=== PATIENT | female | born 1945 | race Caucasian/White ===

== ENCOUNTER 2016-03-13 14:48 | Inpatient (IN) | payer MEDICARE, MEDICAID ==
[2016-03-13] VITALS (7 sets, daily range): BP systolic 154–190; BP diastolic 74–87; PULSE 77–103; RESP 16–40; O2SAT 92–100
[~2016-03-13] VITALS: Ht 152.4 cm; Wt 50.5 kg
[~2016-03-13 14:48] MED LIST: ALBU2.5V4 INH; ALPR0.254 PO; AMLO10TA3 PO; ANAS1TAB7 PO; APIX2.5T PO; ASPI-973 PO; CALC-51 PO; CHOL100043 PO; CYAN250L PO; FLUT12AE4 INH; FUR20 PO; IBUP-1827 PO; IPRA4AER IH; ISOS30TA4 PO; LEVE10006 PO; LOPE2CAP PO; LORA0.5T PO; NIC7 TOPICAL; NITR0.4T SL; OMEP20CA11 PO; PHEN100C11 PO; POTA10CA42 PO; PRE10 PO; ROSU40TA20 PO; SERT100T9 PO; [UNRECOGNIZED DRUG - CODE] MM
--- NOTE | 2016-03-13 15:38 | DRSVH ---
PROCEDURE: X-RAY CHEST ONE VIEW, PORTABLE ([id number]) INDICATIONS: shortness of breath TECHNIQUE: One view of the chest was acquired. COMPARISON: 03/01/2016 FINDINGS: Chest is rotated to the left. Surgical changes and devices: Right cervical surgical clips, possibly representing thyroidectomy and guillermo resection Lungs and pleura: Small left pleural effusion appears improved. Degree of pulmonary vascular congesti on is stable, small septal lines present at the right base. Left upper lung field is relatively radio lucent. Focal density at the left base medially is no longer present. Mediastinum: Mediastinal contours appear normal. Heart size is normal. Aortic calcifications. Bones and chest wall: No suspicious bony lesions. Overlying soft tissues appear unremarkable. IMPRESSION: 1. Appearance is most suggestive of asymmetrical pulmonary edema, improved from last exam. This could also represent resolving pneumonia. 2. Small left pleural effusion may be slightly smaller. Dictated by: Luis A Rivera M.D. on 03/13/2016 at 15:36 Approved by: Luis A Rivera M.D. on 03/13/2016 at 15:36
[2016-03-13 15:49] LABS: EOSINOPHILS % (AUTO) 0.4 % (0-5); Mean Corpuscular Hemoglobin 23.3 pg (27.0-35.0); NEUTROPHILS % (AUTO) 75.8 % (40-74)
[2016-03-13 16:03] LABS: BASOPHILS % (AUTO) 0.4 % (0-3); MONOCYTES % (AUTO) 9.3 % (4-12); Mean Corpuscular Volume 82.8 fL (81-100); Platelet Count 147 bil/L (150-400)
[2016-03-13 16:25] LABS: TROPONIN T 0.043 ug/L (0.0-0.011)
[2016-03-13] MEDS ORDERED: Ipratropium 0.02% 0.5 mg/2.5 mL Inhalation Solution NEB ONE (16:50)
[2016-03-13] MEDS ORDERED: Albuterol 2.5 mg/3 mL Inhalation Solution NEB ONE (16:50)
--- NOTE | 2016-03-13 17:11 | ABG ---
DateTimeAnalyzed 17:06:00 -_ pH ____7.372 - 7.350 7.450 pCO2 ___60.9__ -mmHg 35.0 45.0 pO2 ___82.5__ -mmHg 69.0 116 HCO3- ___34.6__ -mmol/L 22.0 26.0 ABE ____8.4__ -mmol/L -2.0 2.0 tHb ____8.8__ -g/dL O2Hb ___92.4__ -% COHb ____3.1__ -% MetHb ____0.8__ -% sO2 ___96.2__ -% FIO2 ___31.0__ -% Drawn By jj - Date/Time Notified____ 17:10:00 -_ Spontaneous_RR ___30.0__ -b/min Oxygen Device 1 __CANNULA - Notified By jj - Notified Whom dr hudson - B 763 -mmHg tO2 ___11.6__ -Vol% Lars test _Positive -
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
[2016-03-13] MEDS ORDERED: Alum-Mag Hydrox-Simeth 30 mL Suspension PO PRN (18:10)
--- NOTE | 2016-03-13 18:53 | PCM.HPMED ---
Subjective Date of Service Mar 13, 2016 Primary Provider: Admitting Physician: Nataly Hayes MD Primary Care Physician: Emeterio Cadena MD Attending Physician: Nataly Hayes MD Chief Complaint: brought in by family because of worsening shortness of breath HISTORY was OBTAINED FROM PATIENT grandson / [facility] NOTES History of present illness 70-year-old female with known CHF and COPD and dementia, DO NOT RESUSCITATE/prior palliative care plan but family unable to care for her at this point, worsening of shortness of breath. Per ER doc, bronchospastic in the ER, she had home meds this am. There is questionable compliance with HOME lasix, duo nebs, Trilogy. ongoing smoking. Oxygen dependent at home. On 03/01/2016 she was evaluated by ER, due to increasing fluid in legs and sob/desat at home 80%, s/p lasix 20 iv x 1, discharged home w / lasix 20 PO. however, since that time, Per grandson, swelling of legs worse. She has refused SNF in past, generally wants to be at home as long as possible w / known severe morbidity. She does not endorse pneumonia/bronchitis symptoms of phelgm.urinary freq w/ lasix. Prior admission 12/2015 was attributed to pneumonia/COPD exacerbation w/ probable CHF. Review of Systems - none of the following - sick contact / wt change/ BOYD / n/v/ diarrhea / bleeding/bruising// yeast infections / rash FAMILY HX parents SOCIAL HX smoker, social drinker MEDICATIONS Amlodipine (Amlodipine) 10 Mg Tablet 10 MG PO DAILY Anastrozole (Anastrozole) 1 Mg Tablet 1 MG PO DAILY Apixaban (Eliquis) 2.5 Mg Tablet 2.5 MG PO BID Aspirin (Aspirin) 81 Mg Tablet 81 MG PO DAILY Calcium Carbonate/Vitamin D3 (Calcium 500 + Vit D 400 Tablet) 1 Each Tablet 1 EACH PO BID Cholecalciferol (Vitamin D3) (Vitamin D) 1,000 Unit Tablet 1,000 UNIT PO DAILY Cyanocobalamin (Vitamin B-12) (Vitamin B-12) 250 Mcg Lozenge 250 MCG PO DAILY Fluticasone/Salmeterol (Advair Hfa 115-21 Mcg Inhaler) 12 Gm Hfa.aer.ad 2 PUFF INH BID Furosemide (Furosemide) 20 Mg Tab 20 MG PO DAILY Isosorbide MN ER (Isosorbide MN ER) 30 Mg Tab.er.24h 30 MG PO DAILY Levetiracetam (Levetiracetam) 1,000 Mg Tablet 1,000 MG PO BID Nicotine 7 mg/24 hr Patch (Nicotine 7 mg/24 hr Patch) 1 Each Patch.td24 1 PATCH TOPICAL DAILY Omeprazole (Omeprazole) 20 Mg Capsule.dr 20 MG PO DAILYWD Phenytoin Sodium Extended (Phenytoin Sodium Extended) 100 Mg Capsule 300 MG PO HS Potassium Chloride (Potassium Chloride) 10 Meq Capsule.er 10 MEQ PO DAILY TAKE WITH FOOD Prednisone (PredniSONE) 10 Mg Tablet 40 MG PO DAILY Rosuvastatin Calcium (Rosuvastatin Calcium) 40 Mg Tablet 40 MG PO HS Sertraline HCl (Sertraline) 100 Mg Tablet 100 MG PO DAILY Scheduled PRN Albuterol Neb Soln (Albuterol Neb Soln) 2.5 Mg/3 Ml Vial.neb 2.5 MG INH q2 hours PRN PRN For Shortness of Breath Albuterol/Ipratropium (Combivent Respimat Inhal [place]) 120 Spr/4 Gm Inhaler 1 PUFF IH QID PRN PRN For Shortness of Breath Alprazolam (Alprazolam) 0.25 Mg Tablet 0.25 MG PO HS PRN PRN For Anxiety Ibuprofen (Ibuprofen) 600 Mg Tablet 600 MG PO TID PRN PRN For Pain Loperamide (Loperamide) 2 Mg Capsule 2-4 MG PO Q4H PRN PRN For Diarrhea or Loose Stool Lorazepam (Lorazepam) 0.5 Mg Tablet 0.25-0.5 MG PO q12 hours PRN PRN For Anxiety Nitroglycerin SL (Nitrostat) 0.4 Mg Tab.subl 0.4 MG SL Q5MIN PRN PRN For Chest Pain Saliva Substitution Combo No.9 (Biotene) 1,000 Ml Mouthwash 1,000 ML MM DAILY PRN PRN dry mouth Past Medical History breast cancer: Followed by Dr. aVldez. On letrozole, conservative 01/16/2016 pneumonia/COPD admission, DM type II . Hypertension. . Dyslipidemia . Coronary artery disease with h/o inferior [place]; RCA stenting. Cardiac catheterization (April 17, 2003) showed normal left main; minimal plaque in the mid LAD and first diagonal branch; minimal plaque in the AV groove of the circumflex distribution; totally occluded proximal RCA. Two stents were placed in the RCA with 50% residual stenosis between the stents; after revascularization of the RCA, 40% mid PDA stenosis noted. . COPD with ongoing tobacco abuse and home O2 at night. . Seizure disorder. Started in 2007 status post CVA colon cancer. partial right hemicolectomy and sigmoid colectomy for synchronous adenocarcinomas. cholecystectomy. . Diastolic congestive heart failure . Depression and anxiety . PVD; s/p R carotid endarterectomy x 2 (most recent in 2007) . h/o CVA status post 2 right-sided carotid endarterectomies, most recently in 2007, with perioperative stroke resulting in left hemiplegia which resolved almost entirely. . Osteoporosis by DEXA scan in 2008. . Chronic diarrhea Pneumonia COPD (on 2L at home) Atrial fibrillation Allergies Coded Allergies: lactose (Verified Allergy, Intermediate, Diarrhea, 01/16/16) PMH Social History Hx Alcohol Use: No Hx Substance Use: No Hx Tobacco Use: Yes (0.5-1ppd) Smoking Status: Current Every Day Smoker Exam Vital Signs Vital Sign - Last Date Time Temp Pulse Resp B/P Pulse Ox O2 Delivery O2 Flow Rate FiO2 03/13/16 17:14 78 30 96 Nasal Cannula 3 03/13/16 17:11 169/74 03/13/16 14:55 37.3 Lab and Diagnostics Labs Exam on admission 3LNC NAD A and O x 3 mood affect WNL sitting forward on multiple pillows, unenthusiatic to be hospitalized NC/AT no icterus no injected eyes EOMI PERRL no oral lesions / hearing intact Supple neck crackle bilateral equal chest rise / no accessory muscle use / speaks in full sentences / no rrw RRR S1 S2 / no mrg / 2+ radial pulses Soft nt nd + BS no hepatosplenomegaly moderate sawyer edema no cyanosis no ecchymosis of lower extremities No rash / no jaundice CALDERA EKG Bigemminy PVC SR CXR bilateral pl effusion/infiltrates bilateeral lower lobes Ca/Mg WNL BNP 20,000, worse than usual Renal function studies Baseline Trop Baseline / elevated Result Diagram: 03/13/16 1535 03/13/16 1535 Assessment & Plan Active issues and reason for admission 70-year-old female with acute on chronic respiratory failure, worse hypoxia, due to sCHF exacerbation, less likely COPD exacerbation/pneumonia. -- Diuretics/Lasix - start in morning lasix 40 IV, allow some rest tonight. at home lasix 20 PO, monitor PVCs -- Duo nebs BiPAP oxygen dependent Chronic issues known prior to admission, present on admission, resume home medications, grandson to bring in eliquis and anastrarazole in the mronign Diabetes CKD CAD/PVD seizures mood HTN - hold amlodipine while diuresing, consider it as contributing to lower extremity edema Breast cancer Diet diabetic DVT prophylaxis eliquis Code DO NOT RESUSCITATE Disposition inpatient status , palliative care notes indicate goal for comfort at home as long as possible. grandson to bring in eliquis and anastrozol Assessment and plan were discussed with patient family. Nataly Hayes MD Mar 13, 2016 18:53 Nataly Hayes MD Mar 13, 2016 18:53 Nataly Hayes MD Mar 13, 2016 18:53
[2016-03-13] MEDS: Albuterol 2.5 mg/3 mL Inhalation Solution NEB SCH (20:12)
[2016-03-13] MEDS ORDERED: Furosemide 10 mg/mL 2 mL Inj IVPUSH SCH (20:30)
[2016-03-13] MEDS ORDERED: Phenytoin 100 mg ER Capsule PO SCH (21:00)
--- NOTE | 2016-03-13 21:18 | DRSVH ---
PROCEDURE: X-RAY CHEST ONE VIEW, PORTABLE ([id number]) INDICATIONS: dyspnea TECHNIQUE: One view of the chest was acquired. COMPARISON: None. FINDINGS: Surgical changes and devices: Fecal clips are projected over the right neck soft tissues. Lungs and pleura: Diffuse increased interstitial markings and airspace opacities are present bilatera lly, right greater than left. Dense opacity is seen in the retrocardiac region laterally. Mediastinum: Mediastinal contours appear unchanged. Heart size is unchanged. Bones and chest wall: No suspicious bony lesions. Overlying soft tissues appear unremarkable. IMPRESSION: Interval progression in bilateral, left greater than right, diffuse interstitial and airspace disease are differential considerations include pulmonary interstitial/alveolar edema secondary to CHF and/o r diffuse inflammatory process. Recommend followup chest x-ray to ascertain resolution. Dictated by: Francesca Davis M.D. on 03/13/2016 at 21:16 Approved by: Francesca Davis M.D. on 03/13/2016 at 21:16
[2016-03-13] MEDS ORDERED: levETIRAcetam 500 mg Tablet PO SCH (22:10)
[2016-03-14] VITALS (15 sets, daily range): BP systolic 113–188; BP diastolic 72–80; PULSE 51–95; RESP 18–24; O2SAT 89–98
[2016-03-14] MEDS: Phenytoin 100 mg ER Capsule PO SCH ×2 (00:06→21:30)
[2016-03-14] MEDS: levETIRAcetam 500 mg Tablet PO SCH ×3 (00:07→21:30)
[2016-03-14] MEDS ORDERED: Heparin 5,000 Unit/mL Inj SUBQ SCH (00:30)
[2016-03-14] MEDS: Albuterol 2.5 mg/3 mL Inhalation Solution NEB SCH ×7 (00:33→23:53)
--- NOTE | 2016-03-14 02:31 | NUR ---
Admit to [facility] [place] [facility] Patient alert and orientedx3 able to make needs known. denies pain. IV SL. RT in to give breathing treatment. vitals stable. patient oriented to bed and call light. bed alarm in place due to recent falls. patient states no medication list and she is unaware of the dosing of her medications. admission assessment completed.
--- NOTE | 2016-03-14 02:33 | NUR ---
Med rec not completed/BIPAP Patients grandson at bedside. Grandson refusing to bring in patients own home medication. he appeared frustrated that we could not use the list we have on record. he is unaware of the names and dosing. patient is unaware of names and dosing. Grandson requesting that patient get her night time Dilantin unaware of dosing. MD notified. MD added medication from previous record/admission. patient reports "yeah that is right". Patient states her pharmacy is mail order and [facility] in [place]. son frustrated that we can not provide patient with a Bipap unit here. RT explained that she does not have the patients correct setting and to use 02 and CPOX tonight until grandson can bring it in. Asked grandson to bring in BIPAP unit tomorrow for patient. will continue to monitor.
--- NOTE | 2016-03-14 02:38 | NUR ---
Grandson Visiting Received in report that patient was to have limited visitors per her request. at 2100 noticed that grandson was at bedside. patient is alert and oriented. able to make her own needs known. patient did not ask grandson to leave. I notified charge nurse who was unaware of the situation. When grandson left i spoke with the patient. She stated that she did not want me to restrict her visitors. her grandson is bringing in her purse and belongings tomorrow and she wants to have that discussion with him then. reinforced to patient that we can restrict her visitors and to communicate it with us and we will make it possible.
[2016-03-14] MEDS ORDERED: Furosemide 10 mg/mL 2 mL Inj IVPUSH SCH ×2 (07:30→14:30)
[2016-03-14] MEDS: Isosorbide Mononitrate 30 mg ER24 Tablet PO SCH (07:49)
[2016-03-14] MEDS: Pantoprazole 40 mg ER24 Tablet PO SCH (07:49)
[2016-03-14 08:34] LABS: APPEARANCE,URINE HAZY (CLEAR,HAZY); COLOR,URINE YELLOW (YELLOW); OCCULT BLOOD,URINE TRACE (NEGATIVE); PH,URINE 5.5 (5.0-8.0); UROBILINOGEN,URINE NORMAL (NORMAL)
[2016-03-14] MEDS ORDERED: Furosemide 10 mg/mL 4 mL Inj IVPUSH SCH (09:20)
[2016-03-14] MEDS ORDERED: 0.9% Sodium Chloride 50 ML ONE (10:32)
[2016-03-14] MEDS ORDERED: Furosemide 10 mg/mL 2 mL Inj IVPUSH ONE (11:15)
[2016-03-14 11:53] LABS: BASOPHILS % (AUTO) 0.4 % (0-3); EOSINOPHILS % (AUTO) 0.7 % (0-5); MONOCYTES % (AUTO) 8.4 % (4-12); Mean Corpuscular Hemoglobin 23.5 pg (27.0-35.0); Mean Corpuscular Volume 83.9 fL (81-100); NEUTROPHILS % (AUTO) 81.9 % (40-74); Platelet Count 149 bil/L (150-400)
[2016-03-14 12:37] LABS: TROPONIN T 0.042 ug/L (0.0-0.011)
[2016-03-14 12:48] LABS: Magnesium 1.7 mg/dL (1.6-2.6); Phosphorus 3.2 mg/dL (2.5-4.9)
--- NOTE | 2016-03-14 14:39 | PCM.PNMED ---
Subjective Date of Service Mar 14, 2016 Subjective Patient is laying in bed with labored breathing, O2 94% on 3L NC. She seems to be somewhat agitated. She denies any pain. Staff is awaiting her her grandson to bring home BiPAP and medication list. Exam Vital Signs Vital Sign - Last Date Time Temp Pulse Resp B/P Pulse Ox O2 Delivery O2 Flow Rate FiO2 03/14/16 12:26 81 20 91 Nasal Cannula 2.00 03/14/16 06:23 36.6 155/74 Intake and Output 03/13/16 03/13/16 03/14/16 Cumulative From/Thru 14:59 22:59 06:59 03/13/16 14:55 - 03/14/16 06:43 Intake Total 590 ml 590 ml Output Total 800 ml 800 ml Balance -210 ml -210 ml Intake Oral 580 ml 580 ml IV Total 10 ml 10 ml Output Urine Total 800 ml 800 ml Exam General: NAD, A&O x 3, agitated Head: NC/AT, no icterus, EOMI, PERRL Neck: Supple, no lymphadenopathy Resp: Crackle bilateral, wheezing anteriorly bilateral, R>L , O2 3L NC Heart: RRR, normal S1 S2, no mrg, 2+ radial pulses Abd: Soft, nontender, nondistended, + BS Extremities: +2 Pitting edema feet and sawyer edema, no cyanosis, no ecchymosis Skin: No rash / no jaundice IVs and Medications Medications Reviewed: Medications were reviewed in detail Lab and Diagnostics Result Diagram: 03/14/16 1141 03/14/16 1141 X-Rays, CTs and MRIs PROCEDURE: X-RAY CHEST ONE VIEW, PORTABLE ([id number]) IMPRESSION: 1. Appearance is most suggestive of asymmetrical pulmonary edema, improved from last exam. This could also represent resolving pneumonia. 2. Small left pleural effusion may be slightly smaller. Dictated by: Luis A Rivera M.D. on 03/13/2016 at 15:36 Approved by: Luis A Rivera M.D. on 03/13/2016 at 15:36 PROCEDURE: X-RAY CHEST ONE VIEW, PORTABLE ([id number]) IMPRESSION: Interval progression in bilateral, left greater than right, diffuse interstitial and airspace disease are differential considerations include pulmonary interstitial/alveolar edema secondary to CHF and/or diffuse inflammatory process. Recommend followup chest x-ray to ascertain resolution. Dictated by: Francesca Davis M.D. on 03/13/2016 at 21:16 Approved by: Francesca Davis M.D. on 03/13/2016 at 21:16 12-lead ECG ECG Interpretation: Normal sinus rhythm with ventricular bigeminy, probable anterior infarct old, aside from the bigeminy and the EKG appears unchanged compared to 03/01/2016, there is also LVH with repolarizaton Time: 15:25 Interpreted by: ED physician Additional Diagnostics Interpretation & Diagnostics pH 7.372 pCO2 61 pO2 82.5 cHCO3, - (P) 34.6 cBase (B) 8.4 Assessment & Plan This is a 70-year-old female with past medical history of COPD oxygen dependent at home, chronic tobacco dependency, hypertension, diabetes, coronary artery disease, and recent hospitalization for pulmonary embolism in the end of November. Patient presented to hospital ER via EMS following worsening shortness of breath and progressive weakness. 1. Acute on chronic systolic congestive heart failure, present on admission. -Echocardiogram (10/23/2015): The ejection fraction is estimated to be 35-40%, which is decreased from her prior echo in 03/2015 with estimated EF of 45% -Pro-BNP 04359 -Chest x-ray suggesting bilateral pulmonary edema -Lasix 20 mg IV q6h x 12 doses -Metolazone 5 mg PO qd x 3 days -Hold Amlodipine 2. Acute kidney injury, present on admission, active, probable chronic kidney disease at baseline stage III. -Cr 1.61. Her Cr has been slowly going up since 10/06 when it was 1.03. Her Cr has been consistently >1.5 since 01/06. Last recorded Cr on 03/01/16 was 1.32 -Etiology multifactorial - Lasix, CHF -Avoid nephrotoxic agents -Monitor with BMP 3. Possible acute exacerbation of COPD, present on admission, active -No changes to current approach, would continue bronchodilators. 4. Elevated troponin of unknown etiology, chronic, present on admission. -Troponin 0.043 on admission -Consistently elevated troponin -Pharm stress test 04/14/15 done showing evidence for a myocardial infarct affecting the inferior/inferoseptal wall without evidence for significant periinfarct ischemia -No further cardiac workup 5. Diabetes mellitus, non-insulin using, chronic, present on admission, presumed stable -HbA1c 6.2% (01/17/2016) -Constant carbohydrate diet -Bedside blood glucose checks 6. Depression and anxiety, present on admission, ongoing -Continue Sertraline 100 mg PO daily and Lorazepam PRN 7. CAD s/p RCA stent placement, chronic, present on admission, stable -Continue statin (Atorvastatin 40 mg) -Continue isosorbide mononitrate 8. Seizure disorder, chronic, present on admission, presumed stable -Phenytoin level pending -Keppra levels pending -Continue Keppra 1000mg BID and Phenytoin 300mg daily hs 9. Tobacco use disorder, chronic,present on admission - Nicotine patch 21mg daily Pain Evaluation: Adequate Pain Control GI Prophylaxis: Not indicated VTE Prophylaxis: Sub-Q Heparin (Unfractionated) Resuscitation Status: DNR/DNI:Do Not Resuscitate/Intubate Attending Statement The patient was seen and examined together with Dr. Gonzalez on 03/14/2016 and I agree with the history, exam and plan as outlined in the note above. RAFAEL GONZALEZ DO Mar 14, 2016 14:39 Quentin Dickerson MD Mar 15, 2016 09:18
--- NOTE | 2016-03-14 15:23 | NUR ---
SCD's Pt unable to wear SCD's at this time as she has bilateral pitting edema.
--- NOTE | 2016-03-14 15:57 | NUR ---
Social Work: Initial Assessment Data: Pt is a 70 y/o female admitted for COPD, CHF. Pt's PCP is Dr. Cadena, pt's insurance is [employer]. Pt's Readmit score is not listed. CLUSTER BORE OPERATOR met with pt at bedside, role explained. Pt states she lives in her own home where her grandson is her main caregiver. Pt reports that her daughter is a good support to contact if needed and that she is also her DPOA. CLUSTER BORE OPERATOR requested DPOA paperwork from pt. Pt states she has had [facility] in the past, no SNF stay, no LTC insurance, no VA benefits, and is not a caregiver for another. Pt does not drive. She states that she will likely get a ride home with her daughter that she lives next door to. CLUSTER BORE OPERATOR will continue to follow, possible HH need. Assessment: Pt with caregiving at baseline. Plan: Pt will likely d/c home via POV when medically stable, CLUSTER BORE OPERATOR to R/O possible home health need. CLUSTER BORE OPERATOR will continue to follow. MELVI Almonte Addendum: 03/14/16 at 1601 by JOSE ARMANDO TURNER Amended: Links added.
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
[2016-03-14] MEDS: LORazepam 0.5 mg Tablet PO PRN (19:51)
[2016-03-14] MEDS ORDERED: Furosemide 10 mg/mL 4 mL Inj IVPUSH ONE (21:50)
[2016-03-15] VITALS (15 sets, daily range): BP systolic 137–191; BP diastolic 57–97; PULSE 70–92; RESP 18–24; O2SAT 84–97
[2016-03-15] MEDS: Furosemide 10 mg/mL 2 mL Inj IVPUSH SCH ×4 (02:57→20:36)
[2016-03-15] MEDS: Albuterol 2.5 mg/3 mL Inhalation Solution NEB SCH ×6 (04:30→20:51)
[2016-03-15] MEDS ORDERED: Labetalol 5 mg/mL 4 mL Inj IVPUSH PRN (05:35)
[2016-03-15 06:16] LABS: BASOPHILS % (AUTO) 0.1 % (0-3); EOSINOPHILS % (AUTO) 0.6 % (0-5); MONOCYTES % (AUTO) 10.1 % (4-12); Mean Corpuscular Volume 82.2 fL (81-100); NEUTROPHILS % (AUTO) 77.9 % (40-74); Platelet Count 132 bil/L (150-400)
--- NOTE | 2016-03-15 07:28 | NUR ---
Blood pressure Patients blood pressure elevated, notified. new order for labetalol IV. patient sleeping. rechecked blood pressure and 160/87. patient appeared comfortable HR 80's. held IV labetalol for now. will continue to monitor.
[2016-03-15] MEDS: levETIRAcetam 500 mg Tablet PO SCH ×2 (10:15→20:31)
[2016-03-15] MEDS: Isosorbide Mononitrate 30 mg ER24 Tablet PO SCH (10:16)
[2016-03-15] MEDS: Pantoprazole 40 mg ER24 Tablet PO SCH (10:16)
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
--- NOTE | 2016-03-15 14:44 | NUR ---
gave verbal consent to [facility] at 143
--- NOTE | 2016-03-15 15:26 | PCM.PNMED ---
Subjective Date of Service Mar 15, 2016 Subjective Patient is at her baseline. This morning O2 94% 2L NC. Patient states she is very tired and sleepy. Denies any symptoms. Exam Vital Signs Vital Sign - Last Date Time Temp Pulse Resp B/P Pulse Ox O2 Delivery O2 Flow Rate FiO2 03/15/16 13:09 36.6 75 18 149/57 94 Nasal Cannula 2.50 Intake and Output 03/14/16 03/14/16 03/15/16 Cumulative From/Thru 15:00 23:00 07:00 03/13/16 14:55 - 03/15/16 06:13 Intake Total 947 ml 0 ml 1537 ml Output Total 500 ml 2500 ml 1850 ml 5650 ml Balance -500 ml -1553 ml -1850 ml -4113 ml Intake Oral 947 ml 0 ml 1527 ml IV Total 10 ml Output Urine Total 500 ml 2500 ml 1850 ml 5650 ml # Voids 3 3 # Bowel Movements 1 1 2 Exam General: sleepy, NAD, A&O x 3 Head: NC/AT, no icterus, EOMI, PERRL Neck: Supple, no lymphadenopathy Resp: Crackle bilateral improved, wheezing anteriorly bilateral, R>L Heart: RRR, normal S1 S2, no mrg, 2+ radial pulses Abd: Soft, nontender, nondistended, + BS Extremities: +2 Pitting edema feet and sawyer, improved, no cyanosis, no ecchymosis Skin: No rash / no jaundice Lab and Diagnostics Result Diagram: 03/15/16 0507 03/15/16 0507 X-Rays, CTs and MRIs PROCEDURE: X-RAY CHEST ONE VIEW, PORTABLE ([id number]) IMPRESSION: 1. Appearance is most suggestive of asymmetrical pulmonary edema, improved from last exam. This could also represent resolving pneumonia. 2. Small left pleural effusion may be slightly smaller. Dictated by: Luis A Rivera M.D. on 03/13/2016 at 15:36 Approved by: Luis A Rivera M.D. on 03/13/2016 at 15:36 PROCEDURE: X-RAY CHEST ONE VIEW, PORTABLE ([id number]) IMPRESSION: Interval progression in bilateral, left greater than right, diffuse interstitial and airspace disease are differential considerations include pulmonary interstitial/alveolar edema secondary to CHF and/or diffuse inflammatory process. Recommend followup chest x-ray to ascertain resolution. Dictated by: Francesca Davis M.D. on 03/13/2016 at 21:16 Approved by: Francesca Davis M.D. on 03/13/2016 at 21:16 12-lead ECG ECG Interpretation: Normal sinus rhythm with ventricular bigeminy, probable anterior infarct old, aside from the bigeminy and the EKG appears unchanged compared to 03/01/2016, there is also LVH with repolarizaton Time: 15:25 Interpreted by: ED physician Additional Diagnostics Interpretation & Diagnostics pH 7.372 pCO2 61 pO2 82.5 cHCO3, - (P) 34.6 cBase (B) 8.4 Assessment & Plan This is a 70-year-old female with past medical history of COPD oxygen dependent at home, chronic tobacco dependency, hypertension, diabetes, coronary artery disease, and recent hospitalization for pulmonary embolism in the end of November. Patient presented to hospital ER via EMS following worsening shortness of breath and progressive weakness. 1. Acute on chronic systolic congestive heart failure, present on admission. -Echocardiogram (10/23/2015): The ejection fraction is estimated to be 35-40%, which is decreased from her prior echo in 03/2015 with estimated EF of 45% -Pro-BNP 49769 -Chest x-ray suggesting bilateral pulmonary edema -Lasix 20 mg IV q6h x 12 doses -Metolazone 5 mg PO qd x 3 days -Hold Amlodipine -Start Coreg 3.124 bid for elevated blood pressure 2. Acute kidney injury, present on admission, active, probable chronic kidney disease at baseline stage III. -Cr 1.61. Her Cr has been slowly going up since 10/06 when it was 1.03. Her Cr has been consistently >1.5 since 01/06. Last recorded Cr on 03/01/16 was 1.32. Today Cr 1.44 -Etiology multifactorial - Lasix, CHF -Avoid nephrotoxic agents -Monitor with BMP 3. Possible acute exacerbation of COPD, present on admission, active -No changes to current approach, would continue bronchodilators. 4. Elevated troponin of unknown etiology, chronic, present on admission. -Troponin 0.043 on admission -Consistently elevated troponin -Pharm stress test 04/14/15 done showing evidence for a myocardial infarct affecting the inferior/inferoseptal wall without evidence for significant periinfarct ischemia -No further cardiac workup 5. Diabetes mellitus, non-insulin using, chronic, present on admission, presumed stable -HbA1c 6.2% (01/17/2016) -Constant carbohydrate diet -Bedside blood glucose checks 6. Depression and anxiety, present on admission, ongoing -Continue Sertraline 100 mg PO daily and Lorazepam PRN 7. CAD s/p RCA stent placement, chronic, present on admission, stable -Continue statin (Atorvastatin 40 mg) -Continue isosorbide mononitrate 8. Seizure disorder, chronic, present on admission, presumed stable -Phenytoin level 11.0 -Keppra levels pending -Continue Keppra 1000mg BID and Phenytoin 300mg daily hs 9. Tobacco use disorder, chronic,present on admission - Nicotine patch 21mg daily Pain Evaluation: Adequate Pain Control GI Prophylaxis: Proton Pump Inhibitor VTE Prophylaxis: Sub-Q Heparin (Unfractionated) Resuscitation Status: DNR/DNI:Do Not Resuscitate/Intubate copies to: Emeterio Cadena MD, OKSANA S DO Mar 15, 2016 15:26
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
[2016-03-15] MEDS: Phenytoin 100 mg ER Capsule PO SCH (20:31)
[2016-03-16] VITALS (12 sets, daily range): BP systolic 131–178; BP diastolic 74–87; PULSE 62–107; RESP 18–36; O2SAT 88–98
[2016-03-16] MEDS: LORazepam 0.5 mg Tablet PO PRN ×2 (00:21→04:29)
[2016-03-16] MEDS: Furosemide 10 mg/mL 2 mL Inj IVPUSH SCH ×2 (03:26→08:37)
[2016-03-16] MEDS: Albuterol 2.5 mg/3 mL Inhalation Solution NEB SCH ×5 (04:30→20:46)
[2016-03-16] MEDS: levETIRAcetam 500 mg Tablet PO SCH ×2 (08:36→20:59)
[2016-03-16] MEDS: Isosorbide Mononitrate 30 mg ER24 Tablet PO SCH (08:37)
[2016-03-16] MEDS: Pantoprazole 40 mg ER24 Tablet PO SCH (08:37)
--- NOTE | 2016-03-16 11:18 | NUR ---
Respiratory: Responding to oximeter alarm, entered patients room and O2 sats 77%. Patient home BiPap was on. Received in report from NOC RN that RT had concerns that home unit was not working appropriately. Patient placed on nasal cannula 4L oxygen. Patients O2 sats increased to low to mid 90s. Notified day RT to inspect home BiPap unit. Patient sleeping w/BiPap on, O2 sats remaining low to mid 90s obtained by RELIGION PROFESSOR.
[2016-03-16 12:05] LABS: BASOPHILS % (AUTO) 0.4 % (0-3); EOSINOPHILS % (AUTO) 0.6 % (0-5); MONOCYTES % (AUTO) 8.7 % (4-12); Mean Corpuscular Hemoglobin 23.3 pg (27.0-35.0); Mean Corpuscular Volume 81.7 fL (81-100); NEUTROPHILS % (AUTO) 78.3 % (40-74); Platelet Count 132 bil/L (150-400)
--- NOTE | 2016-03-16 12:18 | NUR ---
Evaluation completed. Please go to "Notes" then click on "Assessments and Notes" (bottom left corner of screen). Then select appropriate discipline tab on top of screen.
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
--- NOTE | 2016-03-16 15:10 | NUR ---
Social Work: Readiness for d/c Data: Pt is on day 3 of hospitalization. EMR reviewed, pt discussed in rounds. states pt likely to d/c tomorrow. PT is recommending SNF. LABORER POWERHOUSE spoke with pt, gave her SNF/HH choice list. Pt agreeable to referrals being sent to [facility] and [facility]. LABORER POWERHOUSE called both locations, access given. LABORER POWERHOUSE will continue to follow. Assessment: Pt who has caregiving at baseline. Plan: Pt will d/c to SNF, pending [facility] authorization, when medically stable, likely tomorrow. Referrals sent to [facility] and [facility]. LABORER POWERHOUSE will continue to follow. MELVI Almonte
[2016-03-16] MEDS ORDERED: Magnesium Sulf 2 Gm/50mL Water 2 GM in IV Premix 1 EACH IV ONE (15:30)
[2016-03-16] MEDS: Potassium Chloride 20 mEq SR Tablet PO SCH (17:41)
[2016-03-16] MEDS: Phenytoin 100 mg ER Capsule PO SCH (20:59)
--- NOTE | 2016-03-16 22:00 | NUR ---
HTN Elevated BP of 178/86 at 2047 by CERTIFIED PUBLIC ACCOUNTANT. Administered PRN dose IV Labetalol. BP reduced to 145/70. Continuing to monitor.
[2016-03-17] VITALS (14 sets, daily range): BP systolic 121–158; BP diastolic 57–84; PULSE 60–88; RESP 18–24; O2SAT 75–96
[2016-03-17] MEDS: Albuterol 2.5 mg/3 mL Inhalation Solution NEB SCH ×6 (03:47→20:10)
[2016-03-17] MEDS: Pantoprazole 40 mg ER24 Tablet PO SCH (08:34)
[2016-03-17] MEDS: levETIRAcetam 500 mg Tablet PO SCH ×2 (08:34→21:30)
[2016-03-17] MEDS: Isosorbide Mononitrate 30 mg ER24 Tablet PO SCH (08:34)
[2016-03-17] MEDS: Potassium Chloride 20 mEq SR Tablet PO SCH ×2 (08:35→17:04)
[2016-03-17] MEDS: LORazepam 0.5 mg Tablet PO PRN ×3 (08:35→23:12)
--- NOTE | 2016-03-17 08:35 | NUR ---
KEITH signed Verbal permission to sign by pt's daughter over phone. MELVI Almonte
--- NOTE | 2016-03-17 10:16 | NUR ---
Social Work: Readiness for d/c Data: Pt is on day 4 of hospitalization. EMR reviewed, pt discussed in rounds. MD states pt likely ready for d/c today. REGIONAL OPERATIONS DIRECTOR notified UR nurse to call [facility] for an authorization, [facility] is closed today. Pt cannot d/c to SNF today because of this. [facility] Owsleykaren Mann and Kareen Palacios continue to review pt. REGIONAL OPERATIONS DIRECTOR paged MD to notify of this change. REGIONAL OPERATIONS DIRECTOR will continue to follow. Assessment: Pt with caregiving at baseline. Plan: Pt will d/c likely to SNF pending [facility] authorization. [facility] [employer] and Kareen Palacios continue to review pt. REGIONAL OPERATIONS DIRECTOR will continue to follow. MELVI Almonte
--- NOTE | 2016-03-17 10:45 | PCM.PNMED ---
Subjective Date of Service Mar 17, 2016 Subjective Overnight: No acute events Today: Asleep, aroused to voice. Denied SOB, CP, pain. Sleepy. No acute distress Exam Vital Signs Vital Sign - Last Date Time Temp Pulse Resp B/P Pulse Ox O2 Delivery O2 Flow Rate FiO2 03/17/16 09:07 36.7 78 23 132/78 89 Nasal Cannula 3.00 Intake and Output 03/16/16 03/16/16 03/17/16 Cumulative From/Thru 15:00 23:00 07:00 03/13/16 14:55 - 03/17/16 06:20 Intake Total 1076 ml 0 ml 3707 ml Output Total 900 ml 630 ml 9130 ml Balance 176 ml -630 ml -5423 ml Intake Oral 1076 ml 0 ml 3697 ml IV Total 10 ml Output Urine Total 900 ml 630 ml 9130 ml # Voids 3 # Bowel Movements 3 0 6 Exam General: Sleepy, no acute distress HENT: Atraumatic; sclera anicteric; mucus membranes moist Neck: Soft, no JVD Cardiac: Regular rate and rhythm; no murmurs appreciated Respiratory: Decrease breath sounds all gilman; no crackles appreciated; mild bilateral upper wheeze Abdomen: Soft, nontender, nondistended Extremities: No edema upper extremities; trace bilateral lower extremity edema at ankles Psych: Some interaction; limited insight and judgment Skin: Warm and dry Lab and Diagnostics Result Diagram: 03/16/16 1135 03/17/16 0500 X-Rays, CTs and MRIs PROCEDURE: X-RAY CHEST ONE VIEW, PORTABLE ([id number]) IMPRESSION: 1. Appearance is most suggestive of asymmetrical pulmonary edema, improved from last exam. This could also represent resolving pneumonia. 2. Small left pleural effusion may be slightly smaller. Dictated by: Luis A Rivera M.D. on 03/13/2016 at 15:36 Approved by: Luis A Rivera M.D. on 03/13/2016 at 15:36 PROCEDURE: X-RAY CHEST ONE VIEW, PORTABLE ([id number]) IMPRESSION: Interval progression in bilateral, left greater than right, diffuse interstitial and airspace disease are differential considerations include pulmonary interstitial/alveolar edema secondary to CHF and/or diffuse inflammatory process. Recommend followup chest x-ray to ascertain resolution. Dictated by: Francesca Davis M.D. on 03/13/2016 at 21:16 Approved by: Francesca Davis M.D. on 03/13/2016 at 21:16 12-lead ECG ECG Interpretation: Normal sinus rhythm with ventricular bigeminy, probable anterior infarct old, aside from the bigeminy and the EKG appears unchanged compared to 03/01/2016, there is also LVH with repolarizaton Time: 15:25 Interpreted by: ED physician Additional Diagnostics Interpretation & Diagnostics pH 7.372 pCO2 61 pO2 82.5 cHCO3, - (P) 34.6 cBase (B) 8.4 Assessment & Plan This is a 70-year-old female with past medical history of COPD oxygen dependent at home, chronic tobacco dependency, hypertension, diabetes, coronary artery disease, and recent hospitalization for pulmonary embolism in the end of November. Patient presented to hospital ER via EMS following worsening shortness of breath and progressive weakness. 1. Acute on chronic systolic congestive heart failure, present on admission. -Echocardiogram (10/23/2015): The ejection fraction is estimated to be 35-40%, which is decreased from her prior echo in 03/2015 with estimated EF of 45% -Pro-BNP 00820 -Chest x-ray suggesting bilateral pulmonary edema -Stop Lasix 20 mg IV q6h x 12 doses -Restart home Lasix 20 mg PO daily -Metolazone 5mg x3d completed -Hold Amlodipine -Increase Coreg--> 6.25 bidwm 2. Acute kidney injury, present on admission, active, probable chronic kidney disease at baseline stage III. Ongoing - Possibly secondary to increased diuresis on admission -Cr has been slowly going up since 10/06 when it was 1.03. Her Cr has been consistently >1.5 since 01/06 -Cr 03/17: 1.97 -Etiology multifactorial - Lasix, CHF -Avoid nephrotoxic agents -Monitor with BMP 3. Possible acute exacerbation of COPD, present on admission, active -No changes to current approach, would continue bronchodilators. 4. Elevated troponin of unknown etiology, chronic, present on admission. -Troponin 0.043 on admission -Consistently elevated troponin -Pharm stress test 04/14/15 done showing evidence for a myocardial infarct affecting the inferior/inferoseptal wall without evidence for significant mika- infarct ischemia -No further cardiac workup 5. Diabetes mellitus, non-insulin using, chronic, present on admission, presumed stable -HbA1c 6.2% (01/17/2016) -Constant carbohydrate diet 6. Depression and anxiety, present on admission, ongoing -Continue Sertraline 100 mg PO daily and Lorazepam PRN 7. CAD s/p RCA stent placement, chronic, present on admission, stable -Continue statin (Atorvastatin 40 mg) -Continue isosorbide mononitrate 8. Seizure disorder, chronic, present on admission, presumed stable -Phenytoin level 11.0 -Keppra levels pending -Continue Keppra 1000mg BID and Phenytoin 300mg daily hs 9. Tobacco use disorder, chronic,present on admission - Nicotine patch 21mg daily Dispo: Will DC to SNF when approved. Awaiting placement. Pain Evaluation: Adequate Pain Control GI Prophylaxis: Proton Pump Inhibitor VTE Prophylaxis: Sub-Q Heparin (Unfractionated) Resuscitation Status: DNR/DNI:Do Not Resuscitate/Intubate Time spent 35 minutes Attending Statement I interviewed and examined the patient on rounds today. I agree with the assessment and plan as stated above. Patient seems to have worsening confusion in addition to her chronic COPD. These appear to be chronic issues and she may be discharged to appropriate care setting when available. Zayda Horner DO Mar 17, 2016 10:45 Vasyl Mesa MD Mar 17, 2016 16:35
[2016-03-17] MEDS ORDERED: Glucose 40% Oral Gel 15 Gm Tube PO PRN (13:05)
--- NOTE | 2016-03-17 14:01 | NUR ---
Social Work: Continued d/c planning Data: Pt is on day 4 of hospitalization. BUSINESS COMPUTERS TEACHER spoke with pt's daughter Jessie on the phone regarding d/c plan. She states that she is happy that SNF is an option and the current plan. She states that her mom has been a little confused lately and that she is too much work for pt's grandson. BUSINESS COMPUTERS TEACHER will continue to follow. MELVI Almonte
--- NOTE | 2016-03-17 14:03 | NUR ---
[facility] can accept pt. Yuridia Suarez, SONOSCOPE OPERATOR
[2016-03-17] MEDS: Insulin LISPRO 300 Unit/3 mL Inj SUBQ SCH ×2 (17:04→22:21)
[2016-03-17] MEDS: Phenytoin 100 mg ER Capsule PO SCH (21:30)
[2016-03-17] MEDS: Insulin GLARgine 100 Unit/mL Syringe SUBQ SCH (21:36)
[2016-03-18] VITALS (13 sets, daily range): BP systolic 148–164; BP diastolic 72–85; PULSE 59–99; RESP 16–44; O2SAT 89–99
[2016-03-18] MEDS: LORazepam 0.5 mg Tablet PO PRN (01:13)
[2016-03-18] MEDS: Albuterol 2.5 mg/3 mL Inhalation Solution NEB SCH ×6 (01:45→20:03)
--- NOTE | 2016-03-18 05:54 | NUR ---
O2 Sats/Behavior Pt on CPOX with SpO2 88-92% goal w/ 1-2L NC. Pt will change positions in bed, often with head down resulting in drop in saturation. Found pt once laying flat in bed, c/o difficulty breathing. Encouraged pt to lie in bed with HOB elevated. Trilogy setup not appearing to work as well as 2L on NC. When pt is in bed with HOB elevated and 2L NC, SpO2 is 95%.
[2016-03-18 06:19] LABS: BASOPHILS % (AUTO) 0.4 % (0-3); EOSINOPHILS % (AUTO) 0.5 % (0-5); MONOCYTES % (AUTO) 12.4 % (4-12); Mean Corpuscular Hemoglobin 22.6 pg (27.0-35.0); Mean Corpuscular Volume 83.2 fL (81-100); Platelet Count 127 bil/L (150-400)
[2016-03-18] MEDS: Insulin LISPRO 300 Unit/3 mL Inj SUBQ SCH ×4 (08:00→20:54)
[2016-03-18] MEDS: Pantoprazole 40 mg ER24 Tablet PO SCH (08:21)
[2016-03-18] MEDS: levETIRAcetam 500 mg Tablet PO SCH ×2 (08:25→23:47)
[2016-03-18] MEDS: Isosorbide Mononitrate 30 mg ER24 Tablet PO SCH (08:26)
[2016-03-18] MEDS: Potassium Chloride 20 mEq SR Tablet PO SCH ×2 (08:28→17:15)
--- NOTE | 2016-03-18 08:37 | NUR ---
Called and spoke with Roula Higginbotham CM at [facility] and asked her to review patient for transfer to halfway today. Patient is ready for discharge. Addendum: 03/18/16 at 0912 by UVALDO BANKS CM Roula has approved [facility]. SHOVEL ENGINEER note stated [facility] has accepted patient. Updated SHOVEL ENGINEER
--- NOTE | 2016-03-18 12:35 | DRSVH ---
PROCEDURE: X-RAY CHEST ONE VIEW, PORTABLE ([id number]) INDICATIONS: dyspnea TECHNIQUE: One view of the chest was acquired. COMPARISON: [facility], CR, XR CHEST 1VW (PORTABLE), 03/13/2016, 19:13. FINDINGS: Surgical changes and devices: Multiple right cervical surgical clips are noted. Lungs and pleura: There is improved aeration of the right lung when compared to study dated 03/13/16. As before, there is a [id number] left pleural effusion and consolidation at the left lung bas e. Mediastinum: Mediastinal contours appear normal. Heart size is normal. Bones and chest wall: No suspicious bony lesions. Overlying soft tissues appear unremarkable. IMPRESSION: 1. Improved aeration of the right lung. 2. Unchanged left basilar consolidation and pleural effusion. Dictated by: Danica John M.D. on 03/18/2016 at 12:33 Approved by: Danica John M.D. on 03/18/2016 at 12:33
--- NOTE | 2016-03-18 16:15 | PCM.PNMED ---
Subjective Date of Service Mar 18, 2016 Subjective No acute overnight events. Patient continues to have labored breathing with RR in the 30's. She is alternating between nasal cannula, oxy-mask and Trilogy. She denies pain. Exam Vital Signs Vital Sign - Last Date Time Temp Pulse Resp B/P Pulse Ox O2 Delivery O2 Flow Rate FiO2 03/18/16 11:20 73 20 93 OxyMask 3.00 03/18/16 10:11 36.8 151/76 Intake and Output 03/17/16 03/17/16 03/18/16 Cumulative From/Thru 15:00 23:00 07:00 03/13/16 14:55 - 03/18/16 06:51 Intake Total 856 ml 4563 ml Output Total 800 ml 9930 ml Balance 56 ml -5367 ml Intake Oral 856 ml 4553 ml IV Total 10 ml Output Urine Total 800 ml 9930 ml # Voids 3 # Bowel Movements 0 6 Exam General: Sleepy, mild distress from labored breathing HENT: Atraumatic; sclera anicteric; mucus membranes moist Neck: Soft, no JVD Cardiac: Regular rate and rhythm; no murmurs appreciated Respiratory: Decrease breath sounds all gilman; no crackles appreciated; mild bilateral upper wheeze Abdomen: Soft, nontender, nondistended Extremities: No edema upper extremities; trace bilateral lower extremity edema at ankles Psych: Some interaction; limited insight and judgment Skin: Warm and dry Lab and Diagnostics Result Diagram: 03/18/16 0535 03/18/16 0535 X-Rays, CTs and MRIs PROCEDURE: X-RAY CHEST ONE VIEW, PORTABLE ([id number]) IMPRESSION: 1. Appearance is most suggestive of asymmetrical pulmonary edema, improved from last exam. This could also represent resolving pneumonia. 2. Small left pleural effusion may be slightly smaller. Dictated by: Luis A Rivera M.D. on 03/13/2016 at 15:36 Approved by: Luis A Rivera M.D. on 03/13/2016 at 15:36 PROCEDURE: X-RAY CHEST ONE VIEW, PORTABLE ([id number]) IMPRESSION: Interval progression in bilateral, left greater than right, diffuse interstitial and airspace disease are differential considerations include pulmonary interstitial/alveolar edema secondary to CHF and/or diffuse inflammatory process. Recommend followup chest x-ray to ascertain resolution. Dictated by: Francesca Davis M.D. on 03/13/2016 at 21:16 Approved by: Francesca Davis M.D. on 03/13/2016 at 21:16 PROCEDURE: X-RAY CHEST ONE VIEW, PORTABLE ([id number]) INDICATIONS: dyspnea FINDINGS: Surgical changes and devices: Multiple right cervical surgical clips are noted. Lungs and pleura: There is improved aeration of the right lung when compared to study dated 03/13/16. As before, there is a [id number]-[id number] left pleural effusion and consolidation at the left lung base. Mediastinum: Mediastinal contours appear normal. Heart size is normal. Bones and chest wall: No suspicious bony lesions. Overlying soft tissues appear unremarkable. IMPRESSION: 1. Improved aeration of the right lung. 2. Unchanged left basilar consolidation and pleural effusion. Dictated by: Danica John M.D. on 03/18/2016 at 12:33 Approved by: Danica John M.D. on 03/18/2016 at 12:33 12-lead ECG ECG Interpretation: Normal sinus rhythm with ventricular bigeminy, probable anterior infarct old, aside from the bigeminy and the EKG appears unchanged compared to 03/01/2016, there is also LVH with repolarizaton Time: 15:25 Interpreted by: ED physician Additional Diagnostics Interpretation & Diagnostics pH 7.372 pCO2 61 pO2 82.5 cHCO3, - (P) 34.6 cBase (B) 8.4 Assessment & Plan This is a 70-year-old female with past medical history of COPD oxygen dependent at home, chronic tobacco dependency, hypertension, diabetes, coronary artery disease, and recent hospitalization for pulmonary embolism in the end of November. Patient presented to hospital ER via EMS following worsening shortness of breath and progressive weakness. 1. Acute on chronic systolic congestive heart failure, present on admission, resolved -Echocardiogram (10/23/2015): The ejection fraction is estimated to be 35-40%, which is decreased from her prior echo in 03/2015 with estimated EF of 45% -Pro-BNP 16467 -Chest x-ray suggesting bilateral pulmonary edema -Stop Lasix 20 mg IV q6h x 12 doses -Restart home Lasix 20 mg PO daily -Metolazone 5mg x3d completed -Hold Amlodipine -Increase Coreg--> 6.25 bidwm 2. Acute kidney injury, present on admission, active, probable chronic kidney disease at baseline stage III. Ongoing - Possibly secondary to increased diuresis on admission -Cr has been slowly going up since 10/06 when it was 1.03. Her Cr has been consistently >1.5 since 01/06 -Cr 03/18: 1.59 -Etiology multifactorial - Lasix, CHF -Avoid nephrotoxic agents -Monitor with BMP 3. Possible acute exacerbation of COPD, present on admission, active - Solu-Medrol 60 ml q6 h - Repeat chest x-ray: 1. Improved aeration of the right lung. 2. Unchanged left basilar consolidation and pleural effusion. - Respiratory therapy - Continue bronchodilators 4. Elevated troponin of unknown etiology, chronic, present on admission. -Troponin 0.043 on admission -Consistently elevated troponin -Pharm stress test 04/14/15 done showing evidence for a myocardial infarct affecting the inferior/inferoseptal wall without evidence for significant mika- infarct ischemia -No further cardiac workup 5. Diabetes mellitus, non-insulin using, chronic, present on admission, presumed stable -HbA1c 6.2% (01/17/2016) -Constant carbohydrate diet 6. Depression and anxiety, present on admission, ongoing -Continue Sertraline 100 mg PO daily and Lorazepam PRN 7. CAD s/p RCA stent placement, chronic, present on admission, stable -Continue statin (Atorvastatin 40 mg) -Continue isosorbide mononitrate 8. Seizure disorder, chronic, present on admission, presumed stable -Phenytoin level 11.0 -Keppra levels pending -Continue Keppra 1000mg BID and Phenytoin 300mg daily hs 9. Tobacco use disorder, chronic,present on admission - Nicotine patch 21mg daily Dispo: Will DC to [facility]. Palliative care notes indicate goal for comfort as long as possible. GRAPE CUTTER spoke with pt's daughter Jessie on the phone regarding d/c plan. She states that she is happy that SNF is an option and the current plan. She states that her mom has been a little confused lately and that she is too much work for pt's grandson. Jessie Mitchell (daughter) [phone], [phone].Rossy Daniel (daughter) [phone] Consider Palliative consult GI Prophylaxis: Proton Pump Inhibitor VTE Prophylaxis: Sub-Q Heparin (Unfractionated) VTE Mechanical Devices: Intermittant Pneumatic CD Resuscitation Status: DNR/DNI:Do Not Resuscitate/Intubate Time spent 35 minutes Attending Statement Patient seen and examined with resident. Agree with all attached documentation. RAFAEL GONZALEZ DO Mar 18, 2016 11:41 Lars Munoz MD Mar 19, 2016 12:29
[2016-03-18] MEDS: MethylprednisoLONE Sodium Succinate 40 mg/mL Inj IVPUSH SCH ×2 (16:26→21:03)
[2016-03-18] MEDS: Ondansetron 2 mg/mL 2 mL Inj IVPUSH PRN (16:31)
--- NOTE | 2016-03-18 18:14 | NUR ---
O2 sats Pt is on CPOX with goal of O2 88-92% 1-2L supplemental O2. Pt has been unable to maintain O2 sats in goal range through out the day due to frequent position changes and removal of supplemental O2 mask. Pt has been educated on pursed lip breathing, sitting upright for most beneficial breathing. Family and pt needs many reminders for proper technique.
--- NOTE | 2016-03-18 19:29 | NUR ---
resp: pt's oxymask off, sats down in the 60's, slowly came up to 80's. Pt. and family refused blood gases to be drawn, notified.
[2016-03-18] MEDS: Insulin GLARgine 100 Unit/mL Syringe SUBQ SCH (20:54)
[2016-03-19] VITALS (17 sets, daily range): BP systolic 145–166; BP diastolic 62–83; PULSE 60–91; RESP 18–30; O2SAT 70–98
[2016-03-19] MEDS: Phenytoin 100 mg ER Capsule PO SCH ×2 (00:02→21:00)
[2016-03-19] MEDS: Albuterol 2.5 mg/3 mL Inhalation Solution NEB SCH ×7 (00:18→23:49)
[2016-03-19] MEDS: MethylprednisoLONE Sodium Succinate 40 mg/mL Inj IVPUSH SCH ×4 (02:50→20:59)
[2016-03-19 06:04] LABS: BASOPHILS % (AUTO) 0.2 % (0-3); EOSINOPHILS % (AUTO) 0.2 % (0-5); MONOCYTES % (AUTO) 6.7 % (4-12); Mean Corpuscular Volume 82.5 fL (81-100); NEUTROPHILS % (AUTO) 84.5 % (40-74); Platelet Count 139 bil/L (150-400)
--- NOTE | 2016-03-19 07:38 | NUR ---
Fever/Respiration (Assumed care at 2245) Fever 38.1 at night, dyspnea,tachypnea RR30 (per VERIFICATION SPECIALIST doc). Desat to 60s when off O2 for drinking or eating, cyanotic. Tylenol given. Night resident Reilly made aware, no order given. Recheck in 1 hour fever resolved. Titrate O 2 to 4l from 6l, SPO2 88-93% on O2 4l with Trilogy. Moderately decreased lung sounds, crackles at right LL. Alert, orientedx2. Pt and daughter refuses ABG and MD aware per shift report.
[2016-03-19] MEDS: Potassium Chloride 20 mEq SR Tablet PO SCH ×2 (08:00→16:59)
[2016-03-19] MEDS: Pantoprazole 40 mg ER24 Tablet PO SCH (08:07)
[2016-03-19] MEDS: levETIRAcetam 500 mg Tablet PO SCH ×2 (08:08→21:00)
[2016-03-19] MEDS: Insulin LISPRO 300 Unit/3 mL Inj SUBQ SCH ×4 (08:09→22:32)
[2016-03-19] MEDS: Isosorbide Mononitrate 30 mg ER24 Tablet PO SCH (08:09)
--- NOTE | 2016-03-19 11:08 | NUR ---
Social Work Note-Readiness for Discharge D/A: Pt admitted with COPD, CHF on Day #6 of admission. Pt with [facility] MCR, auth received 03/18, however will need to be reviewed prior to d/c. Pt with fever overnight, per multidisciplinary rounds anticipate d/c tomorrow if she remains afebrile. Met with pts daughter [phone] (Rossy Edge) at bedside and answered questions. [facility], she would not want to go to [facility]. Questions answered regarding benefits should the patient in the future progress to hospice/comfort care post discharge. PLAN: Pt to transfer to [facility] when medically stable. Will need to request updated auth on day of d/c. Pt has a home trilogy machine at bedside. L/M for Peggy, to clarify she has a home trilogy. MARK Flores Addendum: 03/19/16 at 1257 by GABBIE WATTERS Pt rents the trilogy through [employer]. Informed [facility], no concerns and they are aware patient will be ready 03/20. Addendum: 03/19/16 at 1607 by GABBIE WATTERS Dtr. Blair requesting a referral to [facility] since she can visit more easily. Discussed with patient who is struggling to make decisions. Message left for Software Verification Engineer to fax clinicals. Pt expected to d/c tomorrow 03/20.
--- NOTE | 2016-03-19 11:19 | NUR ---
Social Work-[facility] Office D/A: Aundrea Ridley ([phone])from [facility] called to get an update regarding patients status. They do not currently have a in-home caregiver for her at this time. Informed Ms. Ridley that the patient continues to meet medical necessity for SNF, with anticipated d/c 03/20. PLAN: CLOTHING DESIGNER to update [facility] worker as listed above on day of discharge. ERIK FloresSW
--- NOTE | 2016-03-19 18:00 | NUR ---
Afebrile Pt reports is feeling much better today, has been afebrile throughout shift. O2 sats being are maintained within the 88-92 % range. Pt is hoping to be D/Cd soon. Family will be coming in soon to stay with family for the night, Call light within reach, will continue to monitor.
[2016-03-19] MEDS: Insulin GLARgine 100 Unit/mL Syringe SUBQ SCH (21:05)
[2016-03-20] VITALS (14 sets, daily range): BP systolic 150–188; BP diastolic 77–97; PULSE 84–105; RESP 18–26; O2SAT 88–98
[2016-03-20] MEDS: LORazepam 0.5 mg Tablet PO PRN ×4 (01:41→21:01)
--- NOTE | 2016-03-20 01:41 | NUR ---
Behavior Pt in a confused state, says "Take me to my room" continually, thinks she is in a hotel. Attempts at calming the pt verbally and reorienting does not work. Pt continues to shout and starts to pull off Cpox. Pt requests for CPAP to be put on. RT called to connect Trilogy, does not calm pt. Cpox replaced and pulled off by pt. PRN PO dose Ativan given. No noticeable affect after 30 min, pt becoming more intolerant of care and attempts at calming and reorienting. pagekaylyn, IV dose Ativan prescribed and given. No change in pt condition. Pt calling out for her daughter. Daughter contacted, spoke with pt in attempt to calm. Pt continues to shout and pull off Cpox, O2 NC, and tug at IV. Approx at 0330 pt starts to calm down, requests something to eat. Pt given toast with Peanut butter, and resumes appropriate behavior. NC in place with 2L O2. Pt in bed, awake.
[2016-03-20] MEDS: MethylprednisoLONE Sodium Succinate 40 mg/mL Inj IVPUSH SCH ×5 (02:45→21:01)
[2016-03-20] MEDS: Albuterol 2.5 mg/3 mL Inhalation Solution NEB SCH ×6 (04:29→23:23)
[2016-03-20] MEDS: Insulin LISPRO 300 Unit/3 mL Inj SUBQ SCH ×4 (07:52→22:00)
[2016-03-20] MEDS: Pantoprazole 40 mg ER24 Tablet PO SCH (07:53)
[2016-03-20] MEDS: levETIRAcetam 500 mg Tablet PO SCH ×2 (07:53→21:00)
[2016-03-20] MEDS: Isosorbide Mononitrate 30 mg ER24 Tablet PO SCH (07:53)
[2016-03-20] MEDS: Potassium Chloride 20 mEq SR Tablet PO SCH ×2 (07:57→17:30)
[2016-03-20 09:11] LABS: BASOPHILS % (AUTO) 0 % (0-3); EOSINOPHILS % (AUTO) 0 % (0-5); MONOCYTES % (AUTO) 6.8 % (4-12); NEUTROPHILS % (AUTO) 82.8 % (40-74); Platelet Count 146 bil/L (150-400)
--- NOTE | 2016-03-20 10:39 | NUR ---
Called and spoke with Bridget in admissions at [facility] and she has female beds open, faxed referral to [phone]. Patient needs updated PT notes to have [facility] review for authorization. Updated FUEL CELL REPAIRER
--- NOTE | 2016-03-20 13:37 | NUR ---
Social Work: Continued d/c planning Data: Pt is on day 7 of hospitalization. EMR reviewed, pt discussed in rounds. pt likely ready for d/c today. SYSTEM DISPATCHER notified UR specialist. An updated PT evaluation is required in order for [facility] to consider authorization for SNF stay. SYSTEM DISPATCHER requested PT see pt this morning, pt declined PT. Kimberlee Oliver from [facility] stopped by to meet with pt. Pt was given a medication this morning which is considered a chemical restraint and [facility] cannot accept pt until 24 hours have past since taking the medication. SYSTEM DISPATCHER updated MD of this. PT states they will attempt to meet with pt this afternoon if they are more agreeable. SYSTEM DISPATCHER will continue to follow. Assessment: Pt with caregiving at baseline. Plan: Pt will likely d/c to SNF when medically stable pending [facility] authorization and pt's agreeability to PT assessment. [facility] has accepted pt, [facility] is reviewing. SYSTEM DISPATCHER will continuw to follow. MELVI Almonte
[2016-03-20] MEDS: Ondansetron 2 mg/mL 2 mL Inj IVPUSH PRN (15:30)
--- NOTE | 2016-03-20 16:09 | PCM.PNMED ---
Subjective Date of Service Mar 20, 2016 Subjective Patient had an episode of confusion and aggressive behavior in the middle of the night Patient was saying "Take me to my room" continually, thinking she is in a hotel. She was shouting and trying to pull off Cpox. PRN PO dose Ativan was given w/o noticeable affect after 30 min, so IV dose Ativan was administered after which she calmed down and fell asleep. During rounds the patient remained asleep most of the time. When she was able to communicate she stated she is ok, and was back to her baseline. Exam Vital Signs Vital Sign - Last Date Time Temp Pulse Resp B/P Pulse Ox O2 Delivery O2 Flow Rate FiO2 03/20/16 13:55 36.4 84 18 164/77 94 Nasal Cannula 3.00 Intake and Output 03/19/16 03/19/16 03/20/16 Cumulative From/Thru 15:00 23:00 07:00 03/13/16 14:55 - 03/20/16 06:48 Intake Total 1076 ml 240 ml 6697 ml Output Total 500 ml 150 ml 42739 ml Balance 576 ml 90 ml -4158 ml Intake Oral 1076 ml 240 ml 6687 ml IV Total 10 ml Output Urine Total 500 ml 150 ml 87527 ml # Voids 3 9 # Bowel Movements 1 11 Exam General: Sleepy, labored breathing Neck: Soft, no JVD Cardiac: Regular rate and rhythm; no murmurs appreciated Respiratory: Decrease breath sounds all gilman; no crackles appreciated; mild bilateral upper wheeze Abdomen: Soft, nontender, nondistended Extremities: No edema upper extremities; trace bilateral lower extremity edema at ankles Psych: Some interaction; limited insight and judgment Skin: Warm and dry Lab and Diagnostics Result Diagram: 03/20/16 0858 03/20/16 0858 X-Rays, CTs and MRIs PROCEDURE: X-RAY CHEST ONE VIEW, PORTABLE ([id number]) IMPRESSION: 1. Appearance is most suggestive of asymmetrical pulmonary edema, improved from last exam. This could also represent resolving pneumonia. 2. Small left pleural effusion may be slightly smaller. Dictated by: Luis A Rivera M.D. on 03/13/2016 at 15:36 Approved by: Luis A Rivera M.D. on 03/13/2016 at 15:36 PROCEDURE: X-RAY CHEST ONE VIEW, PORTABLE ([id number]) IMPRESSION: Interval progression in bilateral, left greater than right, diffuse interstitial and airspace disease are differential considerations include pulmonary interstitial/alveolar edema secondary to CHF and/or diffuse inflammatory process. Recommend followup chest x-ray to ascertain resolution. Dictated by: Francesca Davis M.D. on 03/13/2016 at 21:16 Approved by: Francesca Davis M.D. on 03/13/2016 at 21:16 PROCEDURE: X-RAY CHEST ONE VIEW, PORTABLE ([id number]) INDICATIONS: dyspnea FINDINGS: Surgical changes and devices: Multiple right cervical surgical clips are noted. Lungs and pleura: There is improved aeration of the right lung when compared to study dated 03/13/16. As before, there is a [id number] left pleural effusion and consolidation at the left lung base. Mediastinum: Mediastinal contours appear normal. Heart size is normal. Bones and chest wall: No suspicious bony lesions. Overlying soft tissues appear unremarkable. IMPRESSION: 1. Improved aeration of the right lung. 2. Unchanged left basilar consolidation and pleural effusion. Dictated by: Danica John M.D. on 03/18/2016 at 12:33 Approved by: Danica John M.D. on 03/18/2016 at 12:33 12-lead ECG ECG Interpretation: Normal sinus rhythm with ventricular bigeminy, probable anterior infarct old, aside from the bigeminy and the EKG appears unchanged compared to 03/01/2016, there is also LVH with repolarizaton Time: 15:25 Interpreted by: ED physician Additional Diagnostics Interpretation & Diagnostics pH 7.372 pCO2 61 pO2 82.5 cHCO3, - (P) 34.6 cBase (B) 8.4 Assessment & Plan This is a 70-year-old female with past medical history of COPD oxygen dependent at home, chronic tobacco dependency, hypertension, diabetes, coronary artery disease, and recent hospitalization for pulmonary embolism in the end of November. Patient presented to hospital ER via EMS following worsening shortness of breath and progressive weakness. 1. Acute on chronic systolic congestive heart failure, present on admission, resolved -Echocardiogram (10/23/2015): The ejection fraction is estimated to be 35-40%, which is decreased from her prior echo in 03/2015 with estimated EF of 45% -Pro-BNP 68691 -Chest x-ray suggesting bilateral pulmonary edema -Stop Lasix 20 mg IV q6h x 12 doses -Restart home Lasix 20 mg PO daily -Metolazone 5mg x3d completed -Hold Amlodipine -Increase Coreg--> 6.25 bidwm 2. Acute kidney injury, present on admission, active, probable chronic kidney disease at baseline stage III. Ongoing - Possibly secondary to increased diuresis on admission -Cr has been slowly going up since 10/06 when it was 1.03. Her Cr has been consistently >1.5 since 01/06 -Cr 1.72 on 03/20/12; Cr 1.59 previously -Improved K of 4.4 -Etiology multifactorial - Lasix, CHF -Avoid nephrotoxic agents -Monitor with BMP 3. Possible acute exacerbation of COPD, present on admission, active - Solu-Medrol 60 ml q6 h - Repeat chest x-ray: 1. Improved aeration of the right lung. 2. Unchanged left basilar consolidation and pleural effusion. - Respiratory therapy - Continue bronchodilators 4. Elevated troponin of unknown etiology, chronic, present on admission. -Troponin 0.043 on admission -Consistently elevated troponin -Pharm stress test 04/14/15 done showing evidence for a myocardial infarct affecting the inferior/inferoseptal wall without evidence for significant mika- infarct ischemia -No further cardiac workup 5. Diabetes mellitus, non-insulin using, chronic, present on admission, presumed stable -HbA1c 6.2% (01/17/2016) -Constant carbohydrate diet 6. Depression and anxiety, present on admission, ongoing -Continue Sertraline 100 mg PO daily and Lorazepam PRN 7. CAD s/p RCA stent placement, chronic, present on admission, stable -Continue statin (Atorvastatin 40 mg) -Continue isosorbide mononitrate 8. Seizure disorder, chronic, present on admission, presumed stable -Phenytoin level 11.0 -Keppra levels pending -Continue Keppra 1000mg BID and Phenytoin 300mg daily hs 9. Tobacco use disorder, chronic,present on admission - Nicotine patch 21mg daily Dispo: Will DC to [facility]. Previous Palliative care notes indicate goal for comfort as long as possible. CELL PREPARER spoke with pt's daughter Jessie on the phone regarding d/c plan. She states that she is happy that SNF is an option and the current plan. She states that her mom has been a little confused lately and that she is too much work for pt's grandson. Jessie Mitchell (daughter) [phone], [phone].Rossy Daniel (daughter) [phone] GI Prophylaxis: Proton Pump Inhibitor VTE Prophylaxis: Sub-Q Heparin (Unfractionated) VTE Mechanical Devices: Intermittant Pneumatic CD Resuscitation Status: DNR/DNI:Do Not Resuscitate/Intubate Attending Statement I reviewed this patients chart, discussed the plan of care with the resident and examined the patient. I agree with the above physical exam and assessment and plan. RAFAEL GONZALEZ DO Mar 20, 2016 15:58 Yaw Bridges DO Mar 20, 2016 17:47
--- NOTE | 2016-03-20 16:09 | PCM.PNMED ---
Subjective Date of Service Mar 19, 2016 Subjective Patient with fever overnight, denies pain. Patient looks much better today, she is sitting in the bed enjoying her breakfast. Her breezing has improved, at least when she is upright. Her daughter is at bedside. Exam Vital Signs Vital Sign - Last Date Time Temp Pulse Resp B/P Pulse Ox O2 Delivery O2 Flow Rate FiO2 03/19/16 13:50 70 03/19/16 13:36 36.7 20 146/62 88 Nasal Cannula 3.00 Intake and Output 03/18/16 03/18/16 03/19/16 Cumulative From/Thru 15:00 23:00 07:00 03/13/16 14:55 - 03/19/16 06:48 Intake Total 0 ml 400 ml 418 ml 5381 ml Output Total 225 ml 50 ml 05194 ml Balance 0 ml 175 ml 368 ml -4824 ml Intake Oral 0 ml 400 ml 418 ml 5371 ml IV Total 10 ml Output Urine Total 225 ml 50 ml 44243 ml # Voids 1 2 6 # Bowel Movements 2 2 0 10 Lab and Diagnostics Result Diagram: 03/19/16 0515 03/19/16 0515 X-Rays, CTs and MRIs PROCEDURE: X-RAY CHEST ONE VIEW, PORTABLE ([id number]) IMPRESSION: 1. Appearance is most suggestive of asymmetrical pulmonary edema, improved from last exam. This could also represent resolving pneumonia. 2. Small left pleural effusion may be slightly smaller. Dictated by: Luis A Rivera M.D. on 03/13/2016 at 15:36 Approved by: Luis A Rivera M.D. on 03/13/2016 at 15:36 PROCEDURE: X-RAY CHEST ONE VIEW, PORTABLE ([id number]) IMPRESSION: Interval progression in bilateral, left greater than right, diffuse interstitial and airspace disease are differential considerations include pulmonary interstitial/alveolar edema secondary to CHF and/or diffuse inflammatory process. Recommend followup chest x-ray to ascertain resolution. Dictated by: Francesca Davis M.D. on 03/13/2016 at 21:16 Approved by: Francesca Davis M.D. on 03/13/2016 at 21:16 PROCEDURE: X-RAY CHEST ONE VIEW, PORTABLE ([id number]) INDICATIONS: dyspnea FINDINGS: Surgical changes and devices: Multiple right cervical surgical clips are noted. Lungs and pleura: There is improved aeration of the right lung when compared to study dated 03/13/16. As before, there is a [id number] left pleural effusion and consolidation at the left lung base. Mediastinum: Mediastinal contours appear normal. Heart size is normal. Bones and chest wall: No suspicious bony lesions. Overlying soft tissues appear unremarkable. IMPRESSION: 1. Improved aeration of the right lung. 2. Unchanged left basilar consolidation and pleural effusion. Dictated by: Danica John M.D. on 03/18/2016 at 12:33 Approved by: Danica John M.D. on 03/18/2016 at 12:33 12-lead ECG ECG Interpretation: Normal sinus rhythm with ventricular bigeminy, probable anterior infarct old, aside from the bigeminy and the EKG appears unchanged compared to 03/01/2016, there is also LVH with repolarizaton Time: 15:25 Interpreted by: ED physician Additional Diagnostics Interpretation & Diagnostics pH 7.372 pCO2 61 pO2 82.5 cHCO3, - (P) 34.6 cBase (B) 8.4 Assessment & Plan This is a 70-year-old female with past medical history of COPD oxygen dependent at home, chronic tobacco dependency, hypertension, diabetes, coronary artery disease, and recent hospitalization for pulmonary embolism in the end of November. Patient presented to hospital ER via EMS following worsening shortness of breath and progressive weakness. 1. Acute on chronic systolic congestive heart failure, present on admission, resolved -Echocardiogram (10/23/2015): The ejection fraction is estimated to be 35-40%, which is decreased from her prior echo in 03/2015 with estimated EF of 45% -Pro-BNP 04554 -Chest x-ray suggesting bilateral pulmonary edema -Stop Lasix 20 mg IV q6h x 12 doses -Restart home Lasix 20 mg PO daily -Metolazone 5mg x3d completed -Hold Amlodipine -Increase Coreg--> 6.25 bidwm 2. Acute kidney injury, present on admission, active, probable chronic kidney disease at baseline stage III. Ongoing - Possibly secondary to increased diuresis on admission -Cr has been slowly going up since 10/06 when it was 1.03. Her Cr has been consistently >1.5 since 01/06 -Cr 03/18: 1.59 -Etiology multifactorial - Lasix, CHF -Avoid nephrotoxic agents -Monitor with BMP 3. Possible acute exacerbation of COPD, present on admission, active - Solu-Medrol 60 ml q6 h - Repeat chest x-ray: 1. Improved aeration of the right lung. 2. Unchanged left basilar consolidation and pleural effusion. - Respiratory therapy - Continue bronchodilators 4. Elevated troponin of unknown etiology, chronic, present on admission. -Troponin 0.043 on admission -Consistently elevated troponin -Pharm stress test 04/14/15 done showing evidence for a myocardial infarct affecting the inferior/inferoseptal wall without evidence for significant mika- infarct ischemia -No further cardiac workup 5. Diabetes mellitus, non-insulin using, chronic, present on admission, presumed stable -HbA1c 6.2% (01/17/2016) -Constant carbohydrate diet 6. Depression and anxiety, present on admission, ongoing -Continue Sertraline 100 mg PO daily and Lorazepam PRN 7. CAD s/p RCA stent placement, chronic, present on admission, stable -Continue statin (Atorvastatin 40 mg) -Continue isosorbide mononitrate 8. Seizure disorder, chronic, present on admission, presumed stable -Phenytoin level 11.0 -Keppra levels pending -Continue Keppra 1000mg BID and Phenytoin 300mg daily hs 9. Tobacco use disorder, chronic,present on admission - Nicotine patch 21mg daily Dispo: Will DC to [facility]. Palliative care notes indicate goal for comfort as long as possible. HVAC R TECH spoke with pt's daughter Jessie on the phone regarding d/c plan. She states that she is happy that SNF is an option and the current plan. She states that her mom has been a little confused lately and that she is too much work for pt's grandson. Jessie Mitchell (daughter) [phone], [phone].Rossy Croftu (daughter) [phone] Consider Palliative consult GI Prophylaxis: Proton Pump Inhibitor VTE Prophylaxis: Sub-Q Heparin (Unfractionated) VTE Mechanical Devices: Intermittant Pneumatic CD Resuscitation Status: DNR/DNI:Do Not Resuscitate/Intubate RAFAEL GONZALEZ DO Mar 19, 2016 14:12 Yaw Bridges DO Mar 20, 2016 17:48 RAFAEL GONZALEZ DO Mar 19, 2016 14:12 Yaw Brigdes DO Mar 20, 2016 17:48
[2016-03-20] MEDS: Insulin GLARgine 100 Unit/mL Syringe SUBQ SCH (21:00)
[2016-03-20] MEDS: Phenytoin 100 mg ER Capsule PO SCH (21:00)
[2016-03-21] VITALS (11 sets, daily range): BP systolic 155–174; BP diastolic 61–82; PULSE 76–114; RESP 20–26; O2SAT 90–99
[2016-03-21] MEDS: MethylprednisoLONE Sodium Succinate 40 mg/mL Inj IVPUSH SCH ×4 (03:30→21:17)
[2016-03-21] MEDS: Albuterol 2.5 mg/3 mL Inhalation Solution NEB SCH ×6 (04:30→20:04)
--- NOTE | 2016-03-21 04:55 | NUR ---
Mentation Alert and confused all shift. Difficult to redirect and orient. Frequently removes oxymask resulting in hypoxia, restlessness and further confusion. Significant generalized weakness noted when transferring to and from [facility] with 2PA. Bedrest remainder of shift for patient safety. Rails up x3, skid proof socks on, call light in reach, pressure alarm on and frequent rounding to ensure patient safety.
[2016-03-21 06:01] LABS: BASOPHILS % (AUTO) 0.1 % (0-3); EOSINOPHILS % (AUTO) 0 % (0-5)
[2016-03-21 06:16] LABS: MONOCYTES % (AUTO) 9.7 % (4-12); Mean Corpuscular Hemoglobin 22.5 pg (27.0-35.0); Mean Corpuscular Volume 83.4 fL (81-100); NEUTROPHILS % (AUTO) 72.8 % (40-74); Platelet Count 158 bil/L (150-400)
[2016-03-21] MEDS: LORazepam 0.5 mg Tablet PO PRN ×3 (07:37→21:17)
[2016-03-21] MEDS: levETIRAcetam 500 mg Tablet PO SCH ×2 (07:37→21:17)
[2016-03-21] MEDS: Pantoprazole 40 mg ER24 Tablet PO SCH (07:38)
[2016-03-21] MEDS: Isosorbide Mononitrate 30 mg ER24 Tablet PO SCH (07:38)
[2016-03-21] MEDS: Insulin LISPRO 300 Unit/3 mL Inj SUBQ SCH ×4 (07:38→22:00)
[2016-03-21] MEDS: Potassium Chloride 20 mEq SR Tablet PO SCH ×2 (07:43→17:33)
--- NOTE | 2016-03-21 12:18 | NUR ---
Social Work: Continued d/c planning Data: Pt is on day 8 of hospitalization. EMR reviewed, pt discussed in rounds. MD states pt likely to d/c today. HOOP PUNCHER spoke with pt's daughter [place] on the phone and then in person in pt's room. Pt and daughter spoke with HOOP PUNCHER regarding SNF and PT evaluation today. PT will attempt to work with pt this afternoon. If pt continues to decline, HOOP PUNCHER requested that MD consider getting Palliative involved to discuss goals of care. HOOP PUNCHER will continue to follow. Assessment: Pt with caregiving at baseline. Plan: Pt will d/c likely to SNF pending participation in PT or to meet with Palliative to discuss goals of care. HOOP PUNCHER will continue to follow. MELVI Almonte
--- NOTE | 2016-03-21 13:59 | NUR ---
NUTRITION ASSESSMENT ASSESS: 70YO F admit with acute on chronic CHF with bilateral pulmonary edema. Acute kidney injury--noted pobably CKD stage III, poss exacerbation COPD. RN notes pt with confusion/weakness, trouble with diet texture. ST eval ordered/pending. PMHx: COPD on O2,HTN,DM,CAD,PE DIET: Diabetic/Heart Healthy. PO variable refusal-100% LABS: Reviewed. Glu 163, Alb 3.0, Cr 1.51, BUN 49, K+5.3 MEDICATIONS: Reviewed. GI symptoms / stool: last BM 03/21 Skin Integrity: No issues reported. ANTHROPOMETRICS: Current Wt: 50.5 kg BMI: 21.7 kg/m2, admit wt 53.18kg IBW: 45.5kg ESTIMATED NEEDS (COPD): Calories: 4746-6282 kcal (30 - 35 kcal / kg BW) Protein: 65 - 80 g protein (1.2 - 1.5 g / kg BW) Fluid: 2782-6806 ml (25-30 ml / kg BW) NUTRITION DIAGNOSIS: 1) Chew/swallowing difficulty related to confusion/weakness as evidenced by RN reports, ST eval ordered. INTERVENTION: 1) Monitor for ST eval. MONITOR/EVALUATE: Diet advance / texture tolerance, labs, . Follow up per moderate nutrition risk guidelines
--- NOTE | 2016-03-21 15:33 | PCM.PNMED ---
Subjective Date of Service Mar 21, 2016 Subjective Patient is at her baseline. She denies PT evaluation hence can not be transferred to SNF. Denies SNF, wishes to go home. Patient with decision making capacity. At this point we will go ahead and request Palliative Care consult. Exam Vital Signs Vital Sign - Last Date Time Temp Pulse Resp B/P Pulse Ox O2 Delivery O2 Flow Rate FiO2 03/21/16 13:18 36.4 89 24 165/77 96 Nasal Cannula 3.00 Intake and Output 03/20/16 03/20/16 03/21/16 Cumulative From/Thru 15:00 23:00 07:00 03/13/16 14:55 - 03/21/16 06:24 Intake Total 470 ml 200 ml 7367 ml Output Total 78541 ml Balance 470 ml 200 ml -3488 ml Intake Oral 470 ml 200 ml 7357 ml IV Total 0 ml 10 ml Output Urine Total 58269 ml # Voids 3 3 15 # Bowel Movements 3 1 15 Exam General: Sleepy, labored breathing Neck: Soft, no JVD Cardiac: Regular rate and rhythm; no murmurs appreciated Respiratory: Decrease breath sounds all gilman; no crackles appreciated; mild bilateral upper wheeze Abdomen: Soft, nontender, nondistended Extremities: No edema upper extremities; trace bilateral lower extremity edema at ankles Skin: Warm and dry Lab and Diagnostics Result Diagram: 03/21/16 0505 03/21/16 0505 X-Rays, CTs and MRIs PROCEDURE: X-RAY CHEST ONE VIEW, PORTABLE ([id number]) IMPRESSION: 1. Appearance is most suggestive of asymmetrical pulmonary edema, improved from last exam. This could also represent resolving pneumonia. 2. Small left pleural effusion may be slightly smaller. Dictated by: Luis A Rivera M.D. on 03/13/2016 at 15:36 Approved by: Luis A Rivera M.D. on 03/13/2016 at 15:36 PROCEDURE: X-RAY CHEST ONE VIEW, PORTABLE ([id number]) IMPRESSION: Interval progression in bilateral, left greater than right, diffuse interstitial and airspace disease are differential considerations include pulmonary interstitial/alveolar edema secondary to CHF and/or diffuse inflammatory process. Recommend followup chest x-ray to ascertain resolution. Dictated by: Francesca Davis M.D. on 03/13/2016 at 21:16 Approved by: Francesca Davis M.D. on 03/13/2016 at 21:16 PROCEDURE: X-RAY CHEST ONE VIEW, PORTABLE ([id number]) INDICATIONS: dyspnea FINDINGS: Surgical changes and devices: Multiple right cervical surgical clips are noted. Lungs and pleura: There is improved aeration of the right lung when compared to study dated 03/13/16. As before, there is a [id number] left pleural effusion and consolidation at the left lung base. Mediastinum: Mediastinal contours appear normal. Heart size is normal. Bones and chest wall: No suspicious bony lesions. Overlying soft tissues appear unremarkable. IMPRESSION: 1. Improved aeration of the right lung. 2. Unchanged left basilar consolidation and pleural effusion. Dictated by: Danica John M.D. on 03/18/2016 at 12:33 Approved by: Danica John M.D. on 03/18/2016 at 12:33 12-lead ECG ECG Interpretation: Normal sinus rhythm with ventricular bigeminy, probable anterior infarct old, aside from the bigeminy and the EKG appears unchanged compared to 03/01/2016, there is also LVH with repolarizaton Time: 15:25 Interpreted by: ED physician Additional Diagnostics Interpretation & Diagnostics pH 7.372 pCO2 61 pO2 82.5 cHCO3, - (P) 34.6 cBase (B) 8.4 Assessment & Plan This is a 70-year-old female with past medical history of COPD oxygen dependent at home, chronic tobacco dependency, hypertension, diabetes, coronary artery disease, and recent hospitalization for pulmonary embolism in the end of November. Patient presented to hospital ER via EMS following worsening shortness of breath and progressive weakness. 1. Acute on chronic systolic congestive heart failure, present on admission, resolved -Echocardiogram (10/23/2015): The ejection fraction is estimated to be 35-40%, which is decreased from her prior echo in 03/2015 with estimated EF of 45% -Pro-BNP 58058 -Chest x-ray suggesting bilateral pulmonary edema -Stop Lasix 20 mg IV q6h x 12 doses -Restart home Lasix 20 mg PO daily -Metolazone 5mg x3d completed -Hold Amlodipine -Increase Coreg--> 6.25 bidwm 2. Acute kidney injury, present on admission, active, probable chronic kidney disease at baseline stage III. Ongoing - Possibly secondary to increased diuresis on admission -Cr has been slowly going up since 10/06 when it was 1.03. Her Cr has been consistently >1.5 since 01/06 -Cr 03/21: 1.51 -Etiology multifactorial - Lasix, CHF -Avoid nephrotoxic agents -Monitor with BMP 3. Possible acute exacerbation of COPD, present on admission, active - Solu-Medrol 60 ml q6 h - Repeat chest x-ray: 1. Improved aeration of the right lung. 2. Unchanged left basilar consolidation and pleural effusion. - Respiratory therapy - Continue bronchodilators 4. Elevated troponin of unknown etiology, chronic, present on admission. -Troponin 0.043 on admission -Consistently elevated troponin -Pharm stress test 04/14/15 done showing evidence for a myocardial infarct affecting the inferior/inferoseptal wall without evidence for significant mika- infarct ischemia -No further cardiac workup 5. Diabetes mellitus, non-insulin using, chronic, present on admission, presumed stable -HbA1c 6.2% (01/17/2016) -Constant carbohydrate diet 6. Depression and anxiety, present on admission, ongoing -Continue Sertraline 100 mg PO daily and Lorazepam PRN 7. CAD s/p RCA stent placement, chronic, present on admission, stable -Continue statin (Atorvastatin 40 mg) -Continue isosorbide mononitrate 8. Seizure disorder, chronic, present on admission, presumed stable -Phenytoin level 11.0 -Keppra levels pending -Continue Keppra 1000mg BID and Phenytoin 300mg daily hs 9. Tobacco use disorder, chronic,present on admission - Nicotine patch 21mg daily Dispo: Will DC to [facility]. Palliative care notes indicate goal for comfort as long as possible. ANALYSIS ANALYST spoke with pt's daughter Jessie on the phone regarding d/c plan. She states that she is happy that SNF is an option and the current plan. She states that her mom has been a little confused lately and that she is too much work for pt's grandson. Jessie Mitchell (daughter) [phone], [phone].Rossy Daniel (daughter) [phone] Update: Patient denies PT evaluation and can not be transferred to SNF. Patient also denies SNF. We requested Palliative consult. GI Prophylaxis: Proton Pump Inhibitor VTE Prophylaxis: Sub-Q Heparin (Unfractionated) VTE Mechanical Devices: Intermittant Pneumatic CD Resuscitation Status: DNR/DNI:Do Not Resuscitate/Intubate Attending Statement I reviewed this patients chart, discussed the plan of care with the resident and examined the patient. I agree with the above physical exam and assessment and plan. RAFAEL GONZALEZ DO Mar 21, 2016 15:33 Yaw Bridges DO Mar 21, 2016 16:34
--- NOTE | 2016-03-21 18:34 | NUR ---
mentation patient slept most of shift. Less confusion, agitation and impulsiveness than on nightman. Pt tolerated PO medications, food and was cooperative with care. Pt was often rousable only to sternal rub but once awaken follow commands. Pt did not attempt to get oob during shift and was incontinent of urine. pt sated between 88-95% on 2L NC and would desat to 70-80s when noncompliant with NC
[2016-03-21] MEDS: Phenytoin 100 mg ER Capsule PO SCH (21:17)
[2016-03-21] MEDS: Insulin GLARgine 100 Unit/mL Syringe SUBQ SCH (23:12)
[2016-03-22] VITALS (12 sets, daily range): BP systolic 157–170; BP diastolic 74–85; PULSE 62–87; RESP 22–26; O2SAT 92–100
[2016-03-22] MEDS: LORazepam 0.5 mg Tablet PO PRN ×5 (00:03→21:53)
[2016-03-22] MEDS: Albuterol 2.5 mg/3 mL Inhalation Solution NEB SCH ×6 (00:30→21:24)
[2016-03-22] MEDS ORDERED: LORazepam 0.5 mg Tablet PO ONE (01:10)
[2016-03-22] MEDS: MethylprednisoLONE Sodium Succinate 40 mg/mL Inj IVPUSH SCH (02:30)
--- NOTE | 2016-03-22 07:31 | NUR ---
Mentation Continues to be confused and agitated throughout shift with no significant changes from previous day. Prn PO Ativan not effective despite contacting MD and giving extra dose.
[2016-03-22] MEDS: Insulin LISPRO 300 Unit/3 mL Inj SUBQ SCH ×4 (08:00→21:44)
--- NOTE | 2016-03-22 10:34 | NUR ---
Social Work: Continued d/c planning Data: Pt is on day 9 of hospitalization. WIRE HANGER called Aundrea Baker, , [facility] WIRE HANGER for pt. There was no answer, WIRE HANGER left a message requesting she call WIRE HANGER back with verification of pt's Medicaid status. WIRE HANGER will continue to follow. Assessment: Pt who has caregiving at baseline. Plan: Pt will meet with palliative today to discuss goals of care. WIRE HANGER will follow up after that. Possible plans would be home with hospice, or SNF possibly private pay if [facility] does not authorize. WIRE HANGER will await information for Medicaid status. WIRE HANGER will continue to follow. MELVI Almonte
[2016-03-22] MEDS: Potassium Chloride 20 mEq SR Tablet PO SCH ×2 (10:50→16:34)
[2016-03-22] MEDS: levETIRAcetam 500 mg Tablet PO SCH ×2 (10:50→21:47)
[2016-03-22] MEDS: Isosorbide Mononitrate 30 mg ER24 Tablet PO SCH (10:50)
[2016-03-22] MEDS: Pantoprazole 40 mg ER24 Tablet PO SCH (10:50)
--- NOTE | 2016-03-22 10:56 | NUR ---
Palliative Care Palliative Care received order from Dr John Mesa 03/21/16 (late in day) to assist with goals of care. Patient is a 70 year old female with history of COPD oxygen dependent at home, chronic tobacco dependency, hypertension, diabetes, coronary artery disease, and recent hospitalization for pulmonary embolism. She was admitted 03/13/16 due to worsening shortness of breath and progressive weakness. Palliative Care team saw patient multiple times during 11/2015 and 12/2015 admissions. Jessie Mitchell (daughter) [phone], Rossy Daniel (daughter) [phone] Palliative Care to follow. Ghada Meng
--- NOTE | 2016-03-22 11:08 | NUR ---
Evaluation completed. Rec: Tonsina/Pureed. Medication whole in pureed. 1:1 feed. NURSE RESEARCH to follow Please go to "Notes" then click on "Assessments and Notes" (bottom left corner of screen). Then select appropriate discipline tab on top of screen.
[2016-03-22] MEDS: predniSONE 20 mg Tablet PO SCH (11:10)
--- NOTE | 2016-03-22 14:47 | PCM.PNMED ---
Subjective Date of Service Mar 22, 2016 Subjective Patient was agitated and confused throughout shift. Prn PO Ativan not effective , patient received an extra dose. Patient was sleepy in the morning and difficult to arouse. Later palliative care visited and had a conversation regarding goals of care with the patient and her daughter. Exam Vital Signs Vital Sign - Last Date Time Temp Pulse Resp B/P Pulse Ox O2 Delivery O2 Flow Rate FiO2 03/22/16 13:28 36.9 71 26 159/82 95 Nasal Cannula 2.50 Intake and Output 03/21/16 03/21/16 03/22/16 Cumulative From/Thru 15:00 23:00 07:00 03/13/16 14:55 - 03/22/16 07:00 Intake Total 872 ml 200 ml 8439 ml Output Total 43389 ml Balance 872 ml 200 ml -2416 ml Intake Oral 872 ml 200 ml 8429 ml IV Total 10 ml Output Urine Total 75752 ml # Voids 3 2 20 # Bowel Movements 0 0 15 Exam General: Sleepy, labored breathing Cardiac: Regular rate and rhythm; no murmurs appreciated Respiratory: Decrease breath sounds all gilman; mild bilateral upper wheeze Abdomen: Soft, nontender, nondistended Extremities: No edema Skin: Warm and dry Lab and Diagnostics Result Diagram: 03/21/16 0505 03/22/16 0845 X-Rays, CTs and MRIs PROCEDURE: X-RAY CHEST ONE VIEW, PORTABLE ([id number]) IMPRESSION: 1. Appearance is most suggestive of asymmetrical pulmonary edema, improved from last exam. This could also represent resolving pneumonia. 2. Small left pleural effusion may be slightly smaller. Dictated by: Luis A Rivera M.D. on 03/13/2016 at 15:36 Approved by: Luis A Rivera M.D. on 03/13/2016 at 15:36 PROCEDURE: X-RAY CHEST ONE VIEW, PORTABLE ([id number]) IMPRESSION: Interval progression in bilateral, left greater than right, diffuse interstitial and airspace disease are differential considerations include pulmonary interstitial/alveolar edema secondary to CHF and/or diffuse inflammatory process. Recommend followup chest x-ray to ascertain resolution. Dictated by: Francesca Davis M.D. on 03/13/2016 at 21:16 Approved by: Francesca Davis M.D. on 03/13/2016 at 21:16 PROCEDURE: X-RAY CHEST ONE VIEW, PORTABLE ([id number]) INDICATIONS: dyspnea FINDINGS: Surgical changes and devices: Multiple right cervical surgical clips are noted. Lungs and pleura: There is improved aeration of the right lung when compared to study dated 03/13/16. As before, there is a [id number] left pleural effusion and consolidation at the left lung base. Mediastinum: Mediastinal contours appear normal. Heart size is normal. Bones and chest wall: No suspicious bony lesions. Overlying soft tissues appear unremarkable. IMPRESSION: 1. Improved aeration of the right lung. 2. Unchanged left basilar consolidation and pleural effusion. Dictated by: Danica John M.D. on 03/18/2016 at 12:33 Approved by: Danica John M.D. on 03/18/2016 at 12:33 12-lead ECG ECG Interpretation: Normal sinus rhythm with ventricular bigeminy, probable anterior infarct old, aside from the bigeminy and the EKG appears unchanged compared to 03/01/2016, there is also LVH with repolarizaton Time: 15:25 Interpreted by: ED physician Additional Diagnostics Interpretation & Diagnostics pH 7.372 pCO2 61 pO2 82.5 cHCO3, - (P) 34.6 cBase (B) 8.4 Assessment & Plan This is a 70-year-old female with past medical history of COPD oxygen dependent at home, chronic tobacco dependency, hypertension, diabetes, coronary artery disease, and recent hospitalization for pulmonary embolism in the end of November. Patient presented to hospital ER via EMS following worsening shortness of breath and progressive weakness. 1. Acute on chronic systolic congestive heart failure, present on admission, resolved -Echocardiogram (10/23/2015): The ejection fraction is estimated to be 35-40%, which is decreased from her prior echo in 03/2015 with estimated EF of 45% -Pro-BNP 44392 -Chest x-ray suggesting bilateral pulmonary edema -Stop Lasix 20 mg IV q6h x 12 doses -Restart home Lasix 20 mg PO daily -Metolazone 5mg x3d completed -Increase Coreg--> 6.25 bidwm -Restart Amlodipine 10 mg PO qd for better BP control 2. Acute kidney injury, present on admission, active, probable chronic kidney disease at baseline stage III. Ongoing - Possibly secondary to increased diuresis on admission -Cr has been slowly going up since 10/06 when it was 1.03. Her Cr has been consistently >1.5 since 01/06 -Cr 03/22: 1.87 -Etiology multifactorial - Lasix, CHF -Avoid nephrotoxic agents -Monitor with BMP 3. Possible acute exacerbation of COPD, present on admission, improving - Stop Solu-Medrol 60 ml q6 h, start Prednisone 40 PO x 3 days, then titrate - Repeat chest x-ray: 1. Improved aeration of the right lung. 2. Unchanged left basilar consolidation and pleural effusion. - Respiratory therapy - Continue bronchodilators 4. Elevated troponin of unknown etiology, chronic, present on admission. -Troponin 0.043 on admission -Consistently elevated troponin -Pharm stress test 04/14/15 done showing evidence for a myocardial infarct affecting the inferior/inferoseptal wall without evidence for significant mika- infarct ischemia -No further cardiac workup 5. Diabetes mellitus, non-insulin using, chronic, present on admission, presumed stable -HbA1c 6.2% (01/17/2016) -Constant carbohydrate diet 6. Depression and anxiety, present on admission, ongoing -Continue Sertraline 100 mg PO daily and Lorazepam PRN 7. CAD s/p RCA stent placement, chronic, present on admission, stable -Continue statin (Atorvastatin 40 mg) -Continue isosorbide mononitrate 8. Seizure disorder, chronic, present on admission, presumed stable -Phenytoin level 11.0 -Keppra levels pending -Continue Keppra 1000mg BID and Phenytoin 300mg daily hs 9. Tobacco use disorder, chronic,present on admission - Nicotine patch 21mg daily Dispo: Will DC to [facility]. Palliative care notes indicate goal for comfort as long as possible. CERTIFIED MEETING PROFESSIONAL spoke with pt's daughter Jessie on the phone regarding d/c plan. She states that she is happy that SNF is an option and the current plan. She states that her mom has been a little confused lately and that she is too much work for pt's grandson. Jessie Mitchell (daughter) [phone], [phone].Rossy Daniel (daughter) [phone] Update: Patient denies PT evaluation and can not be transferred to SNF. Patient also denies SNF. We requested Palliative consult. Palliative care following. GI Prophylaxis: Proton Pump Inhibitor VTE Prophylaxis: Sub-Q Heparin (Unfractionated) VTE Mechanical Devices: Intermittant Pneumatic CD Resuscitation Status: DNR/DNI:Do Not Resuscitate/Intubate Attending Statement I reviewed this patients chart, discussed the plan of care with the resident and examined the patient. I agree with the above physical exam and assessment and plan. RAFAEL GONZALEZ DO Mar 22, 2016 14:47 Yaw Bridges DO Mar 22, 2016 15:00
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
--- NOTE | 2016-03-22 18:37 | NUR ---
Activity/behavior Pt refused to work with PT today but did agree to amb around her bed and sit up in chair for dinner. Pt able to amb with FWW and 2 person assist and sat up for <10 minutes before insisting she had to lay down. Pt impulsive, bed alarm remains in place for safety. Pt alert to self and location, states she's in the hospital. Family in and out throughout this shift and enc pt to be compliant with care. Currently resting comfortably in bed, call light in reach and bed alarm on.
[2016-03-22] MEDS: Insulin GLARgine 100 Unit/mL Syringe SUBQ SCH (21:45)
[2016-03-22] MEDS: Phenytoin 100 mg ER Capsule PO SCH (21:47)
--- NOTE | 2016-03-22 22:00 | NUR ---
Restless Pt up OOB frequently. Toileted. Given PO ativan. WIll monitor for effectiveness
[2016-03-23] VITALS (9 sets, daily range): BP systolic 133–161; BP diastolic 65–75; PULSE 60–77; RESP 20–32; O2SAT 91–99
[2016-03-23] MEDS: Albuterol 2.5 mg/3 mL Inhalation Solution NEB SCH ×3 (00:45→08:58)
[2016-03-23] MEDS: LORazepam 0.5 mg Tablet PO PRN ×6 (01:06→23:29)
--- NOTE | 2016-03-23 01:21 | NUR ---
Restless Pt is restless. Attempting to get out of bed. "I want out of here right now." She was recently toileted. Given PO ativan and ibuprofen for generalized disomfort/restlessness. Will cont to monitor
--- NOTE | 2016-03-23 04:49 | NUR ---
Short of breath Pt stating again and again in a loud voice, "I can't breathe!" and "Water, water, water!" Oxygen sats are 92% on 2LNC Given sips of nectar thick water Given PO ativan recently Provided supportive care Will cont to monitor
[2016-03-23] MEDS: Insulin LISPRO 300 Unit/3 mL Inj SUBQ SCH ×4 (08:06→20:47)
[2016-03-23] MEDS: levETIRAcetam 500 mg Tablet PO SCH ×2 (08:08→20:22)
[2016-03-23] MEDS: Pantoprazole 40 mg ER24 Tablet PO SCH (08:08)
[2016-03-23] MEDS: Potassium Chloride 20 mEq SR Tablet PO SCH ×2 (08:08→16:43)
[2016-03-23] MEDS: Isosorbide Mononitrate 30 mg ER24 Tablet PO SCH (08:09)
[2016-03-23] MEDS: predniSONE 20 mg Tablet PO SCH (08:09)
[2016-03-23] MEDS ORDERED: Albuterol 2.5 mg/3 mL Inhalation Solution NEB PRN (09:10)
--- NOTE | 2016-03-23 17:07 | PCM.PNMED ---
Subjective Date of Service Mar 23, 2016 Subjective Overnight patient remained to be restless, attempting to get out the bed. Had difficulties breathing, was asking for water. Patient denies pain of any kind. She demands to let her go home. She repeats saying "I am not going to SNF. I am going home." Exam Vital Signs Vital Sign - Last Date Time Temp Pulse Resp B/P Pulse Ox O2 Delivery O2 Flow Rate FiO2 03/23/16 13:47 36.6 60 26 137/71 99 Nasal Cannula 2.50 Intake and Output 03/22/16 03/22/16 03/23/16 Cumulative From/Thru 15:00 23:00 07:00 03/13/16 14:55 - 03/23/16 04:58 Intake Total 250 ml 8689 ml Output Total 100 ml 99278 ml Balance 150 ml -2266 ml Intake Oral 250 ml 8679 ml IV Total 10 ml Output Urine Total 100 ml 13791 ml # Voids 3 23 # Bowel Movements 15 Exam General: Sleepy, labored breathing Cardiac: Regular rate and rhythm; no murmurs appreciated Respiratory: Decrease breath sounds all gilman; mild bilateral upper wheeze Abdomen: Soft, nontender, nondistended Extremities: No edema Skin: Warm and dry IVs and Medications Medications Reviewed: Medications were reviewed in detail Lab and Diagnostics Result Diagram: 03/21/16 0505 03/23/16 0510 X-Rays, CTs and MRIs PROCEDURE: X-RAY CHEST ONE VIEW, PORTABLE ([id number]) IMPRESSION: 1. Appearance is most suggestive of asymmetrical pulmonary edema, improved from last exam. This could also represent resolving pneumonia. 2. Small left pleural effusion may be slightly smaller. Dictated by: Luis A Rivera M.D. on 03/13/2016 at 15:36 Approved by: Luis A Rivera M.D. on 03/13/2016 at 15:36 PROCEDURE: X-RAY CHEST ONE VIEW, PORTABLE ([id number]) IMPRESSION: Interval progression in bilateral, left greater than right, diffuse interstitial and airspace disease are differential considerations include pulmonary interstitial/alveolar edema secondary to CHF and/or diffuse inflammatory process. Recommend followup chest x-ray to ascertain resolution. Dictated by: Francesca Davis M.D. on 03/13/2016 at 21:16 Approved by: Francesca Davis M.D. on 03/13/2016 at 21:16 PROCEDURE: X-RAY CHEST ONE VIEW, PORTABLE ([id number]) INDICATIONS: dyspnea FINDINGS: Surgical changes and devices: Multiple right cervical surgical clips are noted. Lungs and pleura: There is improved aeration of the right lung when compared to study dated 03/13/16. As before, there is a [id number] left pleural effusion and consolidation at the left lung base. Mediastinum: Mediastinal contours appear normal. Heart size is normal. Bones and chest wall: No suspicious bony lesions. Overlying soft tissues appear unremarkable. IMPRESSION: 1. Improved aeration of the right lung. 2. Unchanged left basilar consolidation and pleural effusion. Dictated by: Danica John M.D. on 03/18/2016 at 12:33 Approved by: Danica John M.D. on 03/18/2016 at 12:33 12-lead ECG ECG Interpretation: Normal sinus rhythm with ventricular bigeminy, probable anterior infarct old, aside from the bigeminy and the EKG appears unchanged compared to 03/01/2016, there is also LVH with repolarizaton Time: 15:25 Interpreted by: ED physician Additional Diagnostics Interpretation & Diagnostics pH 7.372 pCO2 61 pO2 82.5 cHCO3, - (P) 34.6 cBase (B) 8.4 Assessment & Plan This is a 70-year-old female with past medical history of COPD oxygen dependent at home, chronic tobacco dependency, hypertension, diabetes, coronary artery disease, and recent hospitalization for pulmonary embolism in the end of November. Patient presented to hospital ER via EMS following worsening shortness of breath and progressive weakness. 1. Acute on chronic systolic congestive heart failure, present on admission, resolved -Echocardiogram (10/23/2015): The ejection fraction is estimated to be 35-40%, which is decreased from her prior echo in 03/2015 with estimated EF of 45% -Pro-BNP 59727 -Chest x-ray suggesting bilateral pulmonary edema -Stop Lasix 20 mg IV q6h x 12 doses -Restart home Lasix 20 mg PO daily -Metolazone 5mg x3d completed -Increase Coreg--> 6.25 bidwm -Restart Amlodipine 10 mg PO qd for better BP control 2. Acute kidney injury, present on admission, active, probable chronic kidney disease at baseline stage III. Ongoing - Possibly secondary to increased diuresis on admission -Cr has been slowly going up since 10/06 when it was 1.03. Her Cr has been consistently >1.5 since 01/06 -Cr 03/23: 1.58 -Etiology multifactorial - Lasix, CHF -Avoid nephrotoxic agents -Monitor with BMP 3. Possible acute exacerbation of COPD, present on admission, improving - Stop Solu-Medrol 60 ml q6 h - Start Prednisone 40 PO x 3 days, day 1 today, then titrate - Repeat chest x-ray: 1. Improved aeration of the right lung. 2. Unchanged left basilar consolidation and pleural effusion. - Respiratory therapy - Continue bronchodilators 4. Elevated troponin of unknown etiology, chronic, present on admission. -Troponin 0.043 on admission -Consistently elevated troponin -Pharm stress test 04/14/15 done showing evidence for a myocardial infarct affecting the inferior/inferoseptal wall without evidence for significant mika- infarct ischemia -No further cardiac workup 5. Diabetes mellitus, non-insulin using, chronic, present on admission, presumed stable -HbA1c 6.2% (01/17/2016) -Constant carbohydrate diet 6. Depression and anxiety, present on admission, ongoing -Continue Sertraline 100 mg PO daily and Lorazepam PRN 7. CAD s/p RCA stent placement, chronic, present on admission, stable -Continue statin (Atorvastatin 40 mg) -Continue isosorbide mononitrate 8. Seizure disorder, chronic, present on admission, presumed stable -Phenytoin level 11.0 -Keppra levels pending -Continue Keppra 1000mg BID and Phenytoin 300mg daily hs 9. Tobacco use disorder, chronic,present on admission - Nicotine patch 21mg daily Dispo: Will DC to [facility]. Palliative care notes indicate goal for comfort as long as possible. [employer] spoke with pt's daughter Jessie on the phone regarding d/c plan. She states that she is happy that SNF is an option and the current plan. She states that her mom has been a little confused lately and that she is too much work for pt's grandson. Jessie Mitchell (daughter) [phone], [phone].Rossy Daniel (daughter) [phone] Update: Patient denies PT evaluation and can not be transferred to SNF. Patient also denies SNF. We requested Palliative consult. Palliative care following. GI Prophylaxis: Proton Pump Inhibitor VTE Prophylaxis: Sub-Q Heparin (Unfractionated) VTE Mechanical Devices: Intermittant Pneumatic CD Resuscitation Status: DNR/DNI:Do Not Resuscitate/Intubate Attending Statement I reviewed this patients chart, discussed the plan of care with the resident and examined the patient. I agree with the above physical exam and assessment and plan. RAFAEL GONZALEZ DO Mar 23, 2016 17:07 Yaw Bridges DO Mar 24, 2016 15:57
--- NOTE | 2016-03-23 17:32 | NUR ---
Behavior/resp Pt restless at beginning of shift then again towards dinnertime. Continually throwing legs off EOB and laying sideways in bed. Per grandson, this is her preferred position while sleeping. Bed alarm remains in place for safety. Pt continues to ind remove 02 and becomes SOB. Enc to keep in place, spot checks reveal 02 90-95% on 2L. Lungs remain coarse throughout. Pt did have two loose stools today. Bed in lowest, locked position and call light in reach.
[2016-03-23] MEDS: Phenytoin 100 mg ER Capsule PO SCH (20:21)
[2016-03-23] MEDS: Insulin GLARgine 100 Unit/mL Syringe SUBQ SCH (20:52)
[2016-03-24] VITALS (12 sets, daily range): BP systolic 120–181; BP diastolic 61–88; PULSE 40–95; RESP 20–32; O2SAT 83–99
--- NOTE | 2016-03-24 01:17 | NUR ---
Anxiety/Behavior Pt was calm and cooperative at beginning of shift but at about 2300 Pt became agitated and would not leave trilogy mask on. Pt desating as low as 79% without mask and Pt also removing CPOx. Pt also attempting to get out of bed and repetitively saying "I need to go down stairs. I cant breath!" (despite SpO2 94% with mask on)Pt given PO Ativan with little relief os symptoms. Sitter acquired and currently sitting at bed side keeping Pt in bed with mask on.
[2016-03-24] MEDS: LORazepam 0.5 mg Tablet PO PRN ×5 (03:43→22:58)
[2016-03-24] MEDS: Insulin LISPRO 300 Unit/3 mL Inj SUBQ SCH ×4 (08:00→21:06)
[2016-03-24] MEDS: Pantoprazole 40 mg ER24 Tablet PO SCH (09:20)
[2016-03-24] MEDS: levETIRAcetam 500 mg Tablet PO SCH ×2 (09:21→19:27)
[2016-03-24] MEDS: predniSONE 20 mg Tablet PO SCH (09:21)
[2016-03-24] MEDS: Isosorbide Mononitrate 30 mg ER24 Tablet PO SCH (09:22)
[2016-03-24] MEDS: Potassium Chloride 20 mEq SR Tablet PO SCH ×2 (09:23→18:12)
[2016-03-24] MEDS: Ondansetron 2 mg/mL 2 mL Inj IVPUSH PRN (12:31)
[2016-03-24] MEDS: Albuterol 2.5 mg/3 mL Inhalation Solution NEB PRN (12:36)
--- NOTE | 2016-03-24 14:20 | NUR ---
Nausea/confusion Patient reporting nausea and refusing lunch. Antiemetic given with good results. Patient asking for "nurse", and requesting nurse make "my appointment for me". Attempt to reorient to place, patient replied "OK" but continued to appear confused.
--- NOTE | 2016-03-24 14:27 | NUR ---
Social Work-continued d/c planning: data:EMR Reviewed. SW updated by Medical team that pt is likely comfort care. SW met with pt and daughter Rossy who states her mother is going to [facility] for rehab to get stronger. SW updated MD on the information and asked them to follow up with pt and family. SW to follow up with pt's general distillery worker Aundrea Sandy through the state tomorrow. If pt does go to SNF for rehab, GH authorization will need to be obtained. Paperwork in the chart. SW will continue to follow. Assessment:Pt who will likely discharge to SNF. Plan:[facility] has accepted pt. MD to further discuss goals of care with family. PT to continue to see pt, if rehab candidate GH authorization will need to be obtained. Paperwork in the chart. SW will continue to follow. MELVI Pace
--- NOTE | 2016-03-24 15:42 | PCM.PNMED ---
Subjective Date of Service Mar 24, 2016 Subjective Overnight: Periods of pleasantness and confusion with agitation. Today: Curled up in bed; no acute distress, depressed appearing. Denied any CP, SOB, abdominal pain. Would like to go home. Exam Vital Signs Vital Sign - Last Date Time Temp Pulse Resp B/P Pulse Ox O2 Delivery O2 Flow Rate FiO2 03/24/16 14:04 36.7 75 20 165/81 99 Nasal Cannula 2.00 Intake and Output 03/23/16 03/23/16 03/24/16 Cumulative From/Thru 15:00 23:00 07:00 03/13/16 14:55 - 03/24/16 06:41 Intake Total 350 ml 876 ml 120 ml 72799 ml Output Total 350 ml 18749 ml Balance 350 ml 526 ml 120 ml -1270 ml Intake Oral 350 ml 876 ml 120 ml 23286 ml IV Total 10 ml Output Urine Total 350 ml 94829 ml # Voids 3 2 3 31 # Bowel Movements 2 2 1 20 Exam General: Sleepy, no acute distress HENT: Atraumatic; sclera anicteric; mucus membranes moist Neck: Soft, no JVD Cardiac: Regular rate and rhythm; no murmurs appreciated Respiratory: Decrease breath sounds all gilman; bibasilar crackles appreciated; mild bilateral upper wheeze Abdomen: Soft, nontender, nondistended Extremities: No edema upper extremities; trace bilateral lower extremity edema at ankles Psych: Some interaction; limited insight and judgment Skin: Warm and dry IVs and Medications Medications Reviewed: Medications were reviewed in detail Lab and Diagnostics Result Diagram: 03/21/16 0505 03/23/16 0510 X-Rays, CTs and MRIs PROCEDURE: X-RAY CHEST ONE VIEW, PORTABLE ([id number]) IMPRESSION: 1. Appearance is most suggestive of asymmetrical pulmonary edema, improved from last exam. This could also represent resolving pneumonia. 2. Small left pleural effusion may be slightly smaller. Dictated by: Luis A Rivera M.D. on 03/13/2016 at 15:36 Approved by: Luis A Rivera M.D. on 03/13/2016 at 15:36 PROCEDURE: X-RAY CHEST ONE VIEW, PORTABLE ([id number]) IMPRESSION: Interval progression in bilateral, left greater than right, diffuse interstitial and airspace disease are differential considerations include pulmonary interstitial/alveolar edema secondary to CHF and/or diffuse inflammatory process. Recommend followup chest x-ray to ascertain resolution. Dictated by: Francesca Davis M.D. on 03/13/2016 at 21:16 Approved by: Francesca Davis M.D. on 03/13/2016 at 21:16 PROCEDURE: X-RAY CHEST ONE VIEW, PORTABLE ([id number]) INDICATIONS: dyspnea FINDINGS: Surgical changes and devices: Multiple right cervical surgical clips are noted. Lungs and pleura: There is improved aeration of the right lung when compared to study dated 03/13/16. As before, there is a [id number] left pleural effusion and consolidation at the left lung base. Mediastinum: Mediastinal contours appear normal. Heart size is normal. Bones and chest wall: No suspicious bony lesions. Overlying soft tissues appear unremarkable. IMPRESSION: 1. Improved aeration of the right lung. 2. Unchanged left basilar consolidation and pleural effusion. Dictated by: Danica John M.D. on 03/18/2016 at 12:33 Approved by: Danica John M.D. on 03/18/2016 at 12:33 12-lead ECG ECG Interpretation: Normal sinus rhythm with ventricular bigeminy, probable anterior infarct old, aside from the bigeminy and the EKG appears unchanged compared to 03/01/2016, there is also LVH with repolarizaton Time: 15:25 Interpreted by: ED physician Additional Diagnostics Interpretation & Diagnostics pH 7.372 pCO2 61 pO2 82.5 cHCO3, - (P) 34.6 cBase (B) 8.4 Assessment & Plan This is a 70-year-old female with past medical history of COPD oxygen dependent at home, chronic tobacco dependency, hypertension, diabetes, coronary artery disease, and recent hospitalization for pulmonary embolism in the end of November. Patient presented to hospital ER via EMS following worsening shortness of breath and progressive weakness. She was admitted for likely acute COPD exacerbation in addition to possible acute on chronic systolic CHF. 1. Acute on chronic systolic congestive heart failure, present on admission, resolved -Echocardiogram (10/23/2015): The ejection fraction is estimated to be 35-40%, which is decreased from her prior echo in 03/2015 with estimated EF of 45% -Pro-BNP 03/13: 23053 -Initial chest x-ray suggested bilateral pulmonary edema -Stop Lasix 20 mg IV q6h x 12 doses -Restart home Lasix 20 mg PO daily -Metolazone 5mg x3d completed -Increase Coreg--> 6.25 bidwm -Restart Amlodipine 10 mg PO qd for better BP control 2. Acute kidney injury, present on admission, active, probable chronic kidney disease at baseline stage III. Resolved - Possibly secondary to increased diuresis on admission, CHF exacerbation - Avoid nephrotoxic agents - Monitor with BMP 3. Possible acute exacerbation of COPD, present on admission, improving - Solu-Medrol 60 ml q6 h given initially, then converted to prednisone - Prednisone 40 PO stop date 03/25/16; consider additional dosing - Repeat chest x-ray 03/18: 1. Improved aeration of the right lung. 2. Unchanged left basilar consolidation and pleural effusion. - Respiratory therapy - Continue bronchodilators 4. Elevated troponin of unknown etiology, chronic, present on admission. -Troponin 0.043 on admission -Consistently elevated troponin -Pharm stress test 04/14/15 done showing evidence for a myocardial infarct affecting the inferior/inferoseptal wall without evidence for significant mika- infarct ischemia -No further cardiac workup 5. Diabetes mellitus, non-insulin using, chronic, present on admission, presumed stable -HbA1c 6.2% (01/17/2016) -Constant carbohydrate diet 6. Depression and anxiety, present on admission, ongoing -Continue Sertraline 100 mg PO daily and Lorazepam PRN 7. CAD s/p RCA stent placement, chronic, present on admission, stable -Continue statin (Atorvastatin 40 mg) -Continue isosorbide mononitrate 8. Seizure disorder, chronic, present on admission, presumed stable -Phenytoin level 11.0 -Keppra levels pending -Continue Keppra 1000mg BID and Phenytoin 300mg daily hs 9. Tobacco use disorder, chronic,present on admission - Nicotine patch 21mg daily Dispo: Will need to determine CLEAR goals of care from the family. According to EARLY CHILDHOOD EDUCATOR AIDE notes, [facility] has accepted. If family, and patient, wish to pursue C, [facility] is not open for the holiday, delay in DC. Will clarify. Palliative notes 03/22, state that comfort with Hospice as pt/family choice. Patient family info: Jessie Stephen (daughter) [phone], [phone].Rossy Croftu (daughter) [phone] Pain Evaluation: Adequate Pain Control GI Prophylaxis: Proton Pump Inhibitor VTE Prophylaxis: Sub-Q Heparin (Unfractionated) VTE Mechanical Devices: Intermittant Pneumatic CD Resuscitation Status: DNR/DNI:Do Not Resuscitate/Intubate Attending Statement I reviewed this patients chart, discussed the plan of care with the resident and examined the patient. I agree with the above physical exam and assessment and plan. Zayda Horner DO Mar 24, 2016 15:42 Yaw Bridges DO Mar 24, 2016 15:59
--- NOTE | 2016-03-24 18:28 | NUR ---
Patient refusing diner."I want to sleep". Persistence required to get patient to take meds.
[2016-03-24] MEDS: Phenytoin 100 mg ER Capsule PO SCH (19:28)
[2016-03-24] MEDS: Insulin GLARgine 100 Unit/mL Syringe SUBQ SCH (21:09)
[2016-03-25] VITALS (9 sets, daily range): BP systolic 121–169; BP diastolic 49–81; PULSE 59–102; RESP 18–32; O2SAT 83–98
[2016-03-25 06:16] LABS: BASOPHILS % (AUTO) 0.2 % (0-3)
[2016-03-25 06:25] LABS: EOSINOPHILS % (AUTO) 0.3 % (0-5); MONOCYTES % (AUTO) 10.6 % (4-12); Mean Corpuscular Hemoglobin 21.9 pg (27.0-35.0); Mean Corpuscular Volume 82.6 fL (81-100); NEUTROPHILS % (AUTO) 67.3 % (40-74); Platelet Count 158 bil/L (150-400)
[2016-03-25 06:28] LABS: Magnesium 1.9 mg/dL (1.6-2.6); Phosphorus 4.6 mg/dL (2.5-4.9)
--- NOTE | 2016-03-25 07:21 | NUR ---
Calm Behavior Pt given 2 doses of Ativan at beginning of shift and PT has been calm, complaint, and asleep most of shift. Pts SpO2 has been between 88% and 93% and at times was on RA.
[2016-03-25] MEDS: LORazepam 0.5 mg Tablet PO PRN (07:43)
--- NOTE | 2016-03-25 07:55 | NUR ---
Respiratory: Responded to patient calling "help". Patient stating "I can't breath". O2 Sats low 80s, o2 mask applied oxygen @ 4L, sats remaining in 88-92%, RT called for breathing treatment, Ativan 0.5mg administered. Will continue to follow. Addendum: 03/25/16 at 1204 by EMELYN BOYKIN RN Patient now resting calmly,O2 2L via oxy mask, O2 sats 90%.
[2016-03-25] MEDS: Insulin LISPRO 300 Unit/3 mL Inj SUBQ SCH ×4 (08:00→20:38)
[2016-03-25] MEDS: Albuterol 2.5 mg/3 mL Inhalation Solution NEB PRN ×2 (08:19→19:45)
[2016-03-25] MEDS: Potassium Chloride 20 mEq SR Tablet PO SCH (09:55)
[2016-03-25] MEDS: levETIRAcetam 500 mg Tablet PO SCH ×2 (09:56→20:27)
[2016-03-25] MEDS: Isosorbide Mononitrate 30 mg ER24 Tablet PO SCH (09:57)
[2016-03-25] MEDS: Pantoprazole 40 mg ER24 Tablet PO SCH (09:57)
[2016-03-25] MEDS: predniSONE 20 mg Tablet PO SCH (09:57)
--- NOTE | 2016-03-25 13:10 | NUR ---
Social Work-readiness for discharge: Data:EMR Reviewed. Pt is on day 12 of hospitalization for COPD per H&P. Pt is not medically stable for discharge at this time. VICKEY placed a call to admissions at [facility] to discuss pt. Adrienne states they still have pt on list and are able to accept when ready with Dr. Keating to follow. VICKEY explained at this point it is unclear if pt will be rehab or comfort care. VICKEY spoke with Admitting and obtained pt's [facility] # [phone]. VICKEY spoke with Adrienne At [facility] to determine if GH authorization did not get obtained if they would accept pt under Medicaid. Adrienne states that their technical account executive would have to look at this, but she will not be in until tomorrow. VICKEY spoke with who states they would like for palliative care to re-meet with pt and family tomorrow to further discuss goals of care. VICKEY followed up with daughter Rossy at bedside to further discuss. VICKEY explained that pt has been not participating in PT for the last several days. VICKEY explained that if pt does not participate, it is very unlikely pt's insurance will authorize SNF stay. VICKEY explained if pt is comfort care, insurance will not authorize this. VICKEY explained that pt maybe able to go to SNF under Medicaid, but facility would have to look at this, which they are. VICKEY explained that a family meeting would hopefully be happening tomorrow, daughter agreeable. Paperwork and PASRR in the chart. SW will continue to follow. Assessment:Pt who will likely need SNF. Plan:[facility] has accepted pt with Dr. Keating to follow. Family meeting to take place tomorrow to further discuss goals of care, comfort care vs rehab. Paperwork and PASRR in the chart. SW will continue to follow. MELVI Pace
--- NOTE | 2016-03-25 14:20 | PCM.PNMED ---
Subjective Date of Service Mar 25, 2016 Subjective Patient is at her baseline. Continues to struggle breathing. Denies SNF. Exam Vital Signs Vital Sign - Last Date Time Temp Pulse Resp B/P Pulse Ox O2 Delivery O2 Flow Rate FiO2 03/25/16 10:38 36.4 60 20 135/49 83 OxyMask 2.00 03/25/16 04:37 89 Intake and Output 03/24/16 03/24/16 03/25/16 Cumulative From/Thru 15:00 23:00 07:00 03/13/16 14:55 - 03/25/16 04:43 Intake Total 560 ml 22787 ml Output Total 38491 ml Balance 560 ml -710 ml Intake Oral 560 ml 35312 ml IV Total 10 ml Output Urine Total 62643 ml # Voids 4 3 38 # Bowel Movements 03 24 21 Exam General: Sleepy, no acute distress HENT: Atraumatic; sclera anicteric; mucus membranes moist Neck: Soft, no JVD Cardiac: Regular rate and rhythm; no murmurs appreciated Respiratory: Decrease breath sounds all gilman; bibasilar crackles appreciated; mild bilateral upper wheeze Abdomen: Soft, nontender, nondistended Extremities: No edema upper extremities; trace bilateral lower extremity edema at ankles Psych: Some interaction; limited insight and judgment Skin: Warm and dry Lab and Diagnostics Result Diagram: 03/25/16 0520 03/25/16 0520 X-Rays, CTs and MRIs PROCEDURE: X-RAY CHEST ONE VIEW, PORTABLE ([id number]) IMPRESSION: 1. Appearance is most suggestive of asymmetrical pulmonary edema, improved from last exam. This could also represent resolving pneumonia. 2. Small left pleural effusion may be slightly smaller. Dictated by: Luis A Rivera M.D. on 03/13/2016 at 15:36 Approved by: Luis A Rivera M.D. on 03/13/2016 at 15:36 PROCEDURE: X-RAY CHEST ONE VIEW, PORTABLE ([id number]) IMPRESSION: Interval progression in bilateral, left greater than right, diffuse interstitial and airspace disease are differential considerations include pulmonary interstitial/alveolar edema secondary to CHF and/or diffuse inflammatory process. Recommend followup chest x-ray to ascertain resolution. Dictated by: Francesca Davis M.D. on 03/13/2016 at 21:16 Approved by: Francesca Davis M.D. on 03/13/2016 at 21:16 PROCEDURE: X-RAY CHEST ONE VIEW, PORTABLE ([id number]) INDICATIONS: dyspnea FINDINGS: Surgical changes and devices: Multiple right cervical surgical clips are noted. Lungs and pleura: There is improved aeration of the right lung when compared to study dated 03/13/16. As before, there is a [id number] left pleural effusion and consolidation at the left lung base. Mediastinum: Mediastinal contours appear normal. Heart size is normal. Bones and chest wall: No suspicious bony lesions. Overlying soft tissues appear unremarkable. IMPRESSION: 1. Improved aeration of the right lung. 2. Unchanged left basilar consolidation and pleural effusion. Dictated by: Danica John M.D. on 03/18/2016 at 12:33 Approved by: Danica John M.D. on 03/18/2016 at 12:33 12-lead ECG ECG Interpretation: Normal sinus rhythm with ventricular bigeminy, probable anterior infarct old, aside from the bigeminy and the EKG appears unchanged compared to 03/01/2016, there is also LVH with repolarizaton Time: 15:25 Interpreted by: ED physician Additional Diagnostics Interpretation & Diagnostics pH 7.372 pCO2 61 pO2 82.5 cHCO3, - (P) 34.6 cBase (B) 8.4 Assessment & Plan This is a 70-year-old female with past medical history of COPD oxygen dependent at home, chronic tobacco dependency, hypertension, diabetes, coronary artery disease, and recent hospitalization for pulmonary embolism in the end of November. Patient presented to hospital ER via EMS following worsening shortness of breath and progressive weakness. She was admitted for likely acute COPD exacerbation in addition to possible acute on chronic systolic CHF. 1. Acute on chronic systolic congestive heart failure, present on admission, resolved -Echocardiogram (10/23/2015): The ejection fraction is estimated to be 35-40%, which is decreased from her prior echo in 03/2015 with estimated EF of 45% -Pro-BNP 03/13: 07053 -Initial chest x-ray suggested bilateral pulmonary edema -Stop Lasix 20 mg IV q6h x 12 doses -Restart home Lasix 20 mg PO daily -Metolazone 5mg x3d completed -Increase Coreg--> 6.25 bidwm -Restart Amlodipine 10 mg PO qd for better BP control 2. Acute kidney injury, present on admission, active, probable chronic kidney disease at baseline stage III. Resolved - Possibly secondary to increased diuresis on admission, CHF exacerbation - Avoid nephrotoxic agents - Monitor with BMP 3. Possible acute exacerbation of COPD, present on admission, improving - Solu-Medrol 60 ml q6 h given initially, then converted to prednisone - Prednisone 40 PO stop date 03/25/16; Prednisone 20 mg PO starting tomorrow - Repeat chest x-ray 03/18: 1. Improved aeration of the right lung. 2. Unchanged left basilar consolidation and pleural effusion. - Respiratory therapy - Continue bronchodilators 4. Elevated troponin of unknown etiology, chronic, present on admission. -Troponin 0.043 on admission -Consistently elevated troponin -Pharm stress test 04/14/15 done showing evidence for a myocardial infarct affecting the inferior/inferoseptal wall without evidence for significant mika- infarct ischemia -No further cardiac workup 5. Diabetes mellitus, non-insulin using, chronic, present on admission, presumed stable -HbA1c 6.2% (01/17/2016) -Constant carbohydrate diet 6. Depression and anxiety, present on admission, ongoing -Continue Sertraline 100 mg PO daily and Lorazepam PRN 7. CAD s/p RCA stent placement, chronic, present on admission, stable -Continue statin (Atorvastatin 40 mg) -Continue isosorbide mononitrate 8. Seizure disorder, chronic, present on admission, presumed stable -Phenytoin level 11.0 -Keppra levels pending -Continue Keppra 1000mg BID and Phenytoin 300mg daily hs 9. Tobacco use disorder, chronic,present on admission - Nicotine patch 21mg daily Dispo: Will need to determine CLEAR goals of care from the family. According to DIRECTOR OF MANAGED CARE notes, [facility] has accepted. If family, and patient, wish to pursue [facility], [facility] is not open for the holiday, delay in [place]. Will clarify. Palliative notes 03/22, state that comfort with Hospice as pt/family choice. Planning to discharge tomorrow, 03/26/16. Patient family info: Jessie Mitchell (daughter) [phone], [phone].Rossy Daniel (daughter) [phone] GI Prophylaxis: Proton Pump Inhibitor VTE Prophylaxis: Sub-Q Heparin (Unfractionated) VTE Mechanical Devices: Intermittant Pneumatic CD Resuscitation Status: DNR/DNI:Do Not Resuscitate/Intubate Attending Statement The patient was seen and examined together with Dr. Gonzalez on 03/25/2016 and I agree with the history, exam and plan as outlined in the note above. RAFAEL GONZALEZ DO Mar 25, 2016 14:20 Quentin Dickerson MD Mar 25, 2016 20:41
--- NOTE | 2016-03-25 14:55 | NUR ---
Temp not taken at 2pm vitals - PT sleeping and at bad angle for both auxiliary or oral. Nasal canula had fallen out and was not on mask- which is why Room Air noted for vitals as well. O2 level maintaining well at 95 so not woken up per RN
--- NOTE | 2016-03-25 15:29 | NUR ---
PT NOTE-- Patient has been unable to participate with PT for several days. Will discharge from PT caseload at this time. Please re-order if appropriate.
[2016-03-25] MEDS: LORazepam 0.5 mg Tablet PO SCH ×2 (17:48→23:17)
[2016-03-25] MEDS: Phenytoin 100 mg ER Capsule PO SCH (20:28)
[2016-03-25] MEDS: Insulin GLARgine 100 Unit/mL Syringe SUBQ SCH (20:41)
[2016-03-26] VITALS (11 sets, daily range): BP systolic 145–178; BP diastolic 63–88; PULSE 43–97; RESP 24–30; O2SAT 85–94
--- NOTE | 2016-03-26 04:32 | NUR ---
BIPAP/BEHAVIOR Patient refuses to wear bi-pap at night. states "its cutting my face off". Patient up and down most of the night restless. complaining she is cold. given 3 warm blankets, States "I don't know what I need, will you stay with me." hourly rounding, anticipating needs. Patient on 2L via NC with CPOX. 02 maintained in low 90% while sleeping. Jessica bed alarm in place. Will continue to monitor.
[2016-03-26] MEDS: LORazepam 0.5 mg Tablet PO SCH (06:30)
[2016-03-26] MEDS: Pantoprazole 40 mg ER24 Tablet PO SCH (07:30)
[2016-03-26] MEDS: Insulin LISPRO 300 Unit/3 mL Inj SUBQ SCH ×4 (08:00→21:31)
--- NOTE | 2016-03-26 08:15 | NUR ---
Refusing medication Pt is very drowsy, does rouse to voice touch. Refusing to take any oral medication at this time, sts "just leave me alone, I just want to sleep". This RN tried to educate the pt on the importance of consistent use of ordered medications, pt again refuses to take her oral medications.
[2016-03-26] MEDS: levETIRAcetam 500 mg Tablet PO SCH ×2 (08:30→21:18)
[2016-03-26] MEDS: predniSONE 20 mg Tablet PO SCH (08:30)
[2016-03-26] MEDS: Potassium Chloride 20 mEq SR Tablet PO SCH (08:30)
[2016-03-26] MEDS: Isosorbide Mononitrate 30 mg ER24 Tablet PO SCH (08:30)
--- NOTE | 2016-03-26 11:43 | NUR ---
Spoke with Tarun in admissions at [facility] and they are working on what patient would have for share of cost if she comes. Tarun has already called and left message with Salud Grey at [facility]. Family will meet with [facility] later today to iron out details for discharge. Updated DURABLE MEDICAL EQUIPMENT TECHNICIAN
--- NOTE | 2016-03-26 15:14 | NUR ---
NUTRITION FOLLOW-UP ASSESS: 70YO F admit with acute on chronic CHF with bilateral pulmonary edema. Acute kidney injury--noted probably CKD stage III, poss exacerbation COPD. Pt refusing BiPAP. Per MD note, pt is close to her baseline. ST recommending pureed diet w/ nectar thick liquids. Pt tolerating diet well. Palliative meeting scheduled for later today. PMHx: COPD on O2, HTN, DM, CAD, PE, Seizures DIET: Pureed. PO 25-100% (refused x1) LABS: Reviewed. Na 147, CI2 34, BUN 47, Cr 1.53, Ca 8.2, Albumin 2.8 MEDICATIONS: Reviewed. Prednisone, Potassium chloride, Insulin, Lasix, Dilantin GI symptoms / stool: BM x2 1/3 Skin Integrity: No issues noted; Willie Apple ANTHROPOMETRICS: Current Wt: 54.8 kg BMI: 23.6 kg/m2, Admit wt 53.18 kg IBW: 45.5 kg ESTIMATED NEEDS (COPD): Calories:9689-5085 kcal (30 - 35 kcal / kg BW) Protein: 65 - 80 g protein (1.2 - 1.5 g / kg BW) Fluid: 8552-3192 ml (25-30 ml / kg BW) NUTRITION DIAGNOSIS: 1) Chew/swallowing difficulty related to confusion/weakness as evidenced by RN reports, ST eval ordered.---PERSISTS 2) Increased nutrient need related to chronic respiratory disease as evidenced by COPD. INTERVENTION: 1) Continue diet per ST recommendation 2) Pt maintaining adequate PO intake, will continue to monitor and add supplements as needed. MONITOR/EVALUATE: PO intake, Wt, labs, POC. Follow up per moderate nutrition risk guidelines
--- NOTE | 2016-03-26 17:32 | PCM.PNMED ---
Subjective Date of Service Mar 26, 2016 Subjective Patient is at her baseline. She is either agitated or sleepy. Refuses her oral meds. Denies pain. Exam Vital Signs Vital Sign - Last Date Time Temp Pulse Resp B/P Pulse Ox O2 Delivery O2 Flow Rate FiO2 03/26/16 13:12 35.9 55 30 168/63 91 Nasal Cannula 1.50 03/25/16 04:37 89 Intake and Output 03/25/16 03/25/16 03/26/16 Cumulative From/Thru 15:00 23:00 07:00 03/13/16 14:55 - 03/26/16 06:13 Intake Total 640 ml 0 ml 45552 ml Output Total 200 ml 150 ml 56891 ml Balance 440 ml -150 ml -420 ml Intake Oral 640 ml 0 ml 24484 ml IV Total 10 ml Output Urine Total 200 ml 150 ml 54874 ml # Voids 3 2 43 # Bowel Movements 1 2 25 Exam General: Sleepy, no acute distress HENT: Atraumatic; sclera anicteric; mucus membranes moist Cardiac: Regular rate and rhythm; no murmurs appreciated Respiratory: Decrease breath sounds all gilman; bibasilar crackles appreciated; mild bilateral upper wheeze Abdomen: Soft, nontender, nondistended Extremities: No edema upper extremities; trace bilateral lower extremity edema at ankles Psych: Some interaction; limited insight and judgment Skin: Warm and dry Lab and Diagnostics Result Diagram: 03/25/16 0520 03/25/16 0520 X-Rays, CTs and MRIs PROCEDURE: X-RAY CHEST ONE VIEW, PORTABLE ([id number]) IMPRESSION: 1. Appearance is most suggestive of asymmetrical pulmonary edema, improved from last exam. This could also represent resolving pneumonia. 2. Small left pleural effusion may be slightly smaller. Dictated by: Luis A Rivera M.D. on 03/13/2016 at 15:36 Approved by: Luis A Rivera M.D. on 03/13/2016 at 15:36 PROCEDURE: X-RAY CHEST ONE VIEW, PORTABLE ([id number]) IMPRESSION: Interval progression in bilateral, left greater than right, diffuse interstitial and airspace disease are differential considerations include pulmonary interstitial/alveolar edema secondary to CHF and/or diffuse inflammatory process. Recommend followup chest x-ray to ascertain resolution. Dictated by: Francesca Davis M.D. on 03/13/2016 at 21:16 Approved by: Francesca Davis M.D. on 03/13/2016 at 21:16 PROCEDURE: X-RAY CHEST ONE VIEW, PORTABLE ([id number]) INDICATIONS: dyspnea FINDINGS: Surgical changes and devices: Multiple right cervical surgical clips are noted. Lungs and pleura: There is improved aeration of the right lung when compared to study dated 03/13/16. As before, there is a [id number] left pleural effusion and consolidation at the left lung base. Mediastinum: Mediastinal contours appear normal. Heart size is normal. Bones and chest wall: No suspicious bony lesions. Overlying soft tissues appear unremarkable. IMPRESSION: 1. Improved aeration of the right lung. 2. Unchanged left basilar consolidation and pleural effusion. Dictated by: Danica John M.D. on 03/18/2016 at 12:33 Approved by: Danica John M.D. on 03/18/2016 at 12:33 12-lead ECG ECG Interpretation: Normal sinus rhythm with ventricular bigeminy, probable anterior infarct old, aside from the bigeminy and the EKG appears unchanged compared to 03/01/2016, there is also LVH with repolarizaton Time: 15:25 Interpreted by: ED physician Additional Diagnostics Interpretation & Diagnostics pH 7.372 pCO2 61 pO2 82.5 cHCO3, - (P) 34.6 cBase (B) 8.4 Assessment & Plan This is a 70-year-old female with past medical history of COPD oxygen dependent at home, chronic tobacco dependency, hypertension, diabetes, coronary artery disease, and recent hospitalization for pulmonary embolism in the end of November. Patient presented to hospital ER via EMS following worsening shortness of breath and progressive weakness. She was admitted for likely acute COPD exacerbation in addition to possible acute on chronic systolic CHF. 1. Acute on chronic systolic congestive heart failure, present on admission, resolved -Echocardiogram (10/23/2015): The ejection fraction is estimated to be 35-40%, which is decreased from her prior echo in 03/2015 with estimated EF of 45% -Pro-BNP 03/13: 42279 -Initial chest x-ray suggested bilateral pulmonary edema -Stop Lasix 20 mg IV q6h x 12 doses -Restart home Lasix 20 mg PO daily -Metolazone 5mg x3d completed -Increase Coreg--> 6.25 bidwm -Restart Amlodipine 10 mg PO qd for better BP control 2. Acute kidney injury, present on admission, active, probable chronic kidney disease at baseline stage III. Resolved - Possibly secondary to increased diuresis on admission, CHF exacerbation - Avoid nephrotoxic agents - Monitor with BMP 3. Possible acute exacerbation of COPD, present on admission, improving - Solu-Medrol 60 ml q6 h given initially, then converted to prednisone - Prednisone 40 PO stop date 03/25/16; Prednisone 20 mg PO starting 03/26/16. - Repeat chest x-ray 03/18: 1. Improved aeration of the right lung. 2. Unchanged left basilar consolidation and pleural effusion. - Respiratory therapy - Continue bronchodilators 4. Elevated troponin of unknown etiology, chronic, present on admission. -Troponin 0.043 on admission -Consistently elevated troponin -Pharm stress test 04/14/15 done showing evidence for a myocardial infarct affecting the inferior/inferoseptal wall without evidence for significant mika- infarct ischemia -No further cardiac workup 5. Diabetes mellitus, non-insulin using, chronic, present on admission, presumed stable -HbA1c 6.2% (01/17/2016) -Constant carbohydrate diet 6. Depression and anxiety, present on admission, ongoing -Continue Sertraline 100 mg PO daily and Lorazepam PRN 7. CAD s/p RCA stent placement, chronic, present on admission, stable -Continue statin (Atorvastatin 40 mg) -Continue isosorbide mononitrate 8. Seizure disorder, chronic, present on admission, presumed stable -Phenytoin level 11.0 -Keppra levels pending -Continue Keppra 1000mg BID and Phenytoin 300mg daily hs 9. Tobacco use disorder, chronic,present on admission - Nicotine patch 21mg daily Dispo: Will need to determine CLEAR goals of care from the family. According to SENIOR NATIONAL ACCOUNT MANAGER notes, [facility] has accepted. If family, and patient, wish to pursue [facility], [facility] [employer] is not open for the holiday, delay in [place]. Will clarify. Palliative notes 03/22, state that comfort with Hospice as pt/family choice. Social cervices spoke with Tarun in admissions at [facility] and they are working on what patient would have for share of cost if she comes. Tarun has already called and left message with Salud Grey at [facility]. Family will meet with [facility] later today to iron out details for discharge. Planning to discharge tomorrow, 03/27/16. Patient family info: Jessie Mitchell (daughter) [phone], [phone].Rossy Daniel (daughter) [phone] GI Prophylaxis: Proton Pump Inhibitor VTE Prophylaxis: Sub-Q Heparin (Unfractionated) VTE Mechanical Devices: Intermittant Pneumatic CD Resuscitation Status: DNR/DNI:Do Not Resuscitate/Intubate Attending Statement The patient was seen and examined together with Dr. Gonzalez on 03/26/2016 and I agree with the history, exam and plan as outlined in the note above. RAFAEL GONZALEZ DO Mar 26, 2016 15:34 Quentin Dickerson MD Mar 27, 2016 09:46
--- NOTE | 2016-03-26 18:37 | PCM.PNPALL ---
Date of Service Mar 26, 2016 Date of Hospital Admission: Mar 13, 2016 at 18:35 Date of Palliative Consult: Mar 22, 2016 Palliative Care Recommendation This is a 70 yr old woman known previously to the palliative care team. She is readmitted with expected dyspnea in keeping with known heart disease and COPD. Records reviewed and discussion with medical team and CM/SS and with patient and daughter Rossy Summary of palliative recommendations: -Symptom management (Pain/other) Dyspnea-chronic I suspect getting close to baseline based on pt and daughter' s description Delirium-suspect some mild baseline dementia complicated by hospitalization, progressive weakness. She does not have capacity for complex decisions. she does state that she trusts Rossy and Jessie- daughters to be decision makers for her. Rossy would like ECF to be labeled as short term with a goal to improve and get back home to make this a palatable decision for her mother. She recognizes this most likely is a final move. ECF placement --depending on funding- would be easier on Rossy if in [facility]. -DPOA/Advanced Directives/POLST --prior POLST: DNR/DNI, limited. Reviewed today and goal is DNR/DNI and comfort pathway. Rossy is interested in hospice info visit. -Family/emotional support Rossy defines she has learned a lot over the last few months with her mothers decline. She will try and communicate this to her sister Jessie. Problems: End of Life Preferences pt prefers home; family not able to provide this. CM to assist. Disposition family still discussing options Resuscitation Status Resuscitation Status: DNR/DNI:Do Not Resuscitate/Intubate POLST Updates/Changes Previous POLST?: Yes Antibiotics: Determine Use or Limitations Artificially Admin Nutrition: No Artifical Nutrition by Tube POLST Discussed with: Patient, Spouse/Other (daughter Rossy) POLST Review Outcome: No Change . Advanced Care Planning Address: Comfort care Pain: None Symptom management: Nausea, Dyspnea, Delirium Palliative Subjective Brief History 70 YO WITH SEVERE COPD, smoker, his of margaux colon CA ROXANA and new breast CA but not playing role in present illness. Hx of CAD with hx NC and diastolic CHF, AFIB and hx of CVA, DM who was admitted with acute on chronic COPD exacerbation and CHF. She initially was agitated and impulsive and shows some signs of dementia/delirium-asking to go see her mother on the way home etc. She had been at home with her grandson as a caregiver but she is too high care need. Her daughter also describes agitation at home-asking for BIPAP/mask then removing it after 15 min and back and forth. Pt acknowledges ongoing weight loss and anorexia Patient/Family Concerns Inability to care for at home Subjective Chronic SOB Forgetful Generally uncomfortable Palliative Performance Scale PPS Patient Status: Current PPS Ambulation: Mainly Bed PPS Activity: Unable to do any activity PPS Self-Care: Considerable assistance required PPS Intake: Minimal to sips Performace Scale: 30% ADLs ADL Patient Status: Current ADL Ambulation: Mainly Bed ADL Dressing: Mainly assistance ADL Feeding: Mainly assistance ADL Hygene/bathing: Mainly assistance ADL Transfers: Mainly assistance Responsive Patient Symptoms Pain (current): Mild Pain (minimum): None Pain (maximium): Moderate Tiredness/Fatigue: Moderate Nausea: Mild Depression: Mild Anxiety: Moderate Drowsiness/Sleepiness: Moderate Anorexia: Moderate Shortness of Breath: Moderate Delirium see HPI Objective Findings Exam Vital Sign - Last Date Time Temp Pulse Resp B/P Pulse Ox O2 Delivery O2 Flow Rate FiO2 03/26/16 16:59 36.8 82 26 170/84 93 Nasal Cannula 1.50 03/25/16 04:37 89 Intake and Output 03/25/16 03/25/16 03/26/16 Cumulative From/Thru 15:00 23:00 07:00 03/13/16 14:55 - 03/26/16 06:13 Intake Total 640 ml 0 ml 71915 ml Output Total 200 ml 150 ml 52574 ml Balance 440 ml -150 ml -420 ml Intake Oral 640 ml 0 ml 56715 ml IV Total 10 ml Output Urine Total 200 ml 150 ml 56727 ml # Voids 3 2 43 # Bowel Movements 1 2 25 General: Alert, Oriented, Person, Mild distress, Agitated (mild) HEENT: Atraumatic, EOMI Heart: Exam Unremarkable, Dysrhythmia Present (usually in 70's-afib but can decrease to 40's with bigemeny) Lungs: Diminished (markedly so with poor very wet cough) Abdomen: Soft Neuro: Arousable (at times), Follows Commands Extremities: No Edema Lab/Diagnostics Lab and Imaging results reviewed in detail in EMR. CR 1.5 Patient/Family Conference Members Present Family Members Present Discussed with Rossy- oldest daughter Discussion/Goals of Care Discussion FAMILY UNDERSTANDING OF DISEASE: Patient does not recognize severity of disease and is not truly decisional. She is not able to appreciate consequences of her decisions and states she can take care of self with help of family but acknowledges all family works and she is made at the grandson for not having a job. She has not been able to work with PT-due to SOB and inertia Rossy states she understands the decline and that she can see the progression over the last few months and hospital stays. Reviewed concept of comfort with hospice support and she understands this-with goal to give patient quality time with adequate support. She understands progression of disease as well as cognitive dysfunction. Patient refusal to go to ECF past has been a burden for Rossy who wants to support her mother but she recognizes the need of 24/ support. DISEASE PROGRESSION/EVIDENCE OF DECLINE: SYMPTOM BURDEN: GOALS: comfort HOPES/WORRIES: FAMILY WISHES/VALUES: Time spent Total time [ 70] minutes; >50% face to face with patient and/or family, providing counselling regarding plans and recommendations, and in care coordination with his/her medical teams. WILL COMPLETE POLST TOMORROW IF DAUGHTER AVAILABLE I also spent an additional [ ] minutes counseling for advanced care planning with the patient/the patients family/the surrogate decision maker. copies to: Emeterio Cadena MD, Deborah A MD Mar 26, 2016 18:37
[2016-03-26] MEDS: Albuterol 2.5 mg/3 mL Inhalation Solution NEB PRN (19:29)
[2016-03-26] MEDS: Phenytoin 100 mg ER Capsule PO SCH (21:19)
[2016-03-26] MEDS: Insulin GLARgine 100 Unit/mL Syringe SUBQ SCH (21:30)
[2016-03-27] VITALS (11 sets, daily range): BP systolic 139–169; BP diastolic 54–92; PULSE 57–96; RESP 22–30; O2SAT 94–100
--- NOTE | 2016-03-27 01:01 | NUR ---
RESTLESSNESS/TRILOGY Pt has been generally restless, up frequently to BR or up at side of bed. Pt repeatedly takes off trilogy masked. Pt asked if she would like to use nasal cannula instead, pt on 2L via nasal cannula at this time. Night resident paged regarding ordering prn Ativan to alleviated restlessness. Ativan and such medications are currently on hold d/t pts plan of discharge to SNF. Pt rests for brief moments. Continue to monitor.
[2016-03-27] MEDS: Albuterol 2.5 mg/3 mL Inhalation Solution NEB PRN ×2 (01:20→20:39)
[2016-03-27] MEDS: Pantoprazole 40 mg ER24 Tablet PO SCH (07:54)
[2016-03-27] MEDS: levETIRAcetam 500 mg Tablet PO SCH ×2 (07:55→20:27)
[2016-03-27] MEDS: predniSONE 20 mg Tablet PO SCH (07:55)
[2016-03-27] MEDS: Isosorbide Mononitrate 30 mg ER24 Tablet PO SCH (07:55)
[2016-03-27] MEDS: Potassium Chloride 20 mEq SR Tablet PO SCH (07:56)
[2016-03-27] MEDS: Insulin LISPRO 300 Unit/3 mL Inj SUBQ SCH ×4 (08:05→20:27)
[2016-03-27] MEDS ORDERED: Morphine 20 mg/mL Oral Syringe SL/PO PRN (10:35)
--- NOTE | 2016-03-27 10:40 | NUR ---
PT NOTE-- Patient is on comfort care. D/C PT per [facility] rounds.
[2016-03-27] MEDS ORDERED: Morphine 2 mg/mL 5 mL Oral Solution SL PRN (11:05)
--- NOTE | 2016-03-27 11:06 | NUR ---
[facility] signed with daughter Rossy via phone MELVI Pace
--- NOTE | 2016-03-27 11:08 | NUR ---
[facility] can accept under her Medicaid. Pt's participation fee is $1,022 that family would have to pay prior to pt's admission. MELVI Pace
--- NOTE | 2016-03-27 12:25 | NUR ---
Mentation Pt alert and oriented, but not completely rational. Believes gaggerman BACTERIOLOGIST SOIL took her shoes home, wants day staff to "find them and tell them to get me back my shoes". Pt continues to believe this even after being shown belongings in closet. Agreed to take all meds this am. Frequently removing oxymask. Frequently ambulating around room.
--- NOTE | 2016-03-27 13:45 | NUR ---
Social Work-readiness for discharge: Data:EMR reviewed. Pt is on day 14 of hospitalization for COPD per H&P. SW placed a call to jennyfer Blair to [phone] to discuss. SW explained to jennyfer Blair that [facility] has accepted pt, but pt would have a participation fee of $1,022.72 that she would have to pay up front either tenorio or check. Jennyfer Blair states that jennyfer Roman manages all of pt's finances and she will have to call her and provide her with the information and then have jennyfer Roman call SW. Rossy is unsure at this time if they would like Hospice services. SW explained that pt could get to [facility] and then they could decide from there if Hospice was needed. Rossy feels like this would be a good plan. SW updated palliative care MANAGER PRICING who will updated Hospice. SW had not heard back from jennyfer Roman. SW placed a call again to jennyfer Blair. Rossy states she has spoken with Jessie, but Jessie will not be able to get back to SW until she gets off of work. Paperwork in the chart. SW will continue to follow. Assessment:Pt to benefit from SNF. Plan: [facility] has accepted pt under her Medicaid. Pt will need to pay $1,022.72 participate fee upfront to facility. Family aware and SW awaiting a call back from jennyfer Roman. Paperwork in the chart. SW will continue to follow. MELVI Pace
--- NOTE | 2016-03-27 13:56 | NUR ---
Decreased LOC Pt found with blood on her hands and in her mouth, only answering questions with nods or head shakes. Tissue flap noted on roof of mouth, bleeding minimally. Resident in room to assess. Per resident, this is a chronic known condition due to poorly fitting dentures. Difficult to assess O2 status d/t thick/long fingernails. O2 sats bouncing around, 100% on RA at one point. Currently in mid on 3L oxymask. Will continue to watch LOC per hospitalist assessment. Pt alert enough to request BSC, able to transfer 1PA, otherwise resting in bed. Frequent O2 spot checks. Addendum: 03/27/16 at 1449 by MARINA CEDILLO RN Pt now back to baseline mentally. Alert and restless, occasionally yelling for things like water. Now requesting trilogy machine. RT aware. O2 sats stable mid .
--- NOTE | 2016-03-27 14:22 | NUR ---
Palliative care note D/A: Dr. Persaud discussed with pt dtkraig Blair last night in regards to possible Hospice while at SNF. Request was to set up Hospice info visit for today. Phone call to Cherie at [facility] who notes that they can see pt family today at 1300. Discuss with Jessie OGDEN dcp who notes that she is calling dtr Rossy today in relation to dc option of [facility] and financial out of pocket and will ask Rossy about Hospice and an info visit. Cherie to hold 1300 for pt while team awaits news from family regarding willingness to use Hospice. Cherie indicates that family was considering Hospice in fall of 2015 and declined, in favor of home health. Jessie later reports that family is not ready to hear in regards to Hospice at this time. Pt to go to SNF without Hospice, family voicing willingness to consider discussion with Hospice in about one week time. Have left message for Cherie to indicate cancellation of todays info visit for 1300 and to request that agency call family in about one weeks time to discuss potential use of Hospice. Work progressing on dc for today. P: Due to dc for today, palliative care may not see pt today. Francisca FLORES, CCM
--- NOTE | 2016-03-27 16:01 | NUR ---
Social Work-readiness for discharge: Data:EMR reviewed. VICKEY was able to get in touch with pt's daughter Jessie [phone] or [phone] to discuss finances. Jessie understands that pt's only option for discharge is to go to SNF. VICKEY explained that [facility] has denied pt and [facility] has accepted pt on Medicaid, but pt has to pay $1,022.72 a month for participation fee. Daughter Jessie states she need to speak with sister Rossy about this and would not be able to get to the bank in the next hour. VICKEY explained that pt is ready for discharge and that discharge will be happening tomorrow. Jessie states she will call VICKEY back with financial information. VICKEY updated Tarun at [facility].APS will need to be notified at discharge. Paperwork in the chart. VICKEY will continue to follow. Assessment:Pt who would benefit from SNF. Plan: Pt to discharge to [facility] with Dr. Keating to follow. Family to call VICKEY and pay $1,022.72 to [facility] tomorrow for Medicaid participation fee. APS will need to be notified at discharge. Paperwork in the chart. VICKEY will continue to follow. MELVI Pace
--- NOTE | 2016-03-27 16:42 | PCM.PNMED ---
Subjective Date of Service Mar 27, 2016 Subjective Patient is more alert and oriented today. Keeps asking what's going on and where are we taking her. Denies any pain. Exam Vital Signs Vital Sign - Last Date Time Temp Pulse Resp B/P Pulse Ox O2 Delivery O2 Flow Rate FiO2 03/27/16 15:52 80 03/27/16 13:28 36.4 24 154/92 97 OxyMask 6.00 03/25/16 04:37 89 Intake and Output 03/26/16 03/26/16 03/27/16 Cumulative From/Thru 15:00 23:00 07:00 03/13/16 14:55 - 03/27/16 05:09 Intake Total 400 ml 800 ml 98857 ml Output Total 375 ml 300 ml 85370 ml Balance 25 ml 500 ml 105 ml Intake Oral 400 ml 800 ml 13095 ml IV Total 10 ml Output Urine Total 375 ml 300 ml 77975 ml # Voids 2 1 46 # Bowel Movements 2 2 29 Exam General: Awake, no acute distress HENT: Atraumatic; sclera anicteric; mucus membranes moist Cardiac: Regular rate and rhythm; no murmurs appreciated Respiratory: Decrease breath sounds all gilman Abdomen: Soft, nontender, nondistended Extremities: No edema upper extremities; trace bilateral lower extremity edema at ankles Skin: Warm and dry IVs and Medications Medications Reviewed: Medications were reviewed in detail Lab and Diagnostics Result Diagram: 03/27/16 1338 03/25/16 0520 X-Rays, CTs and MRIs PROCEDURE: X-RAY CHEST ONE VIEW, PORTABLE ([id number]) IMPRESSION: 1. Appearance is most suggestive of asymmetrical pulmonary edema, improved from last exam. This could also represent resolving pneumonia. 2. Small left pleural effusion may be slightly smaller. Dictated by: Luis A Rivera M.D. on 03/13/2016 at 15:36 Approved by: Luis A Rivera M.D. on 03/13/2016 at 15:36 PROCEDURE: X-RAY CHEST ONE VIEW, PORTABLE ([id number]) IMPRESSION: Interval progression in bilateral, left greater than right, diffuse interstitial and airspace disease are differential considerations include pulmonary interstitial/alveolar edema secondary to CHF and/or diffuse inflammatory process. Recommend followup chest x-ray to ascertain resolution. Dictated by: Francesca Davis M.D. on 03/13/2016 at 21:16 Approved by: Francesca Davis M.D. on 03/13/2016 at 21:16 PROCEDURE: X-RAY CHEST ONE VIEW, PORTABLE ([id number]) INDICATIONS: dyspnea FINDINGS: Surgical changes and devices: Multiple right cervical surgical clips are noted. Lungs and pleura: There is improved aeration of the right lung when compared to study dated 03/13/16. As before, there is a sfgny-sa-xbatcsby left pleural effusion and consolidation at the left lung base. Mediastinum: Mediastinal contours appear normal. Heart size is normal. Bones and chest wall: No suspicious bony lesions. Overlying soft tissues appear unremarkable. IMPRESSION: 1. Improved aeration of the right lung. 2. Unchanged left basilar consolidation and pleural effusion. Dictated by: Danica John M.D. on 03/18/2016 at 12:33 Approved by: Danica John M.D. on 03/18/2016 at 12:33 12-lead ECG ECG Interpretation: Normal sinus rhythm with ventricular bigeminy, probable anterior infarct old, aside from the bigeminy and the EKG appears unchanged compared to 03/01/2016, there is also LVH with repolarizaton Time: 15:25 Interpreted by: ED physician Additional Diagnostics Interpretation & Diagnostics pH 7.372 pCO2 61 pO2 82.5 cHCO3, - (P) 34.6 cBase (B) 8.4 Assessment & Plan This is a 70-year-old female with past medical history of COPD oxygen dependent at home, chronic tobacco dependency, hypertension, diabetes, coronary artery disease, and recent hospitalization for pulmonary embolism in the end of November. Patient presented to hospital ER via EMS following worsening shortness of breath and progressive weakness. She was admitted for likely acute COPD exacerbation in addition to possible acute on chronic systolic CHF. 1. Acute on chronic systolic congestive heart failure, present on admission, resolved -Echocardiogram (10/23/2015): The ejection fraction is estimated to be 35-40%, which is decreased from her prior echo in 03/2015 with estimated EF of 45% -Pro-BNP 03/13: 15594 -Initial chest x-ray suggested bilateral pulmonary edema -Stop Lasix 20 mg IV q6h x 12 doses -Restart home Lasix 20 mg PO daily -Metolazone 5mg x3d completed -Increase Coreg--> 6.25 bidwm -Restart Amlodipine 10 mg PO qd for better BP control 2. Acute kidney injury, present on admission, active, probable chronic kidney disease at baseline stage III. Resolved - Possibly secondary to increased diuresis on admission, CHF exacerbation - Avoid nephrotoxic agents - Monitor with BMP 3. Possible acute exacerbation of COPD, present on admission, improving - Solu-Medrol 60 ml q6 h given initially, then converted to prednisone - Prednisone 40 PO stop date 03/25/16; Prednisone 20 mg PO starting 03/26/16. - Repeat chest x-ray 03/18: 1. Improved aeration of the right lung. 2. Unchanged left basilar consolidation and pleural effusion. - Respiratory therapy - Continue bronchodilators 4. Elevated troponin of unknown etiology, chronic, present on admission. -Troponin 0.043 on admission -Consistently elevated troponin -Pharm stress test 04/14/15 done showing evidence for a myocardial infarct affecting the inferior/inferoseptal wall without evidence for significant mika- infarct ischemia -No further cardiac workup 5. Diabetes mellitus, non-insulin using, chronic, present on admission, presumed stable -HbA1c 6.2% (01/17/2016) -Constant carbohydrate diet 6. Depression and anxiety, present on admission, ongoing -Continue Sertraline 100 mg PO daily and Lorazepam PRN 7. CAD s/p RCA stent placement, chronic, present on admission, stable -Continue statin (Atorvastatin 40 mg) -Continue isosorbide mononitrate 8. Seizure disorder, chronic, present on admission, presumed stable -Phenytoin level 11.0 -Keppra levels pending -Continue Keppra 1000mg BID and Phenytoin 300mg daily hs 9. Tobacco use disorder, chronic,present on admission - Nicotine patch 21mg daily Dispo: Planning to discharge tomorrow, 03/28/16 to [facility] with comfort. Patient family info: Jessie Mitchell (daughter) [phone], [phone].Rossy Daniel (daughter) [phone] GI Prophylaxis: Proton Pump Inhibitor VTE Prophylaxis: Sub-Q Heparin (Unfractionated) VTE Mechanical Devices: Intermittant Pneumatic CD Resuscitation Status: DNR/DNI:Do Not Resuscitate/Intubate Attending Statement The patient was seen and examined together with Dr. Gonzalez on 03/27/2015 and I agree with the history, exam and plan as outlined in the note above. RAFAEL GONZALEZ DO Mar 27, 2016 16:42 Quentin Dickerson MD Mar 28, 2016 10:09
--- NOTE | 2016-03-27 19:29 | PCM.PNPALL ---
Date of Service Mar 27, 2016 Date of Hospital Admission: Mar 13, 2016 at 18:35 Date of Palliative Consult: Mar 22, 2016 Palliative Care Recommendation This is a 70 yr old woman known previously to the palliative care team. She is readmitted with expected dyspnea in keeping with known heart disease and COPD. Records reviewed and discussion with medical team and CM/SS and with patient and daughter Rossy Summary of palliative recommendations: -Symptom management (Pain/other) Dyspnea-chronic I suspect getting close to baseline based on pt and daughter' s description We will try low-dose morphine to try and control anxiety and dyspnea Delirium-suspect some mild baseline dementia complicated by hospitalization, progressive weakness. She does not have capacity for complex decisions. she does state that she trusts Rossy and Jessie- daughters to be decision makers for her. Mentation and reasoning significantly improved today. Insight is still marginal Rossy would like ECF to be labeled as short term with a goal to improve and get back home to make this a palatable decision for her mother. She recognizes this most likely is a final move. ECF placement --depending on funding- would be easier on Rossy if in [facility]. -DPOA/Advanced Directives/POLST --prior POLST: DNR/DNI, limited. Reviewed today and goal is DNR/DNI and comfort pathway. Rossy is interested in hospice info visit. -Family/emotional support Rossy defines she has learned a lot over the last few months with her mothers decline. She will try and communicate this to her sister Jessie. Problems: End of Life Preferences pt prefers home; family not able to provide this. CM to assist. I believe patient is only partially decisional due to her inability to grasp severity of her disease and her care needs DNR/DNI and no feeding tube. Reviewed consideration for use of hospice for additional support particularly if she improves enough to be able to go home She is more accepting today than yesterday Goals of Care She would like to be more comfortable and is willing to try low dose MS. Disposition ECF Resuscitation Status Resuscitation Status: DNR/DNI:Do Not Resuscitate/Intubate POLST Updates/Changes Previous POLST?: Yes Antibiotics: Determine Use or Limitations Artificially Admin Nutrition: No Artifical Nutrition by Tube POLST Discussed with: Patient, Spouse/Other (daughter Rossy) POLST Review Outcome: No Change . Advanced Care Planning Address: Comfort care (comfort care but with a goal of continued strengthening but without acceleration of intensity of care and preferably without rehospitalization. Consider hospice involvement- info visit set up) Symptom management: Anxiety, Dyspnea Palliative Subjective Brief History 70 YO WITH SEVERE COPD, smoker, his of margaux colon CA ROXANA and new breast CA but not playing role in present illness. Hx of CAD with hx [place] and diastolic CHF, AFIB and hx of CVA, DM who was admitted with acute on chronic COPD exacerbation and CHF. She initially was agitated and impulsive and shows some signs of dementia/delirium-asking to go see her mother on the way home etc. She had been at home with her grandson as a caregiver but she is too high care need. Her daughter also describes agitation at home-asking for BIPAP/mask then removing it after 15 min and back and forth. Pt acknowledges ongoing weight loss and anorexia Patient/Family Concerns Inability to care for at home Subjective Patient angry at her daughter due to decision for ECF. She acknowledges need for 24/ 7 care. She acknowledges that her grandson would not be able to manage this but she continues to insist that she wants to go home. She also notes one reason is that she does not really want to stop smoking. She fears ECF would not allow her to smoke. She acknowledges ongoing severe shortness of breath. She also acknowledges feeling short of breath even when oximetry is in the mid 90s. She is interested in trial of medications to decrease her sense of dyspnea. She has chronic diarrhea ever since her colectomy for colon CA. She acknowledges weight loss and lack of appetite Palliative Performance Scale PPS Patient Status: Current PPS Ambulation: Mainly Sit/Lie PPS Activity: Unable to do most activity PPS Self-Care: Considerable assistance required PPS Intake: Normal or reduced, Minimal to sips PPS Conscious Level: Full or drowsey, +/- confusion Performace Scale: 50% ADLs ADL Patient Status: Current ADL Ambulation: Mainly Bed ADL Dressing: Mainly assistance ADL Feeding: Mainly assistance ADL Hygene/bathing: Mainly assistance ADL Transfers: Mainly assistance Responsive Patient Symptoms Pain (current): Mild Pain (minimum): None Pain (maximium): Moderate Tiredness/Fatigue: Moderate Nausea: Mild Depression: Mild Anxiety: Moderate Drowsiness/Sleepiness: Moderate Anorexia: Moderate Shortness of Breath: Moderate Objective Findings Exam Vital Sign - Last Date Time Temp Pulse Resp B/P Pulse Ox O2 Delivery O2 Flow Rate FiO2 03/27/16 16:51 37.0 80 22 146/75 95 OxyMask 4.00 03/25/16 04:37 89 Intake and Output 03/26/16 03/26/16 03/27/16 Cumulative From/Thru 15:00 23:00 07:00 03/13/16 14:55 - 03/27/16 05:09 Intake Total 400 ml 800 ml 92415 ml Output Total 375 ml 300 ml 30487 ml Balance 25 ml 500 ml 105 ml Intake Oral 400 ml 800 ml 44611 ml IV Total 10 ml Output Urine Total 375 ml 300 ml 41967 ml # Voids 2 1 46 # Bowel Movements 2 2 29 Objective Patient is up in her room walks with only a mild shuffling gait but significant flexion of lumbar spine between bed and couch. She is O2 mask on and does not appear any more dyspneic with walking then just sitting She is angry but able to reason- tends to take the conversation back to concerns for smoking General: Alert, Oriented, Person, Mild distress, Agitated (mild) HEENT: Atraumatic, EOMI Heart: Exam Unremarkable, Dysrhythmia Present (usually in 70's-afib but can decrease to 40's with bigemeny) Lungs: Diminished (markedly so with poor very wet cough) Abdomen: Soft Neuro: Follows Commands Extremities: No Edema Lab/Diagnostics Lab and Imaging results reviewed in detail in EMR. Patient/Family Conference Discussion/Goals of Care Discussion FAMILY UNDERSTANDING OF DISEASE: Patient has little insight into her requirements. Her main concern is her desire to continue smoking. She is willing to consider ECF in the short-term. In defining need to participate for restorative care-being her only option to improve strength. Reviewed benefit of not smoking. DISEASE PROGRESSION/EVIDENCE OF DECLINE: SYMPTOM BURDEN: GOALS: HOPES/WORRIES: She acknowledges that she does not want to but she also recognizes severity of her shortness of breath. FAMILY WISHES/VALUES: Do you want to be told truth about his illness, even if unpleasant? Does family want to know prognosis when it can be predicted, to better guide treatment decisions? What is quality of life for the patient: to be able to interact with their loved ones and friends, to travel, not to be bedbound, to be independent in taking care of themselves: Would patient choose quality of life over quantity of life? Would comfort care be more important than being awake and alert? If patient is no longer alert and aware because of their illness, would you choose comfort for them? Palliative Care counselled: Time spent Total time [45 ] minutes; >50% face to face with patient and/or family, providing counselling regarding plans and recommendations, and in care coordination with his/her medical teams. I also spent an additional [ ] minutes counseling for advanced care planning with the patient/the patients family/the surrogate decision maker. copies to: Emeterio Cadena MD, Deborah A MD Mar 27, 2016 19:28
[2016-03-27] MEDS: Insulin GLARgine 100 Unit/mL Syringe SUBQ SCH (20:26)
[2016-03-27] MEDS: Phenytoin 100 mg ER Capsule PO SCH (20:27)
[2016-03-28] VITALS (9 sets, daily range): BP systolic 114–168; BP diastolic 67–92; PULSE 41–65; RESP 20–24; O2SAT 90–98
--- NOTE | 2016-03-28 06:36 | NUR ---
Sinus Alberto,V-tach/Hypoglycemia Tele report: SB down to low 40s since 0200 while pt sound sleeping,with lots of PVCs per technical writer, night resident Reilly pagekaylyn and MD called back, no order given. 440Tele reports: 5 beats of v-tach, pt asymptomatic,sleeping. night resident Reilly paged and called back, no order given. 520 tele report: SB 30S sustain for 1-2 mins, junctional escape beats. Pt denies chest pain, SOB stable. Night resident Reilly notified, Mg, BMP ordered. Hypoglycemia 66 around 0340, 15gm glucose gel given, recheck BS 88, 113. Night resident Reilly notified, will notify day hospitalist per .
[2016-03-28] MEDS: Insulin LISPRO 300 Unit/3 mL Inj SUBQ SCH ×4 (08:00→21:37)
--- NOTE | 2016-03-28 08:50 | NUR ---
sleeping pt has been sleeping so far this shift trilogy refilled continuous pulse ox on- SAT 98%, HR 40-50's
[2016-03-28 10:26] LABS: Magnesium 1.8 mg/dL (1.6-2.6)
[2016-03-28] MEDS: levETIRAcetam 500 mg Tablet PO SCH ×2 (10:27→21:27)
[2016-03-28] MEDS: Isosorbide Mononitrate 30 mg ER24 Tablet PO SCH (10:28)
[2016-03-28] MEDS: predniSONE 20 mg Tablet PO SCH (10:28)
[2016-03-28] MEDS: Pantoprazole 40 mg ER24 Tablet PO SCH (10:29)
--- NOTE | 2016-03-28 10:52 | PCM.PALLBR ---
Palliative Care Recommendation This is a 70 yr old woman known previously to the palliative care team. She is readmitted with expected dyspnea in keeping with known heart disease and COPD. Summary of palliative recommendations: -Symptom management (Pain/other) Dyspnea-chronic: getting close to baseline based on pt and daughter's description. Used Trilogy overnight. Dr. Persaud ordered low-dose morphine (0.5-1mg po q 3 hours on 03/27/16) to try and control anxiety and dyspnea, however RNs did not use this prn overnight, but gave patient 975mg tylenol for 8/10 pain instead. Pt did seem to have some relief from this and was sleeping soundly on morning rounds. Delirium: Palliative care believes she likely has some mild baseline dementia complicated by hospitalization, progressive weakness. She does not have capacity for complex decisions. she does state that she trusts Rossy and Jessie- daughters to be decision makers for her. Baseline-line dementia: Mentation and reasoning significantly improved today. Insight is still marginal Palliative Care Discussion with patient: held 03/[address] Persaud. Patient is angry at her daughter due to decision for ECF. She acknowledges need for 24/ care. She acknowledges that her grandson would not be able to manage this but she continues to insist that she wants to go home. She also notes one reason is that she does not really want to stop smoking. She fears ECF would not allow her to smoke. She acknowledges ongoing severe shortness of breath. She also acknowledges feeling short of breath even when oximetry is in the mid 90s. She is interested in trial of medications to decrease her sense of dyspnea. She has chronic diarrhea ever since her colectomy for colon CA. She acknowledges weight loss and lack of appetite Disposition: Rossy would like ECF to be labeled as short term with a goal to improve and get back home to make this a palatable decision for her mother. She recognizes this most likely is a final move. ECF placement --depending on funding- would be easier on Rossy if in [facility]. Case Management is working on [facility] with Dr. Keating to follow. Please see their note for update. DPOA/Advanced Directives/POLST: 1. prior POLST: DNR/DNI, limited. Reviewed 03/27 and goal is DNR/DNI and comfort pathway. Rossy is interested in hospice info visit. 2. Patient has prior HCPOA paperwork in paper chart now: 1. Maru Mitchell (daughter) [phone], [phone]. 1st Alternate: Rossy Daniel ( daughter) [phone] Family/emotional support: Strong family support from two daughters Rossy and Radha. Rossy defines she has learned a lot over the last few months with her mothers decline. She will try and communicate this to her sister. Problems: End of Life Preferences pt prefers home; family not able to provide this. CM to assist. I believe patient is only partially decisional due to her inability to grasp severity of her disease and her care needs DNR/DNI and no feeding tube. Reviewed consideration for use of hospice for additional support particularly if she improves enough to be able to go home She is more accepting today than yesterday Goals of Care She would like to be more comfortable and is willing to try low dose MS. Disposition ECF Resuscitation Status Resuscitation Status: DNR/DNI:Do Not Resuscitate/Intubate POLST Updates/Changes Previous POLST?: Yes Antibiotics: Determine Use or Limitations Artificially Admin Nutrition: No Artifical Nutrition by Tube POLST Discussed with: Patient, Spouse/Other (daughter Rossy) POLST Review Outcome: No Change Total time 25 minutes; >50% face to face with patient and/or family, providing counselling regarding plans and recommendations, and in care coordination with his/her medical teams. copies to: Solomon Keating MD Palliative Brief Note Date of Service Mar 28, 2016 . Patient Identification: 70 yo lady with severe COPD oxygen and bipap dependent at home; active smoker, history of biliary colon CA and new breast CA but neither plays a role in this present illness. Hx of CAD with hx OH and chronic systolic CHF, AFIB and hx of CVA, DM type 2, depression, anxiety, seizure disorder, who was admitted with acute on chronic COPD exacerbation and CHF. Hospital Course: She initially was agitated and impulsive and shows some signs of dementia/delirium-asking to go see her mother on the way home etc. She had been at home with her grandson as a caregiver but she is too high care need for him now. Her daughter also describes agitation at home-asking for BIPAP/mask then removing it after 15 min and back and forth. She was given IV solu-medrol and then converted to oral prednisone. She has had gradually improvement in her breathing and ability to move in bed and around room. Today is Hospital Day 15. Adilene Lerma MD Mar 28, 2016 10:52
--- NOTE | 2016-03-28 11:31 | NUR ---
Social Work: Continued d/c planning Data: Pt is on day 15 of hospitalization. EMR reviewed. [employer] called pt's daughter Jessie at both phone numbers, and [phone]. Jessie did not answer, CITY [employer] has left two messages for her this morning. [employer] called pt's other daughter, Rossy at [phone] who states that Jessie is working this morning and will not be able to get in contact with this morning. She states that she spoke with Aniyah Olivia with [facility] [phone] and that she is working on calling other locations to see if there is a cheeper option. CITY MARSHAL tried to clarify what this meant and Rossy stated that Aniyah [place]. CITY MARSHAL stated that looking into other options is fine, but that pt needs to d/c today and that a check for $1,022.72 needs to be brought to [facility] [place]. Rossy states she does not have access to pt's finances. CITY MARSHAL asked if Rossy could contact her sister and obtain a check from her for this amount. Rossy states that she is at work until 3:00pm today. CITY MARSHAL told Rossy that she would call her at 3:00pm if Jessie has not yet gotten in contact with CITY MARSHAL. CITY MARSHAL called [facility] who states they have not heard from Jessie this morning either. CITY MARSHAL called Aniyah Yepezpablo with [facility] [phone], who states that she is not looking for other locations but that pt's daughter Rossy called her confused about why their is this participation fee is so high and that she was interested in a SNF located in [place] and Aniyah states she told pt's daughter she could call to see what their prices are like. CITY MARSHAL will continue to follow. Assessment: Pt requiring assistance at baseline. Plan: Pt will d/c to [facility] on her Medicaid with $1,022.72 participated fee. CITY MARSHAL will continue to attempt to call family members and request they bring the check to [facility] today, [place]. [employer] MARSHAL will continue to follow. MELVI Almonte
--- NOTE | 2016-03-28 16:17 | NUR ---
Social Work: Continued d/c planning Data: Pt is on day 15 of hospitalization. AXLE POLISHER called Aniyah Baker and left a message to inquire about the possibility of a housing credit for pt. AXLE POLISHER spoke with pt's daughter Rossy who is very upset about the situation stating that there must be a way to cover the costs. AXLE POLISHER assured her that this plan is covering the majority of the costs and that no other funding sources have been found. AXLE POLISHER spoke with Tarun at [facility] who states that Jessie has not called him but that Rossy did and she continued to be upset. Tarun states that Rossy was asking about financing options and he told her that is against their policy and that they require upfront payment. AXLE POLISHER left a message with Jessie requesting her to call AXLE POLISHER on 03/29/16 before 9:30am to let her know if payment on 03/29/16 is a possibility. AXLE POLISHER will continue to follow. Assessment: Pt on comfort care. Plan: Pt will likely d/c to [facility] on 03/30/15 pending payment by her daughter Jessie. AXLE POLISHER will continue to follow. MELVI Almonte
--- NOTE | 2016-03-28 17:28 | PCM.PNMED ---
Subjective Date of Service Mar 28, 2016 Subjective Patient is at her baseline. Alert and oriented today most of the day. Keeps asking what's going on and where are we taking her. Denies any pain. Exam Vital Signs Vital Sign - Last Date Time Temp Pulse Resp B/P Pulse Ox O2 Delivery O2 Flow Rate FiO2 03/28/16 16:50 Supplement Oxygen CPAP/BIPAP 03/28/16 16:17 36.9 61 22 114/73 97 4.00 03/25/16 04:37 89 Intake and Output 03/27/16 03/27/16 03/28/16 Cumulative From/Thru 15:00 23:00 07:00 03/13/16 14:55 - 03/28/16 06:50 Intake Total 318 ml 200 ml 55564 ml Output Total 610 ml 28141 ml Balance -292 ml 200 ml 13 ml Intake Oral 318 ml 200 ml 83282 ml IV Total 10 ml Output Urine Total 610 ml 26175 ml # Voids 5 1 52 # Bowel Movements 1 0 30 Exam General: Awake, no acute distress HENT: Atraumatic; sclera anicteric; mucus membranes moist Cardiac: Regular rate and rhythm; no murmurs appreciated Respiratory: Decrease breath sounds all gilman Abdomen: Soft, nontender, nondistended Extremities: No edema upper extremities; trace bilateral lower extremity edema at ankles Skin: Warm and dry Lab and Diagnostics Result Diagram: 03/27/16 1338 03/28/16 0955 X-Rays, CTs and MRIs PROCEDURE: X-RAY CHEST ONE VIEW, PORTABLE ([id number]) IMPRESSION: 1. Appearance is most suggestive of asymmetrical pulmonary edema, improved from last exam. This could also represent resolving pneumonia. 2. Small left pleural effusion may be slightly smaller. Dictated by: Luis A Rivera M.D. on 03/13/2016 at 15:36 Approved by: Luis A Rivrea M.D. on 03/13/2016 at 15:36 PROCEDURE: X-RAY CHEST ONE VIEW, PORTABLE ([id number]) IMPRESSION: Interval progression in bilateral, left greater than right, diffuse interstitial and airspace disease are differential considerations include pulmonary interstitial/alveolar edema secondary to CHF and/or diffuse inflammatory process. Recommend followup chest x-ray to ascertain resolution. Dictated by: Francesca Davis M.D. on 03/13/2016 at 21:16 Approved by: Francesca Davis M.D. on 03/13/2016 at 21:16 PROCEDURE: X-RAY CHEST ONE VIEW, PORTABLE ([id number]) INDICATIONS: dyspnea FINDINGS: Surgical changes and devices: Multiple right cervical surgical clips are noted. Lungs and pleura: There is improved aeration of the right lung when compared to study dated 03/13/16. As before, there is a [id number] left pleural effusion and consolidation at the left lung base. Mediastinum: Mediastinal contours appear normal. Heart size is normal. Bones and chest wall: No suspicious bony lesions. Overlying soft tissues appear unremarkable. IMPRESSION: 1. Improved aeration of the right lung. 2. Unchanged left basilar consolidation and pleural effusion. Dictated by: Danica John M.D. on 03/18/2016 at 12:33 Approved by: Danica John M.D. on 03/18/2016 at 12:33 12-lead ECG ECG Interpretation: Normal sinus rhythm with ventricular bigeminy, probable anterior infarct old, aside from the bigeminy and the EKG appears unchanged compared to 03/01/2016, there is also LVH with repolarizaton Time: 15:25 Interpreted by: ED physician Additional Diagnostics Interpretation & Diagnostics pH 7.372 pCO2 61 pO2 82.5 cHCO3, - (P) 34.6 cBase (B) 8.4 Assessment & Plan This is a 70-year-old female with past medical history of COPD oxygen dependent at home, chronic tobacco dependency, hypertension, diabetes, coronary artery disease, and recent hospitalization for pulmonary embolism in the end of November. Patient presented to hospital ER via EMS following worsening shortness of breath and progressive weakness. She was admitted for likely acute COPD exacerbation in addition to possible acute on chronic systolic CHF. 1. Acute on chronic systolic congestive heart failure, present on admission, resolved -Echocardiogram (10/23/2015): The ejection fraction is estimated to be 35-40%, which is decreased from her prior echo in 03/2015 with estimated EF of 45% -Pro-BNP 03/13: 86019 -Initial chest x-ray suggested bilateral pulmonary edema -Stop Lasix 20 mg IV q6h x 12 doses -Restart home Lasix 20 mg PO daily -Metolazone 5mg x3d completed -Increase Coreg--> 6.25 bidwm -Restart Amlodipine 10 mg PO qd for better BP control 2. Acute kidney injury, present on admission, active, probable chronic kidney disease at baseline stage III. Resolved - Possibly secondary to increased diuresis on admission, CHF exacerbation - Avoid nephrotoxic agents - Monitor with BMP 3. Possible acute exacerbation of COPD, present on admission, improving - Solu-Medrol 60 ml q6 h given initially, then converted to prednisone - Prednisone 40 PO stop date 03/25/16; Last day on Prednisone 20 mg PO. Start 10 mg tomorrow for 3 days - Repeat chest x-ray 03/18: 1. Improved aeration of the right lung. 2. Unchanged left basilar consolidation and pleural effusion. - Respiratory therapy - Continue bronchodilators 4. Elevated troponin of unknown etiology, chronic, present on admission. -Troponin 0.043 on admission -Consistently elevated troponin -Pharm stress test 04/14/15 done showing evidence for a myocardial infarct affecting the inferior/inferoseptal wall without evidence for significant mika- infarct ischemia -No further cardiac workup 5. Diabetes mellitus, non-insulin using, chronic, present on admission, presumed stable -HbA1c 6.2% (01/17/2016) -Constant carbohydrate diet 6. Depression and anxiety, present on admission, ongoing -Continue Sertraline 100 mg PO daily and Lorazepam PRN 7. CAD s/p RCA stent placement, chronic, present on admission, stable -Continue statin (Atorvastatin 40 mg) -Continue isosorbide mononitrate 8. Seizure disorder, chronic, present on admission, presumed stable -Phenytoin level 11.0 -Keppra levels pending -Continue Keppra 1000mg BID and Phenytoin 300mg daily hs 9. Tobacco use disorder, chronic,present on admission - Nicotine patch 21mg daily Dispo: Pending on family's ability to provide payment for C w/comfort. Patient family info: Jessie Mitchell (daughter) [phone], [phone].Rossy Daniel (daughter) [phone] GI Prophylaxis: Proton Pump Inhibitor VTE Prophylaxis: Sub-Q Heparin (Unfractionated) VTE Mechanical Devices: Venous Foot Pump Resuscitation Status: DNR/DNI:Do Not Resuscitate/Intubate Attending Statement The patient was seen and examined together with Dr. Gonzalez on 03/28/2016 and I agree with the history, exam and plan as outlined in the note above. RAFAEL GONZALEZ DO Mar 28, 2016 17:28 Quentin Dickerson MD Mar 29, 2016 10:02
[2016-03-28] MEDS: Potassium Chloride 20 mEq SR Tablet PO SCH (18:13)
[2016-03-28] MEDS: Phenytoin 100 mg ER Capsule PO SCH (21:28)
[2016-03-28] MEDS: Insulin GLARgine 100 Unit/mL Syringe SUBQ SCH (21:33)
[2016-03-29] VITALS (7 sets, daily range): BP systolic 138–153; BP diastolic 63–78; PULSE 63–74; RESP 21–24; O2SAT 93–96
[2016-03-29] MEDS: Pantoprazole 40 mg ER24 Tablet PO SCH (07:49)
[2016-03-29] MEDS: levETIRAcetam 500 mg Tablet PO SCH (07:50)
[2016-03-29] MEDS: Potassium Chloride 20 mEq SR Tablet PO SCH (07:52)
[2016-03-29] MEDS: Isosorbide Mononitrate 30 mg ER24 Tablet PO SCH (07:53)
[2016-03-29] MEDS: Insulin LISPRO 300 Unit/3 mL Inj SUBQ SCH ×2 (07:55→12:03)
[2016-03-29] MEDS ORDERED: predniSONE 10 mg Tablet PO SCH (08:00)
--- NOTE | 2016-03-29 11:04 | PCM.PALLBR ---
Palliative Care Recommendation This is a 70 yr old woman known previously to the palliative care team. She is readmitted with expected dyspnea in keeping with known heart disease and COPD. Summary of palliative recommendations: -Symptom management (Pain/other) Dyspnea-chronic: getting close to baseline. Dr. Persaud ordered low-dose morphine (0.5-1mg po q 3 hours on 03/27/16) to try and control anxiety and dyspnea, however RNs have not used this prn order at all in last 48 hours, so, Dr. Lerma will discontinue it today (03/29). Delirium: Palliative care believes she likely has some mild baseline dementia complicated by hospitalization, progressive weakness. She does not have capacity for complex decisions. she does state that she trusts Rossy and Jessie- daughters to be decision makers for her. Baseline-line dementia: Mentation and reasoning significantly improved today. Insight is still marginal Palliative Care Discussion with patient: held 03/[address] Persaud. Patient is angry at her daughter due to decision for ECF. She acknowledges need for care. She acknowledges that her grandson would not be able to manage this but she continues to insist that she wants to go home. She also notes one reason is that she does not really want to stop smoking. She fears ECF would not allow her to smoke. She acknowledges ongoing severe shortness of breath. She also acknowledges feeling short of breath even when oximetry is in the mid 90s. She is interested in trial of medications to decrease her sense of dyspnea. She has chronic diarrhea ever since her colectomy for colon CA. She acknowledges weight loss and lack of appetite Disposition: Rossy would like ECF to be labeled as short term with a goal to improve and get back home to make this a palatable decision for her mother. She recognizes this most likely is a final move. ECF placement --depending on funding- would be easier on Rossy if in [facility]. Case Management is working on [facility] with Dr. Keating to follow. Please see their note for update. DPOA/Advanced Directives/POLST: 1. prior POLST: DNR/DNI, limited. Reviewed 03/27 and goal is DNR/DNI and comfort pathway. Rossy is interested in hospice info visit. 2. Patient has prior HCPOA paperwork in paper chart now: 1. Maru Mitchell (daughter) [phone], [phone]. 1st Alternate: Rossy Daniel ( daughter) [phone] Family/emotional support: Strong family support from two daughters Rossy and Radha. The Palliative Care Team will sign off case today as goals are clear and no further symptom management needed from us. Thank you for the consult. Problems: End of Life Preferences pt prefers home; family not able to provide this. CM to assist. I believe patient is only partially decisional due to her inability to grasp severity of her disease and her care needs DNR/DNI and no feeding tube. Reviewed consideration for use of hospice for additional support particularly if she improves enough to be able to go home She is more accepting today than yesterday Goals of Care She would like to be more comfortable and is willing to try low dose MS. Disposition ECF Resuscitation Status Resuscitation Status: DNR/DNI:Do Not Resuscitate/Intubate POLST Updates/Changes Previous POLST?: Yes Antibiotics: Determine Use or Limitations Artificially Admin Nutrition: No Artifical Nutrition by Tube POLST Discussed with: Patient, Spouse/Other (daughter Rossy) POLST Review Outcome: No Change Total time 15 minutes; >50% face to face with patient and/or family, providing counselling regarding plans and recommendations, and in care coordination with his/her medical teams. Palliative Brief Note Date of Service Mar 29, 2016 . Patient Identification: 70 yo lady with severe COPD oxygen and bipap dependent at home; active smoker, history of biliary colon CA and new breast CA but neither plays a role in this present illness. Hx of CAD with hx CA and chronic systolic CHF, AFIB and hx of CVA, DM type 2, depression, anxiety, seizure disorder, who was admitted with acute on chronic COPD exacerbation and CHF. Hospital Course: She initially was agitated and impulsive and shows some signs of dementia/delirium-asking to go see her mother on the way home etc. She had been at home with her grandson as a caregiver but she is too high care need for him now. Her daughter also describes agitation at home-asking for BIPAP/mask then removing it after 15 min and back and forth. She was given IV solu-medrol and then converted to oral prednisone. She has had gradually improvement in her breathing and ability to move in bed and around room. Today is Hospital Day 16. Adilene Lerma MD Mar 29, 2016 11:04
--- NOTE | 2016-03-29 13:53 | NUR ---
Case Management: Call from Jaleesa CANO who asked that I call daughter, Jessie, as she requested a call back from . Spoke with Jessie who said they do not have money for SNF. She reports that she has been kept in the dark about plan of care. She says she feels 'like I have no choices.' Explained that the DC order has not been written yet but it discussion with the MD, the plan is to DC patient today. Explained that once DC order is written that the account would need to be switched to a private pay as [facility] has denied continued stay and she no longer meets medical necessity. Jessie then hung up on this senior copywriter. Will continue to work with MILLED LUMBER GRADER regarding family issues and dc planning. CPerryRNCCM>
--- NOTE | 2016-03-29 14:06 | NUR ---
KEITH signed MELVI Almonte
[2016-03-29] MEDS ORDERED: PRE10 PO (14:35)
--- NOTE | 2016-03-29 14:41 | PCM.DIMED ---
Zayda Horner DO 03/29/16 1431: Discharge Instructions Date of Service Mar 29, 2016 Dates of Hospitalization Mar 13, 2016 at 18:35 Discharge Diagnosis Discharge Diagnosis 1. Acute on chronic systolic congestive heart failure, present on admission, resolved 2. Acute kidney injury, present on admission, active, probable chronic kidney disease at baseline stage III. Resolved 3. Possible acute exacerbation of COPD, present on admission, improving 4. Elevated troponin of unknown etiology, chronic. Presumed stable 5. Diabetes mellitus, non-insulin using, chronic, present on admission, presumed stable 6. Depression and anxiety, present on admission, ongoing; presumed stable 7. CAD s/p RCA stent placement, chronic, present on admission, stable 8. Seizure disorder, chronic, present on admission, presumed stable 9. Tobacco use disorder, chronic,present on admission. Ongoing Medication Instructions All of your medications have been continued at this time. You are transitioning to comfort care, so many of your medications may change once you reach your living facility. Please discuss with your new provider each of your medications , as some may no longer be indicated. Diet No restrictions Activity No restrictions Call your provider Fever or Chills, Shortness of breath, Bleeding, Chest pain, Excessive diarrhea, Weakness (unilateral) Patient Instructions - Discuss and decide with your new provider your medication list - Discuss your symptoms and what would make you more comfortable - Continue to enjoy life, and let your new care team help you do that Follow-up plan - You are being transferred to a facility to initiate comfort care. This care plan will help you have the highest quality of life possible given your current health condition. - Please discuss with your new team and questions or concerns that you may have regarding your health care and comfort Follow-up Provider: [facility] Follow-up with PCP in: Other (Transfer; comfort care) Quentin Dickerson MD 03/30/16 0931: Zayda Horner DO Mar 29, 2016 14:31 Quentin Dickerson MD Mar 30, 2016 09:31
--- NOTE | 2016-03-29 15:36 | NUR ---
Social Work: Discharge Data: Pt is on day 16 of hospitalization. D/C orders are in. Pt's daughter, Jessie went to [facility] today and had questions answered, she then provided the check for $1,022.72. [facility] can take her today. Transportation has been set up fro 4:15pm. MD JEROME, ALVIN, and pt and family notified of this, all updated and agreeable to plan. No further SECURITY COORDINATOR needs at this time. Assessment: Pt who has caregiving at baseline. Plan: Pt will d/c to [facility] at 4:15pm today. MD JEROME, ALVIN, and pt and family notified of this, all updated and agreeable to plan. No further SECURITY COORDINATOR needs at this time. MELVI Almonte
--- NOTE | 2016-03-29 16:50 | NUR ---
Discharge Pt d/c to [facility] at 1640 via [place] by transporter from . Pt denied having pain. VSS. IV d/c prior to leaving. All personal belonings left with pt and or grandson. Grandson transported the trilogy machine. Report called to nurse Vasques at .
--- NOTE | 2016-03-29 20:04 | PCM.DC.MED ---
Discharge Summary Date of Service Mar 29, 2016 Dates of Hospitalization Date of Hospital Admission Mar 13, 2016 at 18:35 Date of Discharge: Mar 29, 2016 Providers: Admitting Physician: Nataly Hayes MD Primary Care Physician: Emeterio Cadena MD Attending Physician: Nataly Hayes MD Diagnosis at Time of Discharge Diagnosis at Time of Discharge 1. Acute on chronic systolic congestive heart failure, present on admission, resolved 2. Acute kidney injury, present on admission, active, probable chronic kidney disease at baseline stage III. Resolved 3. Possible acute exacerbation of COPD, present on admission, improving 4. Elevated troponin of unknown etiology, chronic. Presumed stable 5. Diabetes mellitus, non-insulin using, chronic, present on admission, presumed stable 6. Depression and anxiety, present on admission, ongoing; presumed stable 7. CAD s/p RCA stent placement, chronic, present on admission, stable 8. Seizure disorder, chronic, present on admission, presumed stable 9. Tobacco use disorder, chronic,present on admission. Ongoing Procedures XRay, CTs & MRIs PROCEDURE: X-RAY CHEST ONE VIEW, PORTABLE ([id number]) IMPRESSION: 1. Appearance is most suggestive of asymmetrical pulmonary edema, improved from last exam. This could also represent resolving pneumonia. 2. Small left pleural effusion may be slightly smaller. Dictated by: Luis A Rivera M.D. on 03/13/2016 at 15:36 Approved by: Luis A Rivera M.D. on 03/13/2016 at 15:36 PROCEDURE: X-RAY CHEST ONE VIEW, PORTABLE ([id number]) IMPRESSION: Interval progression in bilateral, left greater than right, diffuse interstitial and airspace disease are differential considerations include pulmonary interstitial/alveolar edema secondary to CHF and/or diffuse inflammatory process. Recommend followup chest x-ray to ascertain resolution. Dictated by: Francesca Davis M.D. on 03/13/2016 at 21:16 Approved by: Francesca Davis M.D. on 03/13/2016 at 21:16 PROCEDURE: X-RAY CHEST ONE VIEW, PORTABLE ([id number]) INDICATIONS: dyspnea FINDINGS: Surgical changes and devices: Multiple right cervical surgical clips are noted. Lungs and pleura: There is improved aeration of the right lung when compared to study dated 03/13/16. As before, there is a gulwh-tk-wvsclptl left pleural effusion and consolidation at the left lung base. Mediastinum: Mediastinal contours appear normal. Heart size is normal. Bones and chest wall: No suspicious bony lesions. Overlying soft tissues appear unremarkable. IMPRESSION: 1. Improved aeration of the right lung. 2. Unchanged left basilar consolidation and pleural effusion. Dictated by: Danica John M.D. on 03/18/2016 at 12:33 Approved by: Danica John M.D. on 03/18/2016 at 12:33 ECG 12 Lead ECG Interpretation: Normal sinus rhythm with ventricular bigeminy, probable anterior infarct old, aside from the bigeminy and the EKG appears unchanged compared to 03/01/2016, there is also LVH with repolarizaton Time: 15:25 Interpreted by: ED physician Other Diagnostics Interpretation & Diagnostics pH 7.372 pCO2 61 pO2 82.5 cHCO3, - (P) 34.6 cBase (B) 8.4 Brief History Per Admitting Physician: Nataly Hayes MD This 70 yr old woman was seen by palliative care in December at which time she stated awareness of her terminal illness, with an expectation of 4-6 months to live. She was open to hospice but her family was not and so she went home with her grandson and a Trilogy machine. She now returns SOB. Palliative Care is asked to help this family plan for the patient's end of life transition. H&P per hospitalist on admit 03/14: 70-year-old female with known CHF and COPD and dementia, DO NOT RESUSCITATE/ prior palliative care plan but family unable to care for her at this point, worsening of shortness of breath. Per ER doc, bronchospastic in the ER, she had home meds this am. There is questionable compliance with HOME lasix, duo nebs, Trilogy. ongoing smoking. Oxygen dependent at home. On 03/01/2016 she was evaluated by ER, due to increasing fluid in legs and sob/desat at home 80%, s/p lasix 20 iv x 1, discharged home w/ lasix 20 PO. however, since that time, Per grandson, swelling of legs worse. She has refused SNF in past, generally wants to be at home as long as possible w/ known severe morbidity. She does not endorse pneumonia/bronchitis symptoms of phelgm.urinary freq w/ lasix. Prior admission 12/2015 was attributed to pneumonia/COPD exacerbation w/ probable CHF. Hospital Course This is a 70-year-old female with past medical history of COPD oxygen dependent at home, chronic tobacco dependency, hypertension, diabetes, coronary artery disease, and recent hospitalization for pulmonary embolism in the end of November. Patient presented to hospital ER via EMS following worsening shortness of breath and progressive weakness. She was admitted for acute COPD exacerbation in addition to possible acute on chronic systolic CHF. On the hospital day # 16 patient was discharged to [facility] with Dr. Keating to follow. 1. Acute on chronic systolic congestive heart failure, present on admission, resolved -Echocardiogram (10/23/2015): The ejection fraction is estimated to be 35-40%, which is decreased from her prior echo in 03/2015 with estimated EF of 45% -Pro-BNP 03/13: 15106 -Initial chest x-ray suggested bilateral pulmonary edema -Stop Lasix 20 mg IV q6h x 12 doses -Restart home Lasix 20 mg PO daily -Metolazone 5mg x3d completed -Increase Coreg--> 6.25 bidwm -Restart Amlodipine 10 mg PO qd for better BP control 2. Acute kidney injury, present on admission, active, probable chronic kidney disease at baseline stage III. Resolved - Possibly secondary to increased diuresis on admission, CHF exacerbation - Avoid nephrotoxic agents - Monitor with BMP 3. Possible acute exacerbation of COPD, present on admission, improving - Solu-Medrol 60 ml q6 h given initially, then converted to prednisone - Prednisone 40 PO stop date 03/25/16; Last day on Prednisone 20 mg PO. Start 10 mg tomorrow for 3 days - Repeat chest x-ray 03/18: 1. Improved aeration of the right lung. 2. Unchanged left basilar consolidation and pleural effusion. - Respiratory therapy - Continue bronchodilators 4. Elevated troponin of unknown etiology, chronic, present on admission. -Troponin 0.043 on admission -Consistently elevated troponin -Pharm stress test 04/14/15 done showing evidence for a myocardial infarct affecting the inferior/inferoseptal wall without evidence for significant mika- infarct ischemia -No further cardiac workup 5. Diabetes mellitus, non-insulin using, chronic, present on admission, presumed stable -HbA1c 6.2% (01/17/2016) -Constant carbohydrate diet 6. Depression and anxiety, present on admission, ongoing -Continue Sertraline 100 mg PO daily and Lorazepam PRN 7. CAD s/p RCA stent placement, chronic, present on admission, stable -Continue statin (Atorvastatin 40 mg) -Continue isosorbide mononitrate 8. Seizure disorder, chronic, present on admission, presumed stable -Phenytoin level 11.0 -Keppra levels pending -Continue Keppra 1000mg BID and Phenytoin 300mg daily hs 9. Tobacco use disorder, chronic,present on admission - Nicotine patch 21mg daily Dispo: C w/comfort. Patient family info: Jessie Mitchell (daughter) [phone], [phone].Rossy Daniel (daughter) [phone] Exam Vital Signs (Last) Date Time Temp Pulse Resp B/P Pulse Ox O2 Delivery O2 Flow Rate FiO2 03/29/16 13:27 36.4 74 22 143/63 93 Trilogy 4.00 03/25/16 04:37 89 Exam General: Sleepy, mild distress from labored breathing Cardiac: Regular rate and rhythm; no murmurs appreciated Respiratory: Decrease breath sounds all gilman; no crackles appreciated; mild bilateral upper wheeze Abdomen: Soft, nontender, nondistended Extremities: No edema upper extremities; trace bilateral lower extremity edema at ankles Psych: Some interaction; limited insight and judgment Test 03/13/16 15:35 03/14/16 07:46 03/14/16 11:41 03/14/16 14:45 Pro-B-Type Natriuretic Peptide 39582ny/mL (0-301) Procalcitonin 0.10ng/mL (See Comment) Hold [place] Top Tube Received (Received) Urine Color Yellow (YELLOW) Urine Appearance Hazy (CLEAR,HAZY) Urine pH 5.5 (5.0-8.0) Urine Specific [place] 1.030 (1.003-1.035) Urine Protein 100mg/dL (NEG,TRACE) Urine Glucose (UA) Negativemg/dL (NEGATIVE) Urine Ketones Negativemg/dL (NEGATIVE) Urine Occult Blood Trace (NEGATIVE) Urine Nitrite Negative (NEGATIVE) Urine Bilirubin Negative (NEGATIVE) Urine Urobilinogen Normalmg/dL (NORMAL) Urine Leukocyte Esterase Negative (NEGATIVE) Urine RBC 0-2/hpf (0-2) Urine WBC 0-5/hpf (0-5) Urine Epithelial Cells Occasional/hpf (NONE-MOD) Urine Crystals None seen (NONE SEEN) Urine Bacteria Moderate/hpf (NONE-FEW) Urine Hyaline Casts None/lpf (NONE) Urine Granular Casts None seen (NONE SEEN) Urine Waxy Casts None seen (NONE SEEN) Urine Red Blood Cell Casts None seen (NONE SEEN) Urine White Blood Cell Casts None seen (NONE SEEN) Urine Mucus None seen (None Seen) Urine Trichomonas None seen (NONE SEEN) Urine Yeast None (NONE SEEN) Urinalysis Comment None Urine Culture Reflexed Indicated Troponin T 0.042ug/L (0.0-0.011) Phenytoin (Dilantin) Level 11.0uG/mL (10.0-20.0) Test 03/15/16 05:07 03/20/16 08:58 03/23/16 05:10 03/25/16 05:20 Levetiracetam (Keppra) Level 63.0ug/mL (10.0-40.0) Lactic Acid Level 1.8mmol/L (0.4-2.0) Total Bilirubin 0.2mg/dL (0.0-1.2) Aspartate Amino Transf (AST/SGOT) 34U/L (0-50) Alanine Aminotransferase (ALT/SGPT) 27U/L (0-32) Alkaline Phosphatase 107U/L (25-165) Total Protein 5.1g/dL (6.4-8.4) Albumin 2.8g/dL (3.4-5.0) White Blood Count 6.0th/mm3 (3.8-10.1) Red Blood Count 3.74mil/mm3 (3.90-5.20) Mean Corpuscular Volume 82.6fL (81-100) Mean Corpuscular Hemoglobin 21.9pg (27.0-35.0) Mean Corpuscular Hemoglobin Concent 26.5% (32.0-37.0) Red Cell Distribution Width 17.0% (12.3-15.4) Platelet Count 158bil/L (150-400) Neutrophils (%) (Auto) 67.3% (40-74) Lymphocytes (%) (Auto) 21.3% (14-46) Monocytes (%) (Auto) 10.6% (4-12) Eosinophils (%) (Auto) 0.3% (0-5) Basophils (%) (Auto) 0.2% (0-3) Phosphorus Level 4.6mg/dL (2.5-4.9) Test 03/27/16 13:38 03/28/16 09:55 Hemoglobin 8.7g/dL (12.0-15.6) Hematocrit 32.2% (35.0-46.0) Sodium Level 143mEq/L (134-144) Potassium Level 4.5mEq/L (3.5-5.2) Chloride Level 103mEq/L (97-108) Carbon Dioxide Level 30mmol/L (18-29) Blood Urea Nitrogen 31mg/dL (8-27) Creatinine 1.13mg/dL (0.57-1.00) Estimat Glomerular Filtration Rate 68mL/min (>59) Glucose Level 63mg/dL (60-99) Calcium Level 7.8mg/dL (8.5-10.1) Magnesium Level 1.8mg/dL (1.6-2.6) Discharge Medications Discharge Medications Amlodipine (Amlodipine) 10 Mg Tablet 10 MG PO DAILY (Reported) Anastrozole (Anastrozole) 1 Mg Tablet 1 MG PO DAILY (Reported) Apixaban (Eliquis) 2.5 Mg Tablet 2.5 MG PO BID Prescribed by: RAISA MESA MD Aspirin (Aspirin) 81 Mg Tablet 81 MG PO DAILY (Reported) Calcium Carbonate/Vitamin D3 (Calcium 500 + Vit D 400 Tablet) 1 Each Tablet 1 EACH PO BID (Reported) Cholecalciferol (Vitamin D3) (Vitamin D) 1,000 Unit Tablet 1,000 UNIT PO DAILY ( Reported) Cyanocobalamin (Vitamin B-12) (Vitamin B-12) 250 Mcg Lozenge 250 MCG PO DAILY ( Reported) Fluticasone/Salmeterol (Advair Hfa 115-21 Mcg Inhaler) 12 Gm Hfa.aer.ad 2 PUFF INH BID (Reported) Furosemide (Furosemide) 20 Mg Tab 20 MG PO DAILY Prescribed by: RUDDY COVINGTON MD Isosorbide MN ER (Isosorbide MN ER) 30 Mg Tab.er.24h 30 MG PO DAILY (Reported) Levetiracetam (Levetiracetam) 1,000 Mg Tablet 1,000 MG PO BID (Reported) Nicotine 7 mg/24 hr Patch (Nicotine 7 mg/24 hr Patch) 1 Each Patch.td24 1 PATCH TOPICAL DAILY Prescribed by: ROBERTO RODRÍGUEZ MD Omeprazole (Omeprazole) 20 Mg Capsule.dr 20 MG PO DAILYWD Prescribed by: ROBERTO RODRÍGUEZ MD Phenytoin Sodium Extended (Phenytoin Sodium Extended) 100 Mg Capsule 300 MG PO HS (Reported) Potassium Chloride (Potassium Chloride) 10 Meq Capsule.er 10 MEQ PO DAILY TAKE WITH FOOD Prescribed by: RUDDY COVINGTON MD Prednisone (PredniSONE) 10 Mg Tablet 10 MG PO 08 Prescribed by: CRISTAL WEBB DO Rosuvastatin Calcium (Rosuvastatin Calcium) 40 Mg Tablet 40 MG PO HS (Reported) Sertraline HCl (Sertraline) 100 Mg Tablet 100 MG PO DAILY (Reported) As needed Albuterol Neb Soln (Albuterol Neb Soln) 2.5 Mg/3 Ml Vial.neb 2.5 MG INH q2 hours PRN PRN For Shortness of Breath (Reported) Albuterol/Ipratropium (Combivent Respimat Inhal [place]) 120 Spr/4 Gm Inhaler 1 PUFF IH QID PRN PRN For Shortness of Breath (Reported) Alprazolam (Alprazolam) 0.25 Mg Tablet 0.25 MG PO HS PRN PRN For Anxiety Prescribed by: RAISA MESA MD Ibuprofen (Ibuprofen) 600 Mg Tablet 600 MG PO TID PRN PRN For Pain (Reported) Loperamide (Loperamide) 2 Mg Capsule 2-4 MG PO Q4H PRN PRN For Diarrhea or Loose Stool (Reported) Lorazepam (Lorazepam) 0.5 Mg Tablet 0.25-0.5 MG PO q12 hours PRN PRN For Anxiety (Reported) Nitroglycerin SL (Nitrostat) 0.4 Mg Tab.subl 0.4 MG SL Q5MIN PRN PRN For Chest Pain (Reported) Saliva Substitution Combo No.9 (Biotene) 1,000 Ml Mouthwash 1,000 ML MM DAILY PRN PRN dry mouth (Reported) Additional med instructions All of your medications have been continued at this time. You are transitioning to comfort care, so many of your medications may change once you reach your living facility. Please discuss with your new provider each of your medications , as some may no longer be indicated. Followup Plan Follow-up plan - You are being transferred to a facility to initiate comfort care. This care plan will help you have the highest quality of life possible given your current health condition. - Please discuss with your new team and questions or concerns that you may have regarding your health care and comfort Discharge Diet: No restrictions Discharge Activity: No restrictions Patient Instructions - Discuss and decide with your new provider your medication list - Discuss your symptoms and what would make you more comfortable - Continue to enjoy life, and let your new care team help you do that Follow-up Provider: [facility] Follow-up with PCP in: Other (Transfer; comfort care) Time spent 45 minutes Attending Statement The patient was seen and examined together with Dr. Mesa on 03/29/2016 and I agree with the history, exam and plan as outlined in the note above. RAFAEL MESA DO Mar 29, 2016 20:04 Quentin Dickerson MD Mar 30, 2016 09:30
== END 2016-03-29 16:43 | DRG 291 ==
LOC: SED 14:48 → MPC 18:35
PROVIDERS: ADMIT Urology; ATTEND Urology
PROC: 4A033R1 Measurement of Arterial Saturation, Peripheral, Percutaneous Approach (ICD-10-PCS; principal; 2016-03-13)
DX: I50.23 Acute on chronic systolic (congestive) heart failure (principal); J96.21 Acute and chronic respiratory failure with hypoxia; G93.41 Metabolic encephalopathy; N17.9 Acute kidney failure, unspecified; J44.1 Chronic obstructive pulmonary disease with (acute) exacerbation; I13.0 Hypertensive heart and chronic kidney disease with heart failure and stage 1 through stage 4 chronic kidney disease, or unspecified chronic kidney disease; Z79.82 Long term (current) use of aspirin; E11.9 Type 2 diabetes mellitus without complications; Z95.5 Presence of coronary angioplasty implant and graft; E78.5 Hyperlipidemia, unspecified; F17.210 Nicotine dependence, cigarettes, uncomplicated; I25.2 Old myocardial infarction; G40.909 Epilepsy, unspecified, not intractable, without status epilepticus; R45.850 Homicidal ideations; F32.9 Major depressive disorder, single episode, unspecified; F41.9 Anxiety disorder, unspecified; N18.3 Chronic kidney disease, stage 3 (moderate)

== ENCOUNTER 2016-04-06 14:29 | Inpatient (IN) | payer MEDICARE, MEDICAID ==
[2016-04-06] VITALS (7 sets, daily range): BP systolic 155–178; BP diastolic 59–90; PULSE 60–84; RESP 20–30; O2SAT 94–97
[~2016-04-06] VITALS: Ht 152.4 cm; Wt 49.8 kg
[2016-04-06] MEDS ORDERED: Ondansetron 2 mg/mL 2 mL Inj IVPUSH PRN (15:35)
[2016-04-06] MEDS ORDERED: Albuterol-Ipratropium 3 mL Inhalation Solution NEB PRN (15:35)
[2016-04-06] MEDS ORDERED: MethylprednisoLONE Sodium Succinate 40 mg/mL Inj IVPUSH ONE (15:35)
[2016-04-06] MEDS ORDERED: Alum-Mag Hydrox-Simeth 30 mL Suspension PO PRN (15:35)
[2016-04-06] MEDS ORDERED: Polyethylene Glycol (PEG) 17 Gm Powder PO PRN (15:35)
[2016-04-06] MEDS ORDERED: Furosemide 10 mg/mL 4 mL Inj IVPUSH ONE (15:35)
[2016-04-06] MEDS: Pantoprazole 20 mg ER24 Tablet PO SCH (16:03)
[2016-04-06] MEDS ORDERED: SALIVA SUBSTITUTE MUC_MEMBRM PRN (16:05)
[2016-04-06] MEDS ORDERED: hydrALAZINE 20 mg/mL Inj IV PRN (16:15)
--- NOTE | 2016-04-06 16:15 | PCM.HPMED ---
Subjective Date of Service Apr 06, 2016 Primary Provider: Admitting Physician: Vasyl Mesa MD Primary Care Physician: Emeterio Cadena MD Attending Physician: Vasyl Mesa MD Admit Status: Direct Admit, Admit to Yellow Team Chief Complaint: 70-year-old woman with end-stage COPD presented to [facility], operated by [facility] emergency department on transfer from [facility] due to acute on chronic respiratory failure. History of Present Illness: The patient is currently obtunded and family are not present. History is obtained to chart records and conversation with emergency department M.D. She reportedly has experienced a decline in respiratory function over 1-2 days with reduced mental status. Recently been seen by the palliative care service at [facility] was recently discharged under "Comfort Care" care plan. Apparently her daughters, DPOA, expressed wish for full medical treatment without intubation or ACLS. Review of Systems: The patient is unable to perform ROS. Allergies Coded Allergies: lactose (Verified Allergy, Intermediate, Diarrhea, 01/16/16) Home Medications Albuterol nebulizer when necessary Combivent inhaler 4 times a day Alprazolam 0.25 mg daily at bedtime when necessary Amlodipine 10 mg daily Anastrozole 1 mg daily Apixiban and 2.5 mg twice a day Aspirin 81 mg daily Calcium carbonate and vitamin D 500/400 Cholecalciferol 1000 units Vitamin B12 2050 g Fluticasone/salmeterol 2 puffs twice a day Furosemide 20 mg daily Ibuprofen 600 mg 3 times a day when necessary Isosorbide mononitrate 30 mg daily TC Agudelo 1000 mg twice a day Loperamide 2 mg when necessary every 4 hours Lorazepam 0.5 mg every 12 hours when necessary Nicotine patch 7 mg/24 hours daily Omeprazole 20 mg daily Phenytoin 300 mg at bedtime Potassium chloride 10 mEq daily Prednisone 10 mEq daily Rosuvastatin 40 mg at bedtime Sertraline 100 mg daily PMH # COPD # Chronic diastolic CHF # Coronary artery disease # Diabetes mellitus # Hypertension # Pulmonary embolism # Seizure disorder #Strip CVA # Breast cancer Social History Hx Alcohol Use: No Hx Substance Use: No Hx Tobacco Use: Yes (0.5-1ppd) Smoking Status: Current Every Day Smoker Living Arrangement: Intermediate Facility Exam Vital Signs Vital Sign - Last Date Time Temp Pulse Resp B/P Pulse Ox O2 Delivery O2 Flow Rate FiO2 04/06/16 15:46 84 04/06/16 15:35 36.5 25 155/90 97 BiPAP 04/06/16 15:15 50 Exam General: Pale elderly woman with BiPAP mask somewhat somnolent HEENT: Pupils symmetric, sclerae anicteric, oral mucosa moist Neck: Supple Chest: Rhonchi from BiPAP, reduced breath sounds, prolonged expiration Cardiac: S1S2, no murmur Abdomen: BS normal, non-tender Extremities: No edema; stage I sacral erythema Neuro: Minimally responsive to verbal stim, cranial nerves appear symmetric, motor and sensory not testable Lab and Diagnostics Labs Labs from [facility]: Hgb 8.3 Serum creatinine 1.71, and 140, potassium 5.2, chloride 104, CO2 30, anion gap 6 , albumin 2.8, other hepatobiliary labs unremarkable ABG (:): 7.18/PCO2 84.5/PaO2 83 BNP 3390 (normal less than 100) X-Rays, CTs and MRIs Chest x-ray 04/06/16 at 11:09 Increased pleural effusions and minimal pulmonary edema with cardiomegaly compatible with congestive heart failure Assessment & Plan 70-year-old woman with end-stage COPD presents with acute on chronic respiratory failure with hypoxia and hypercarbia. Acute, active and or high-risk problems: # Acute on chronic respiratory failure with hypoxia and hypercarbia. Likely COPD exacerbation with acute diastolic congestive heart failure. - Oxygen support with BiPAP as needed # Acute on chronic COPD with exacerbation. - DuoNeb's and glucocorticoid pulse # Acute on chronic diastolic CHF. - Intravenous Lasix to achieve 2 L net negative fluid balance every 24 hours - Topical nitrates for blood pressure control and preload reduction - No beta blockers at present due to concern over COPD and bronchospasm - Morphine IV as needed for air hunger or other symptoms of distress # Acute kidney injury with CK D. Likely secondary to CHF. - Monitor daily BMP - Control potassium as needed with Kayexalate # Hypertension. Acutely uncontrolled at time of admission. Her pressure was 206/96 at [facility] emergency department. - Follow with current treatment of CHF - When necessary hydralazine as needed # History of pulmonary embolism on oral anticoagulant - Continue her rivaroxaban # Type 2 diabetes mellitus - Every 6 hours Regular Insulin correctional at present until patient is alert and taking a diet. # Goals of care. Patient is DO NOT RESUSCITATE/DO NOT INTUBATE per previous POLST. Family has indicated desire for full medical treatment of reversible conditions. Palliative care was engaged with patient during recent hospitalization at [facility] - Palliative care consult Chronic, stable, and/or resolved problems: - History of CVA, status post CEA - History of breast cancer on anastrozole - History of coronary artery disease. On aspirin, statin, when necessary nitroglycerin. - Depression on sertraline GI Prophylaxis: Not indicated VTE Prophylaxis: Other Resuscitation Status: DNR/DNI:Do Not Resuscitate/Intubate Time spent 55 minutes Vasyl Mesa MD Apr 06, 2016 16:15
[2016-04-06] MEDS: Sodium Chloride LOK Flush 10 mL Syringe IVFLUSH SCH (16:33)
--- NOTE | 2016-04-06 17:21 | ABG ---
DateTimeAnalyzed 17:14:00 -_ pH ____7.251 - pCO2 ___77.0__ -mmHg pO2 ___24.1__ -mmHg HCO3- ___32.6__ -mmol/L ABE ____4.9__ -mmol/L tHb ____7.9__ -g/dL O2Hb ___26.9__ -% COHb ____1.2__ -% MetHb ____1.0__ -% sO2 ___27.5__ -% FIO2 ___35.0__ -% Drawn By LAB - Date/Time Notified____ 17:21:00 -_ Spontaneous_RR ___29.0__ -b/min Oxygen Device 1 ____BIPAP - Notified By RC - Notified Whom ___MILLER - B 764 -mmHg tO2 ____3.0__ -Vol% Lars test N/A -
--- NOTE | 2016-04-06 18:44 | NUR ---
ADMIT TO [facility] Report received from JEROME Bryant in ED at [facility]. Patient arrived via EMS in stable condition, on BIPAP. Unresponsive upon arrival, require multiple sternal rubs to awaken. Initial BIPAP settings 35% FiO2 18/8, VBGs collected, improved values, so BIPAP settings changed to 28% FiO2, 16/8. Tele: SR in 70s w/ trigeminal PVCs, occasional bradycardia to 40s. BP WNL, she is afebrile. Mepilex applied to sacrum for redness w/ slight blanching to prevent pressure ulcer. Q2H turns implemented. Will continue to monitor respiratory status, telemetry and vitals.
[2016-04-06] MEDS: Insulin Human REGular 300 Unit/3 mL Inj SUBQ SCH (20:30)
[2016-04-06] MEDS: levETIRAcetam 500 mg Tablet PO SCH (20:30)
[2016-04-07] VITALS (13 sets, daily range): BP systolic 123–170; BP diastolic 58–83; PULSE 63–97; RESP 21–35; O2SAT 91–98
[2016-04-07] MEDS: Sodium Chloride LOK Flush 10 mL Syringe IVFLUSH SCH ×3 (00:52→15:25)
[2016-04-07] MEDS: LORazepam 0.5 mg Tablet PO PRN (01:47)
[2016-04-07] MEDS: Insulin Human REGular 300 Unit/3 mL Inj SUBQ SCH ×4 (02:30→17:51)
--- NOTE | 2016-04-07 04:37 | NUR ---
Mental Status/Tele/BiPAP Patient alert, restless, oriented to self and situation. Confused at times and forgetful. Frequent fidgeting with BiPAP mask. Maintaining SpO2 90-95%. Tele: sinus rhythm to sinus bradycardia with frequent PVCs.
[2016-04-07 06:00] LABS: Mean Corpuscular Hemoglobin 21.3 pg (27.0-35.0)
[2016-04-07 06:13] LABS: Magnesium 1.7 mg/dL (1.6-2.6)
[2016-04-07] MEDS ORDERED: Furosemide 10 mg/mL 4 mL Inj IVPUSH SCH (08:30)
[2016-04-07] MEDS: Isosorbide Mononitrate 30 mg ER24 Tablet PO SCH (10:25)
[2016-04-07] MEDS: predniSONE 20 mg Tablet PO SCH (10:25)
[2016-04-07] MEDS: levETIRAcetam 500 mg Tablet PO SCH ×2 (10:26→20:27)
--- NOTE | 2016-04-07 15:14 | PCM.PNMED ---
Subjective Date of Service Apr 07, 2016 Subjective 70-year-old woman with end-stage COPD presents with acute on chronic respiratory failure due to COPD and acute diastolic CHF. She is more alert today. Breathing is improved. Complaining about BiPAP mask not fitting. Experiencing intermittent leg cramps. Exam Vital Signs Vital Sign - Last Date Time Temp Pulse Resp B/P Pulse Ox O2 Delivery O2 Flow Rate FiO2 04/07/16 11:39 36.8 73 28 158/58 98 BiPAP 04/07/16 08:00 4.00 04/07/16 05:16 21 Intake and Output 04/06/16 04/06/16 04/07/16 Cumulative From/Thru 15:00 23:00 07:00 04/06/16 15:30 - 04/07/16 06:46 Intake Total 30 ml 30 ml Output Total 1200 ml 750 ml 1950 ml Balance -1200 ml -720 ml -1920 ml Intake Oral 0 ml 0 ml IV Total 30 ml 30 ml Output Urine Total 1200 ml 750 ml 1950 ml Exam General: Elderly woman in BiPAP mask mild respiratory distress HEENT: sclerae anicteric Neck: JVD is difficult to assess, neck is supple Chest: Good air movement, coarse inspiratory crackles bibasilar, only mild wheezing Cardiac: S1S2, no murmur audible over noise Abdomen: BS normal, non-tender Extremities: No edema; casts are symmetric, some palpable muscle spasm right calf Neuro: A&O, cranial nerves symmetric, motor strength 5/5 Lab and Diagnostics Result Diagram: 04/07/16 0450 04/07/16 0450 X-Rays, CTs and MRIs Chest x-ray 04/06/16 at 11:09 Increased pleural effusions and minimal pulmonary edema with cardiomegaly compatible with congestive heart failure Assessment & Plan 70-year-old woman with end-stage COPD presents with acute on chronic respiratory failure with hypoxia and hypercarbia. Acute, active and or high-risk problems: # Acute on chronic respiratory failure with hypoxia and hypercarbia. Likely COPD exacerbation with acute diastolic congestive heart failure. - Oxygen support with BiPAP as needed # Acute on chronic COPD with exacerbation. - DuoNeb's and glucocorticoid pulse # Acute on chronic diastolic CHF. ProBNP 18, 612. Fluid balance -1.9 L over first 24 hours. Urine output greater than 0.5 mL per KG per hour - Intravenous Lasix to achieve 2 L net negative fluid balance every 24 hours - Topical nitrates for blood pressure control and preload reduction if needed - No beta blockers at present due to concern over COPD and bronchospasm # Acute kidney injury with CK D. serum creatinine approximately 1.55 stapler first 24 hours. Likely secondary to CHF. - Monitor daily BMP - Control potassium as needed with Kayexalate # Muscle spasms and leg pain. No evidence of infection, clot or acute arthritis. - When necessary lorazepam and/or baclofen # Hypertension. Acutely uncontrolled at time of admission. Her pressure was 206/96 at [facility] emergency department. - Follow with current treatment of CHF - When necessary hydralazine as needed # History of pulmonary embolism on oral anticoagulant - Continue her rivaroxaban # Type 2 diabetes mellitus - Every 6 hours Regular Insulin correctional at present until patient is alert and taking a diet. # Goals of care. Patient is DO NOT RESUSCITATE/DO NOT INTUBATE per previous POLST. Family has indicated desire for full medical treatment of reversible conditions. Palliative care was engaged with patient during recent hospitalization at [facility] - Palliative care consult Chronic, stable, and/or resolved problems: - History of CVA, status post CEA - History of breast cancer on anastrozole - History of coronary artery disease. On aspirin, statin, when necessary nitroglycerin. - Depression on sertraline GI Prophylaxis: Not indicated VTE Prophylaxis: Other Resuscitation Status: DNR/DNI:Do Not Resuscitate/Intubate Time spent 35 minutes Vasyl Mesa MD Apr 07, 2016 15:14
[2016-04-07] MEDS: Pantoprazole 20 mg ER24 Tablet PO SCH (17:35)
[2016-04-07] MEDS ORDERED: Glucose 40% Oral Gel 15 Gm Tube PO PRN (18:05)
--- NOTE | 2016-04-07 18:19 | NUR ---
Oxygenation/Leg pain.. Pt transitioned early this am from bipap to use of trilogy which she used throughout the day alternating with nasal cannula for meals. Will desat to the 70's if off O2 for any length of time. This afternoon had acute onset of leg cramps mainly in the R leg. Pt became tachycardic, hypertensive and crying out in pain. Dr Mesa summoned to the bedside and pt was given Ativan .5 IV and baclofen and this has been effective in resolving pain. Daughter here and updated on status and plan of care.
[2016-04-07] MEDS: Phenytoin 100 mg ER Capsule PO SCH (20:27)
[2016-04-07] MEDS: Insulin LISPRO 300 Unit/3 mL Inj SUBQ SCH (20:30)
[2016-04-07] MEDS: Insulin GLARgine 100 Unit/mL Syringe SUBQ SCH (20:30)
[2016-04-08] VITALS (10 sets, daily range): BP systolic 116–177; BP diastolic 63–90; PULSE 70–86; RESP 21–30; O2SAT 93–99
[2016-04-08] MEDS: Sodium Chloride LOK Flush 10 mL Syringe IVFLUSH SCH ×3 (00:08→16:30)
[2016-04-08] MEDS: LORazepam 0.5 mg Tablet PO PRN (01:46)
--- NOTE | 2016-04-08 05:53 | NUR ---
Restless Pt restless in bed for majority of night, sleeping intermittently. Pt takes off trilogy mask intermittently as well. Ativan given for agitation. Pt became increasingly restless, swinging legs out of bed. Repositioned frequently. Trilogy taken off this am, as pt does not leave it on, placed on 3L NC with sats mid 90's. Pt requesting "2 cigarettes". RN denies and explains smoking policy and dangers of smoking while using oxygen. Pt discloses that she occasionally smokes while wearing oxygen at home. RN strongly advised against this. Pt states understanding. Pt still restless in bed and takes off NC occasionally, needing frequent rounding.
[2016-04-08] MEDS: Insulin LISPRO 300 Unit/3 mL Inj SUBQ SCH ×4 (08:00→22:00)
[2016-04-08] MEDS: Isosorbide Mononitrate 30 mg ER24 Tablet PO SCH ×2 (08:30→09:58)
[2016-04-08] MEDS: levETIRAcetam 500 mg Tablet PO SCH ×3 (08:30→20:52)
[2016-04-08] MEDS: predniSONE 20 mg Tablet PO SCH ×2 (08:30→09:59)
--- NOTE | 2016-04-08 08:42 | PCM.CONPAL ---
Date of Service Apr 08, 2016 Date of Hospital Admission: Apr 06, 2016 at 15:11 Date of Palliative Consult: Apr 08, 2016 Requesting Provider: Vasyl Mesa MD Reason Palliative Care Consult: Goals of Care Discussion Reason for Consultation Palliative Care received order from Dr Ivonne Mesa 04/06/16 to assist with goals of care. Patient is a 70 year old woman with end-stage COPD. She was readmitted 04/06/16 for care of acute on chronic respiratory failure with hypoxia and hypercarbia. Patient is well known to the Palliative Care team who saw her during most recent admission 03/13/16 - 03/29/16. Jessie Mitchell (daughter) [phone], Baljeet De Leon (friend) [phone] Hospital Unit @time of consult: Progressive Care (room 2020) Palliative Care Recommendation Summary of palliative recommendations: This is a 70 yr old woman known previously to the palliative care team. She is readmitted with expected dyspnea in keeping with known heart disease and COPD. Summary of palliative recommendations: -Symptom management (Pain/other) Dyspnea-chronic: 1. On 03/27/16 (prior admission)Dr. Persaud ordered low-dose morphine (0.5-1mg po q 3 hours) to try and control anxiety and dyspnea, however RNs did not use this prn order at all, so Dr. Lerma discontinued it on day of discharge, . Consider re-starting this scehduled for SOB, if plan evolves to comfort care again. Delirium: Palliative care believes she likely has some mild baseline dementia complicated by hospitalization, progressive weakness. She does not have capacity for complex decisions. she does state that she trusts Rossy and Jessie- daughters to be decision makers for her. Baseline-line dementia: Mentation and reasoning tends to improve as oxygenation improves. Insight is still marginal Per 03/27 Palliative Care Discussion with patient: held by Dr. Persaud when patient alert and talking. At that time, she was angry at her daughter due to decision for ECF. She acknowledges need for 24/ 7 care. She acknowledges that her grandson would not be able to manage this but she continues to insist that she wants to go home. She also notes one reason is that she does not really want to stop smoking. She fears ECF would not allow her to smoke. She acknowledges ongoing severe shortness of breath. She also acknowledges feeling short of breath even when oximetry is in the mid 90s. She is interested in trial of medications to decrease her sense of dyspnea. She has chronic diarrhea ever since her colectomy for colon CA. She acknowledges weight loss and lack of appetite Per 04/08 Discussion with Dtr Rossy and Dr. Lerma: Dr. Lerma counsels Rossy that although Courtney is improving with some support from hospital (steroids/ nebs/tweaking heart meds), Mrs. Almanzar still has end-stage heart and lung failure and ongoing decline is a reality. Dr. Lerma asks, do you really want your mother to keep coming back to the hospital repeatedly when hospice can help aggressively manage her symptoms in a facility? Daughters unable to meet [id number] today. Rossy says that she and Radha (dtrs) would like to have a Hospice information visit for their mother, and they would like to talk to CM re: prior facility Courtney was just placed in ([facility]). VICKEY Marinelli re: family request for hospice info visit. (Family have declined hospice info visit offered at previous admissions in late fall 2015 and in early Mar 2016.) Dr. Lerma gave Rossy the CM phone number re: placement issues. Dr. Lerma called CM to make them aware of family's request to speak with CM. Plan for 04/09: ongoing support from Palliative Care, see if daughters willing to meet in person to re-write POLST to their liking. With comfort care and hospice? or with limited interventions to include frequent return trips to hospital? Disposition: On Mrs Almanzar's 03/29/16 discharge, Case Management set up [facility] with Dr. Keating to follow. Rossy is now thinking about requesting an alternative SNF. DPOA/Advanced Directives/POLST: 1. prior POLST: DNR/DNI, limited. Reviewed 03/27 and goals were changed to DNR /DNI and comfort pathway. 2. On 04/06, Daughters Rossy (financial POA) and Radha (healthcare POA) told [facility] ED physician that the goal is DNR/DNI with return to hospital for reversible conditions (exacerbations of CHF/ COPD). 3. On 04/08, Rossy states she and her sister are interested in hospice info visit, and possibly trying to keep her mother in a facility, if they can keep her comfortable there when she becomes SOB. 4. Patient has prior HCPOA paperwork in paper chart now: 1. Maru Mitchell (daughter/healthcare POA) [phone], [phone]. 1st Alternate: Rossy Daniel (daughter- financial POA) [phone] Family/emotional support: Strong family support from two daughters Rossy and Radha. Additional Medical Diagnoses with primary management by Hospitalist team include : 1. Acute on chronic respiratory failure with hypoxia and hypercarbia. Likely COPD exacerbation with acute diastolic congestive heart failure. - Oxygen support with BiPAP as needed - DuoNeb's and glucocorticoid pulse 2. Acute on chronic diastolic CHF. ProBNP 18, 612. Fluid balance -1.9 L over first 24 hours. Urine output greater than 0.5 mL per KG per hour - Intravenous Lasix to achieve 2 L net negative fluid balance every 24 hours - Topical nitrates for blood pressure control and preload reduction if needed - No beta blockers at present due to concern over COPD and bronchospasm 3.Acute kidney injury with CK D. serum creatinine approximately 1.55 in first 24 hours. Likely secondary to CHF. 4. Muscle spasms and leg pain. No evidence of infection, clot or acute arthritis. Use when necessary lorazepam and or baclofen 5. Hypertension. Acutely uncontrolled at time of admission. Her pressure was 206/96 at [facility] emergency department. - Follow with current treatment of CHF - When necessary hydralazine as needed 6. History of pulmonary embolism on oral anticoagulant - Continue her rivaroxaban 7. Type 2 diabetes mellitus - Every 6 hours Regular Insulin correctional at present until patient is alert and taking a diet. Problems: End of Life Preferences pt prefers home; family not able to provide this. CM to assist. I believe patient is only partially decisional due to her inability to grasp severity of her disease and her care needs DNR/DNI and no feeding tube. Reviewed consideration for use of hospice for additional support particularly if she improves enough to be able to go home She is more accepting today than yesterday Resuscitation Status Resuscitation Status: DNR/DNI:Do Not Resuscitate/Intubate POLST Updates/Changes Previous POLST?: Yes POLST Last Review Date: Mar 27, 2016 Artificially Admin Nutrition: No Artifical Nutrition by Tube POLST Discussed with: Patient, Health Care Agent (DPOAHC) . Advanced Care Planning Address: POLST, Comfort care Pain: None Symptom management: Dyspnea Pt History History of Present Illness 70 yo lady with severe COPD oxygen and bipap dependent at baseline; active smoker, history of biliary colon CA and new breast CA but neither plays a role in this present illness. Hx of CAD with hx NV and chronic systolic CHF, AFIB and hx of CVA, DM type 2, depression, anxiety, seizure disorder, who was admitted 04/06 obtunded for acute on chronic respiratory failure due to COPD and acute diastolic CHF. No family present at time of admission. She reportedly has experienced a decline in respiratory function over 1-2 days with reduced mental status. Seen Mar 29 by the palliative care service at [facility] and discharged under comfort care to [facility] on March 29 plan after a 16 day admission for COPD exacerbation and CHF. Apparently her daughters, JIAN, via ED physician, expressed wish for full medical treatment without intubation or ACLS. Again, in speaking with Attending Dr. Mesa on 04/07, daughters express wish for full medical treatment of reversible conditions. POLST at Time of Admission Cardiopulmonary Resuscitation: DNR: Do Not Attempt Resuscitation Allergy Allergies Reviewed: Yes Medications Current Medications: Current Medications Sodium Chloride 10 ml Q8 IVFLUSH Last administered on 04/08/16 00:08; Admin Dose 10 ML; Start 04/06/16 at 16:30 Al Hydrox/Mg Hydrox/Simethicone 30 ml Q6H PRN PO; Start 04/06/16 at 15:35 Ondansetron HCl 4 to 8 mg Q4H PRN IVPUSH; Start 04/06/16 at 15:35 Senna 17.2 mg BID PRN PO; Start 04/06/16 at 15:35 Polyethylene Glycol 17 gm DAILY PRN PO; Start 04/06/16 at 15:35 Temazepam 15 mg HS PRN PO; Start 04/06/16 at 15:35 Nicotine 1 patch DAILY PRN TOPICAL; Start 04/06/16 at 15:35 Albuterol/ Ipratropium 3 ml Q4H PRN NEB Last administered on 04/07/16t 21:23; Admin Dose 3 ML; Start 04/06/16 at 15:35 Prednisone 40 mg DAILY PO Last administered on 04/07/16 10:25; Admin Dose 40 MG ; Start 04/07/16 at 08:30 Isosorbide Mononitrate 30 mg DAILY PO Last administered on 04/07/16 10:25; Admin Dose 30 MG; Start 04/07/16 at 08:30 Lorazepam 0.25-0.5 BID PRN PO Last administered on 04/08/16 01:46; Admin Dose 0.5 MG; Start 04/06/16 at 15:55 Apixaban 2.5 mg BID PO Last administered on 04/07/16 20:26; Admin Dose 2.5 MG; Start 04/06/16 at 20:30 Levetriacetam 1,000 mg BID PO Last administered on 04/07/16 20:27; Admin Dose 1 ,000 MG; Start 04/06/16 at 20:30 Pantoprazole 20 mg DAILYWD PO Last administered on 04/07/16 17:35; Admin Dose 20 MG; Start 04/06/16 at 17:30 Non-Formulary Medication 1,000 ml DAILY PRN MM; Start 04/06/16 at 15:55; Status UNV Sertraline HCl 100 mg DAILY PO Last administered on 04/07/16 10:27; Admin Dose 100 MG; Start 04/07/16 at 08:30 Hydralazine HCl 10 mg Q6H PRN IV; Start 04/06/16 at 16:15 Morphine Sulfate 2-4 mg Q2 PRN IVPUSH Last administered on 04/07/16 14:23; Admin Dose 2 MG; Start 04/06/16 at 16:15 Insulin Human Regular * Low Dose Insulin Algori... Q6 SUBQ Last administered on 04/07/16 17:51; Admin Dose 2 UNIT; Start 04/06/16 at 20:30; Stop 04/07/16 at 18 :07; Status DC Furosemide 40 mg BID IVPUSH Last administered on 04/07/16 10:23; Admin Dose 40 MG; Start 04/07/16 at 08:30; Stop 04/07/16 at 18:29; Status DC Aspirin 81 mg DAILY PO Last administered on 04/07/16 20:26; Admin Dose 81 MG; Start 04/07/16 at 18:42 Cholecalciferol 1,000 unit DAILY PO; Start 04/08/16 at 08:30 Phenytoin 300 mg HS PO Last administered on 04/07/16 20:27; Admin Dose 300 MG; Start 04/07/16 at 21:00 Anastrozole 1 mg DAILY PO Last administered on 04/07/16 20:26; Admin Dose 1 MG ; Start 04/07/16 at 18:30 Insulin Glargine 10 unit HS SUBQ Last administered on 04/07/16 20:30; Admin Dose 10 UNIT; Start 04/07/16 at 21:00 Insulin Human Lispro Nutritional Dose to be given pr... [facility] SUBQ Last administered on 04/07/16 20:30; Admin Dose 1 UNIT; Start 04/07/16 at 22:00 Furosemide 40 mg IVPUSH; Start 04/08/16 at 08:00 Scheduled Amlodipine (Amlodipine) 10 Mg Tablet 10 MG PO DAILY Anastrozole (Anastrozole) 1 Mg Tablet 1 MG PO DAILY Apixaban (Eliquis) 2.5 Mg Tablet 2.5 MG PO BID Aspirin (Aspirin) 81 Mg Tablet 81 MG PO DAILY Calcium Carbonate/Vitamin D3 (Calcium 500 + Vit D 400 Tablet) 1 Each Tablet 1 EACH PO BID Cholecalciferol (Vitamin D3) (Vitamin D) 1,000 Unit Tablet 1,000 UNIT PO DAILY Cyanocobalamin (Vitamin B-12) (Vitamin B-12) 250 Mcg Lozenge 250 MCG PO DAILY Fluticasone/Salmeterol (Advair Hfa 115-21 Mcg Inhaler) 12 Gm Hfa.aer.ad 2 PUFF INH BID Furosemide (Furosemide) 20 Mg Tab 20 MG PO DAILY Isosorbide MN ER (Isosorbide MN ER) 30 Mg Tab.er.24h 30 MG PO DAILY Levetiracetam (Levetiracetam) 1,000 Mg Tablet 1,000 MG PO BID Nicotine 7 mg/24 hr Patch (Nicotine 7 mg/24 hr Patch) 1 Each Patch.td24 1 PATCH TOPICAL DAILY Omeprazole (Omeprazole) 20 Mg Capsule.dr 20 MG PO DAILYWD Phenytoin Sodium Extended (Phenytoin Sodium Extended) 100 Mg Capsule 300 MG PO HS Potassium Chloride (Potassium Chloride) 10 Meq Capsule.er 10 MEQ PO DAILY TAKE WITH FOOD Rosuvastatin Calcium (Rosuvastatin Calcium) 40 Mg Tablet 40 MG PO HS Sertraline HCl (Sertraline) 100 Mg Tablet 100 MG PO DAILY Scheduled PRN Albuterol Neb Soln (Albuterol Neb Soln) 2.5 Mg/3 Ml Vial.neb 2.5 MG INH q2 hours PRN PRN For Shortness of Breath Albuterol/Ipratropium (Combivent Respimat Inhal [place]) 120 Spr/4 Gm Inhaler 1 PUFF IH QID PRN PRN For Shortness of Breath Ibuprofen (Ibuprofen) 600 Mg Tablet 600 MG PO TID PRN PRN For Pain Loperamide (Loperamide) 2 Mg Capsule 2-4 MG PO Q4H PRN PRN For Diarrhea or Loose Stool Lorazepam (Lorazepam) 0.5 Mg Tablet 0.25-0.5 MG PO q12 hours PRN PRN For Anxiety Nitroglycerin SL (Nitrostat) 0.4 Mg Tab.subl 0.4 MG SL Q5MIN PRN PRN For Chest Pain Saliva Substitution Combo No.9 (Biotene) 1,000 Ml Mouthwash 1,000 ML MM DAILY PRN PRN dry mouth Objective Findings Exam Vital Sign - Last Date Time Temp Pulse Resp B/P Pulse Ox O2 Delivery O2 Flow Rate FiO2 04/08/16 03:00 36.7 74 24 162/63 98 TRIOLOGY 4.00 04/07/16 08:00 28 Intake and Output 04/07/16 04/07/16 04/08/16 Cumulative From/Thru 15:00 23:00 07:00 04/06/16 15:30 - 04/08/16 06:03 Intake Total 1540 ml 400 ml 1970 ml Output Total 1250 ml 550 ml 3750 ml Balance 290 ml -150 ml -1780 ml Intake Oral 1540 ml 400 ml 1940 ml IV Total 30 ml Output Urine Total 1250 ml 550 ml 3750 ml # Bowel Movements 2 1 3 General: Alert/Oriented x3, Person, Place, Situation, Mild distress, Other ( sleeping deeply, not awakened with verbal or tactile stimuli. breathing room air , not on trilogy.) HEENT: Atraumatic, PERRLA, EOMI, Scleral Anicteric, Mucous Membranes Dry Heart: Normal S1, S2, No Murmurs/Rubs/Gallops, Dysrhythmia Present (irregularly , irregular) Lungs: Coarse, Crackles Abdomen: Benign, Bowel Tones x4, Soft, Non Tender Neuro: Other (right hemiparesis at baseline (prior CVA)) Extremities: Pulses Palpable x4, Warm, No Edema Skin: Other (hyperpigmented skin of hands lower arms, bilaterally,prominent small veins/capillaries of hands/wrist) Lab/Diagnostics Lab and Imaging results reviewed in detail in EMR. Time spent Total time 70 minutes; >50% face to face with patient and/or family, providing counselling regarding plans and recommendations, and in care coordination with his/her medical teams. I also spent an additional 35 minutes counseling for advanced care planning with the patient/the patients family/the surrogate decision maker. Adilene Lerma MD Apr 08, 2016 08:42
[2016-04-08] MEDS: Pantoprazole 20 mg ER24 Tablet PO SCH ×2 (09:58→17:55)
[2016-04-08] MEDS: Furosemide 10 mg/mL 4 mL Inj IVPUSH SCH ×2 (10:01→16:46)
--- NOTE | 2016-04-08 10:52 | NUR ---
Palliative Care Palliative Care received order from Dr Ivonne Mesa 04/06/16 to assist with goals of care. Patient is a 70 year old woman with end-stage COPD. She was readmitted 04/06/16 for care of acute on chronic respiratory failure with hypoxia and hypercarbia. Patient is well known to the Palliative Care team who saw her during most recent admission 03/13/16 - 03/29/16. Jessie Mitchell (daughter) [phone], Baljeet De Leon (friend) [phone] Palliative Care to follow. Ghada Meng
--- NOTE | 2016-04-08 11:33 | NUR ---
Palliative care note D/A: Palliative care referral received today from Dr. Mesa. Note that pt went to SNF on rehab last admit and is a transfer to [facility] from [facility]. PC had been involved in past admit in regards to possible hospice and info visit had been set up. Family had declined visit. Dr. Lerma has spoken to Rossy this am who expresses interest in [facility] info visit. Phone call to Adelaide at [facility] who is able to arrange for 2;30 visit. Phone call to Rossy (h [phone], c [phone] and w [phone]) via her cell. She indicates she is at work today until 1500 and can arrive to [facility] at 1530. She requests visit be rescheduled for 1530. This worker inquires as to if Jessie would be also able to attend visit today. Rossy agrees to call Jessie. Case discussed further with Adelaide from [facility] who kindly changes time to 1530. Rossy calls back to note she has left message for sister Jessie. This worker alerts roxann Cardoza as to [facility] info visit today at 1530. P: Palliative care to follow. Francisca FLORES, CCM
[2016-04-08 11:47] LABS: APPEARANCE,URINE HAZY (CLEAR,HAZY); COLOR,URINE YELLOW (YELLOW); OCCULT BLOOD,URINE TRACE (NEGATIVE); PH,URINE 6.5 (5.0-8.0); UROBILINOGEN,URINE NORMAL (NORMAL)
--- NOTE | 2016-04-08 14:42 | NUR ---
Wound care Pressure injury protocol received, pt seen at bedside. 70-year-old woman with end-stage COPD presents with acute on chronic respiratory failure due to COPD and acute diastolic CHF. Sleeping soundly in a CCU sport bed. No pressure related skin issues at this time.
--- NOTE | 2016-04-08 17:08 | NUR ---
BP Pt receiving lasix IV. BP 180/90. Pt unable to swallow pills r/t unable to stay awake to swallow safely. Notified , ok to hold meds until she wakes up more this afternoon. Gave morning PO meds at 1230. At 1700 VC=677/85. Notified , awaiting new orders. Pt asymptomatic.
--- NOTE | 2016-04-08 17:20 | NUR ---
Social Work Note: Initial Assessment Data& Assessment: EMR reviewed. Pt is a readmit. SW met with pt and pt daughter Rossy at bedside, to discuss discharge planning. SW phone number provided. Courtney Almanzar is a 70 year old female admitted on 04/06/2016 for respiratory distress. Pt has [employer] Medicare and DS supplement. Pt came from [facility]. Pt previously lived with her daughter in [place]. Pt has a HH hx with [facility]. Pt does not have LTC insurance or VA insurance. SW requested copy of DPOA paperwork. Pt daughters had hospice information visit today and plan to follow up with hospice SW and hospital SW regarding whether or not pt would like to open with their services. Per Hospice SW, there was confusion regarding pt Trilogy machine at [facility] and question on whether or not pt was receiving her Trilogy Machine treatments while at the facility. Per Hospice SW there is a care conference with pt family and [facility] tomorrow. When SW met with pt daughter regarding discharge planning, pt daughter explained she is in communication with [facility] and she is agreeable to pt returning to the facility. Pt and pt daughter deny any needs at this time. SW left voicemail with [facility] admissions regarding pt return. SW to await call back and continue to follow. Plan: Anticipated discharge back to [facility]. SW to follow up with pt and pt family regarding return and potential opening with hospice. Pt and pt daughter deny any other needs at this time. SW to continue to follow. MELVI Martini Addendum: 04/08/16 at 1728 by DANIELE WATTERS Amended: Links added.
--- NOTE | 2016-04-08 17:34 | PCM.PNMED ---
Subjective Date of Service Apr 08, 2016 Subjective 70-year-old woman with end-stage COPD presents with acute on chronic respiratory failure due to COPD and acute diastolic CHF. She is sleepy and not interested in conversation today.. Breathing is improved moderately. Leg cramps seem less prominent. No other complaints. Exam Vital Signs Vital Sign - Last Date Time Temp Pulse Resp B/P Pulse Ox O2 Delivery O2 Flow Rate FiO2 04/08/16 12:30 36.7 86 24 169/71 98 Nasal Cannula 2.00 04/07/16 08:00 28 Intake and Output 04/07/16 04/07/16 04/08/16 Cumulative From/Thru 15:00 23:00 07:00 04/06/16 15:30 - 04/08/16 06:03 Intake Total 1540 ml 400 ml 1970 ml Output Total 1250 ml 550 ml 3750 ml Balance 290 ml -150 ml -1780 ml Intake Oral 1540 ml 400 ml 1940 ml IV Total 30 ml Output Urine Total 1250 ml 550 ml 3750 ml # Bowel Movements 2 1 3 Exam General: Elderly woman in BiPAP mask, with unlabored breathing HEENT: sclerae anicteric Neck: JVD is difficult to assess, neck is supple Chest: Good air movement, coarse inspiratory crackles bibasilar, no wheeze Cardiac: S1S2, no murmur Abdomen: BS normal, non-tender Extremities: No edema; legs are symmetric, Neuro: A&O but minimal conversation, cranial nerves symmetric, moving all 4 extremities normally Lab and Diagnostics Result Diagram: 04/07/16 0450 04/08/16 0336 X-Rays, CTs and MRIs Chest x-ray 04/06/16 at 11:09 Increased pleural effusions and minimal pulmonary edema with cardiomegaly compatible with congestive heart failure Assessment & Plan 70-year-old woman with end-stage COPD presents with acute on chronic respiratory failure with hypoxia and hypercarbia. Acute, active and or high-risk problems: # Acute on chronic respiratory failure with hypoxia and hypercarbia. Likely COPD exacerbation with acute diastolic congestive heart failure. - Oxygen support with BiPAP as needed # Acute on chronic COPD with exacerbation. - DuoNeb's and glucocorticoid pulse # Acute on chronic diastolic CHF. ProBNP 18, 612. Fluid balance -2 L over first 48 hours. Urine output greater than 0.5 mL per KG per hour - Intravenous Lasix to achieve 2 L net negative fluid balance every 24 hours - Topical nitrates for blood pressure control and preload reduction if needed - No beta blockers at present due to concern over COPD and bronchospasm # Acute kidney injury with CK D. serum creatinine approximately 1.55 stapler first 24 hours. Likely secondary to CHF. - Monitor daily BMP - Control potassium as needed with Kayexalate # Muscle spasms and leg pain. No evidence of infection, clot or acute arthritis. - When necessary lorazepam and/or baclofen # Hypertension. Acutely uncontrolled at time of admission. Her pressure was 206/96 at [facility] emergency department. - Follow with current treatment of CHF and aggressive Lasix therapy - Resume home dose of amlodipine - When necessary hydralazine or enalaprilat as needed # History of pulmonary embolism on oral anticoagulant - Continue her rivaroxaban # Type 2 diabetes mellitus - Every 6 hours Regular Insulin correctional at present until patient is alert and taking a diet. # Goals of care. Patient is DO NOT RESUSCITATE/DO NOT INTUBATE per previous POLST. Family has indicated desire for full medical treatment of reversible conditions. Palliative care was engaged with patient during recent hospitalization at [facility] - Palliative care consult Chronic, stable, and/or resolved problems: - History of CVA, status post CEA - History of breast cancer on anastrozole - History of coronary artery disease. On aspirin, statin, when necessary nitroglycerin. - Depression on sertraline Pain Evaluation: Adequate Pain Control GI Prophylaxis: Not indicated VTE Prophylaxis: Other Resuscitation Status: DNR/DNI:Do Not Resuscitate/Intubate Time spent 35 minutes Vasyl Mesa MD Apr 08, 2016 17:34
[2016-04-08] MEDS: Phenytoin 100 mg ER Capsule PO SCH (20:52)
[2016-04-08] MEDS: Insulin GLARgine 100 Unit/mL Syringe SUBQ SCH ×2 (21:00→22:56)
[2016-04-09] VITALS (9 sets, daily range): BP systolic 116–163; BP diastolic 41–104; PULSE 61–95; RESP 28–38; O2SAT 91–100
[2016-04-09] MEDS: Sodium Chloride LOK Flush 10 mL Syringe IVFLUSH SCH ×4 (00:44→23:30)
--- NOTE | 2016-04-09 04:16 | NUR ---
Restless/Trilogy Pt has restless periods, throwing bedding off , complaining about trilogy mask being uncomfortable, the being content, no C/O DELMI gutierrez , Trilogy w 4 L O2 to sleep, 4 L NC while awake. Tele: 67. Addendum: 04/09/16 at 0507 by CARLA COLON RN Gave 10 Mg Hyrdalazine for Systolic BP over 160 x 1
[2016-04-09] MEDS: Furosemide 10 mg/mL 4 mL Inj IVPUSH SCH ×2 (08:59→17:16)
[2016-04-09] MEDS: predniSONE 20 mg Tablet PO SCH (09:00)
[2016-04-09] MEDS: levETIRAcetam 500 mg Tablet PO SCH ×2 (09:02→20:27)
[2016-04-09] MEDS: Isosorbide Mononitrate 30 mg ER24 Tablet PO SCH (09:02)
[2016-04-09] MEDS: Insulin LISPRO 300 Unit/3 mL Inj SUBQ SCH ×4 (09:05→21:18)
--- NOTE | 2016-04-09 12:47 | NUR ---
Palliative care note D/A: Phone call today from Jane at [facility]. She provided info visit to pt dtr's Jessie and Rossy on 04/08/16 at 3:30p. Additional family members were present. This was family's first hospice info visit. Other info visits had been set up since last fall but were not able to occur. Family with many questions and needing education on what it means to be on comfort care and making a decision to no longer call 911 and elect to not return to acute care but instead focus on alleviating symptoms and comfort. It is noted that pt has a Trilogy. Family indicated that they have a meeting today with [facility]. Jane has asked them to please call her at [facility] to discuss their decision regarding having Hospice open pt for care. Per CLERICAL INVESTIGATOR note on 04/08/16, family is open to pt returning to [facility]. Have left message for [facility] in relation to above. P: Palliative to continue to follow. Francisca FLORES CCM Addendum: 04/09/16 at 1558 by JESSIE MAZARIEGOS PC note amendment Phone call to Jane [facility] at about 3:30. She has not heard from family in regards to wish for [facility] services. Phone call to [facility] and have alerted her to above. Francisca FLORES [facility]
--- NOTE | 2016-04-09 13:51 | NUR ---
NUTRITION ASSESSMENT: ASSESS: Pt is a 70yo F admitted for respiratory distress. Pt has end-stage COPD. She is on and off bipap. Currently on diabetic diet with fair PO at 50%x2 meals. Palliative care is involve and family had a hospice info meeting on 04/08. Per chart review, wt has overall been stable. PMHX: COPD, CHF, CAD, T2DM, HTN, PE, CVA, Breast Ca LABS: Reviewed. CO2 34, Bun 38, Grab Hooker 1.1, Glu 160, Ca 7.5, Alb 3.0 MEDS: Reviewed. GI: BMx1 04/09 SKIN: Willie 20, no PU per WC CURRENT WTS: 49.8kg, BMI 21.4kg/m2 DIET: Diabetic, PO 50% EST. NEEDS: COPD Kcals: 1495-1745kcal/day (30-35kcal/kg) Pro: 60-75g/day (1.2-1.5g/kg) NUTRITION DIAGNOSIS: 1.) Increased nutrient needs related to increased demand for nutrients as evidence by pt with end-stage COPD NUTRITION INTERVENTION: 1.) Will add Glucerna on L tray MONITOR / EVAL: PO, wt, labs, GI, POC, nutrition status. Will continue to monitor per moderate nutrition risk guidelines
--- NOTE | 2016-04-09 16:32 | NUR ---
O2 needs I have been increasing and decreasing pt's O2 all day while the pt is resting in bed, started out NC 3.5L at 95%, sometimes she dropped to 86% and I would then turn her up to 5L NC, she would then come up to 99% and I would turn her back down to 3L and she would sat fine then we would do it all over again. However with activity on 5L SBA to the BSC the pt would drop to 73-75% and become SOB. aware and will continue to monitor.
[2016-04-09] MEDS: Pantoprazole 20 mg ER24 Tablet PO SCH (17:16)
--- NOTE | 2016-04-09 17:22 | NUR ---
Responsiveness Around 1700 the pt was being visited by her grandson. He was having a hard time waking her, I came in and tried and even did a sternal rub. PT not responding. O2 was 96 3L, charge nurse called and she came to evaluate her. BG was checked and 206, pt eventually woke. She mumbled things and about 10 minutes later was able to state where she was. End tidal CO2 was hooked up and resulting in 40-50's, O2 94% on NC1L. Will continue to monitor.
--- NOTE | 2016-04-09 18:10 | PCM.PNMED ---
Subjective Date of Service Apr 09, 2016 Subjective 70-year-old woman with end-stage COPD presents with acute on chronic respiratory failure due to COPD and acute diastolic CHF. She is sleepy and not interested in conversation today. Breathing seems improved but she remains tachypnea. No other complaints. Exam Vital Signs Vital Sign - Last Date Time Temp Pulse Resp B/P Pulse Ox O2 Delivery O2 Flow Rate FiO2 04/09/16 17:15 88 04/09/16 16:25 36.7 29 156/53 100 Nasal Cannula 3.50 04/07/16 08:00 28 Intake and Output 04/08/16 04/08/16 04/09/16 Cumulative From/Thru 15:00 23:00 07:00 04/06/16 15:30 - 04/09/16 06:04 Intake Total 1020 ml 200 ml 3190 ml Output Total 2100 ml 900 ml 6750 ml Balance -1080 ml -700 ml -3560 ml Intake Oral 1020 ml 200 ml 3160 ml IV Total 30 ml Output Urine Total 2100 ml 900 ml 6750 ml # Bowel Movements 2 1 6 Exam General: Elderly woman with nasal cannula sleeping upside down in bed HEENT: sclerae anicteric Neck: JVD is difficult to assess, neck is supple Chest: Reduced breath sounds, coarse inspiratory crackles bibasilar, no wheeze Cardiac: S1S2, no murmur Abdomen: BS normal, non-tender Extremities: No edema; legs are symmetric, Neuro: Minimal conversation, cranial nerves symmetric, moving all 4 extremities normally IVs and Medications Medications Reviewed: Medications were reviewed in detail Lab and Diagnostics Result Diagram: 04/07/16 0450 04/09/16 0358 X-Rays, CTs and MRIs Chest x-ray 04/06/16 at 11:09 Increased pleural effusions and minimal pulmonary edema with cardiomegaly compatible with congestive heart failure Assessment & Plan 70-year-old woman with end-stage COPD presents with acute on chronic respiratory failure with hypoxia and hypercarbia. Acute, active and or high-risk problems: # Acute on chronic respiratory failure with hypoxia and hypercarbia. Likely COPD exacerbation with acute diastolic congestive heart failure. - Oxygen support with BiPAP as needed # Acute on chronic COPD with exacerbation. - DuoNeb's and glucocorticoid pulse # Acute on chronic diastolic CHF. ProBNP 18, 612. Fluid balance -4 L over first 72 hours. Urine output greater than 0.5 mL per KG per hour - Intravenous Lasix to achieve 0.5-1 L net negative fluid balance every 24 hours - Topical nitrates for blood pressure control and preload reduction if needed - No beta blockers at present due to concern over COPD and bronchospasm # Acute kidney injury with CK D. serum creatinine 1.58 on admission. Likely secondary to CHF. Now improving with diuresis and oxygen therapy. - Monitor daily BMP # Muscle spasms and leg pain. No evidence of infection, clot or acute arthritis. - When necessary lorazepam and/or baclofen # Hypertension. Acutely uncontrolled at time of admission. Her pressure was 206/96 at [facility] emergency department. - Follow with current treatment of CHF and aggressive Lasix therapy - Resume home dose of amlodipine, increase as needed - When necessary hydralazine or enalaprilat as needed # History of pulmonary embolism on oral anticoagulant - Continue her rivaroxaban # Type 2 diabetes mellitus - Every 6 hours Regular Insulin correctional at present until patient is alert and taking a diet. # Goals of care. Patient is DO NOT RESUSCITATE/DO NOT INTUBATE per previous POLST. Family has indicated desire for full medical treatment of reversible conditions. Palliative care was engaged with patient during recent hospitalization at [facility] - Palliative care consult Chronic, stable, and/or resolved problems: - History of CVA, status post CEA - History of breast cancer on anastrozole - History of coronary artery disease. On aspirin, statin, when necessary nitroglycerin. - Depression on sertraline GI Prophylaxis: Not indicated VTE Prophylaxis: Other VTE Mechanical Devices: Intermittant Pneumatic CD Resuscitation Status: DNR/DNI:Do Not Resuscitate/Intubate Time spent 25 minutes Vasyl Mesa MD Apr 09, 2016 18:10
--- NOTE | 2016-04-09 18:15 | PCM.PNPALL ---
Date of Service Apr 09, 2016 Date of Hospital Admission: Apr 06, 2016 at 15:11 Date of Palliative Consult: Apr 08, 2016 Palliative Care Recommendation Summary of palliative recommendations: This is a 70 yr old woman known previously to the palliative care team. She is readmitted with expected dyspnea in keeping with known heart disease and COPD. Summary of palliative recommendations: 04/09/16-Patient is more alert and reasonable in discussion. She does want to go home but she understands why she might do better at a facility (at least for a while). She seems almost a bit resigned today but only if not given alternative. The patient does not want to be put on a ventilator. She does not think it bad if she "dies in her sleep" especially considering her belief that she will never be able to be at home. She does not consider ECF as quality of life. (she can still go back to her far of not being able to smoke but I don't think she has smoked since last hospitalization-I think this is evidence of her memory loss and not great ability to reason) She is not for hospice because she states her daughter is against it--we have reviewed this admission and last that Rossy was interested in an info visit from hospice and could see the potential benefit. Will try and get in touch with Rossy tomorrow re ECF and hospice option. -Symptom management (Pain/other) Dyspnea-chronic: 1. On 03/27/16 (prior admission)Dr. Persaud ordered low-dose morphine (0.5-1mg po q 3 hours) to try and control anxiety and dyspnea, however RNs did not use this prn order at all, so Dr. Lerma discontinued it on day of discharge, . Consider re-starting this scehduled for SOB, if plan evolves to comfort care again. Delirium: Palliative care believes she likely has some mild baseline dementia complicated by hospitalization, progressive weakness. She does not have capacity for complex decisions. she does state that she trusts Rossy and Jessie- daughters to be decision makers for her. Baseline-line dementia: Mentation and reasoning tends to improve as oxygenation improves. Insight is still marginal Per 03/27 Palliative Care Discussion with patient: held by Dr. Persaud when patient alert and talking. At that time, she was angry at her daughter due to decision for ECF. She acknowledges need for 24/ 7 care. She acknowledges that her grandson would not be able to manage this but she continues to insist that she wants to go home. She also notes one reason is that she does not really want to stop smoking. She fears F would not allow her to smoke. She acknowledges ongoing severe shortness of breath. She also acknowledges feeling short of breath even when oximetry is in the mid 90s. She is interested in trial of medications to decrease her sense of dyspnea. She has chronic diarrhea ever since her colectomy for colon CA. She acknowledges weight loss and lack of appetite Per 04/08 Discussion with Dtkraig Blair and Dr. Lerma: Dr. Lerma counsels Rossy that although Courtney is improving with some support from hospital (steroids/ nebs/tweaking heart meds), Mrs. Almanzar still has end-stage heart and lung failure and ongoing decline is a reality. Dr. Lerma asks, do you really want your mother to keep coming back to the hospital repeatedly when hospice can help aggressively manage her symptoms in a facility? Daughters unable to meet [id number] today. Rossy says that she and Radha (dtrs) would like to have a Hospice information visit for their mother, and they would like to talk to CM re: prior facility Courtney was just placed in ([facility]). VICKEY Marinelli re: family request for hospice info visit. (Family have declined hospice info visit offered at previous admissions in late fall 2015 and in early Mar 2016.) Dr. Lerma gave Rossy the CM phone number re: placement issues. Dr. Lerma called CM to make them aware of family's request to speak with CM. Plan for 04/09: ongoing support from Palliative Care, see if daughters willing to meet in person to re-write POLST to their liking. With comfort care and hospice? or with limited interventions to include frequent return trips to hospital? Disposition: On Mrs Almanzar's 03/29/16 discharge, Case Management set up [facility] with Dr. Keating to follow. Rossy is now thinking about requesting an alternative SNF. DPOA/Advanced Directives/POLST: 1. prior POLST: DNR/DNI, limited. Reviewed 03/27 and goals were changed to DNR /DNI and comfort pathway. 2. On 04/06, Daughters Rossy (financial POA) and aRdha (healthcare POA) told [facility] ED physician that the goal is DNR/DNI with return to hospital for reversible conditions (exacerbations of CHF/ COPD). 3. On 04/08, Rossy states she and her sister are interested in hospice info visit, and possibly trying to keep her mother in a facility, if they can keep her comfortable there when she becomes SOB. 4. Patient has prior HCPOA paperwork in paper chart now: 1. Marulaureano Mitchell (daughter/healthcare POA) [phone], [phone]. 1st Alternate: Rossy Daniel (daughter- financial POA) [phone] Family/emotional support: Strong family support from two daughters Rossy and Radha. Additional Medical Diagnoses with primary management by Hospitalist team include : 1. Acute on chronic respiratory failure with hypoxia and hypercarbia. Likely COPD exacerbation with acute diastolic congestive heart failure. - Oxygen support with BiPAP as needed - DuoNeb's and glucocorticoid pulse 2. Acute on chronic diastolic CHF. ProBNP 18, 612. Fluid balance -1.9 L over first 24 hours. Urine output greater than 0.5 mL per KG per hour - Intravenous Lasix to achieve 2 L net negative fluid balance every 24 hours - Topical nitrates for blood pressure control and preload reduction if needed - No beta blockers at present due to concern over COPD and bronchospasm 3.Acute kidney injury with CK D. serum creatinine approximately 1.55 in first 24 hours. Likely secondary to CHF. 4. Muscle spasms and leg pain. No evidence of infection, clot or acute arthritis. Use when necessary lorazepam and or baclofen 5. Hypertension. Acutely uncontrolled at time of admission. Her pressure was 206/96 at [facility] emergency department. - Follow with current treatment of CHF - When necessary hydralazine as needed 6. History of pulmonary embolism on oral anticoagulant - Continue her rivaroxaban 7. Type 2 diabetes mellitus - Every 6 hours Regular Insulin correctional at present until patient is alert and taking a diet. Problems: End of Life Preferences pt prefers home; family not able to provide this. CM to assist. I believe patient is only partially decisional due to her inability to grasp severity of her disease and her care needs DNR/DNI and no feeding tube. Reviewed consideration for use of hospice for additional support particularly if she improves enough to be able to go home She is more accepting today than yesterday Resuscitation Status Resuscitation Status: DNR/DNI:Do Not Resuscitate/Intubate POLST Updates/Changes Previous POLST?: Yes POLST Last Review Date: Mar 27, 2016 Artificially Admin Nutrition: No Artifical Nutrition by Tube POLST Discussed with: Patient, Health Care Agent (DPOAHC) Palliative Subjective Palliative Care Daily Responde: Patient, Team Brief History 70 yo with severe COPD and CHF admitted from [place] following increasing dyspnea and progressive obtundation. Subjective Patient has recall that she was sent from the [place]-unclear to her why they did that- to [facility] ER and then to here for admit. She states she used her CPAP-on occasion but she acknowledges she breathes better with it. Palliative Performance Scale PPS Ambulation: Mainly Sit/Lie PPS Activity: Unable to do most activity PPS Self-Care: Considerable assistance required PPS Intake: Normal or reduced PPS Conscious Level: Full or drowsey, +/- confusion Performace Scale: 50% ( to 40%) Responsive Patient Symptoms Anorexia: Moderate Shortness of Breath: Moderate Objective Findings Exam Vital Sign - Last Date Time Temp Pulse Resp B/P Pulse Ox O2 Delivery O2 Flow Rate FiO2 04/09/16 17:15 88 04/09/16 16:25 36.7 29 156/53 100 Nasal Cannula 3.50 04/07/16 08:00 28 Intake and Output 04/08/16 04/08/16 04/09/16 Cumulative From/Thru 15:00 23:00 07:00 04/06/16 15:30 - 04/09/16 06:04 Intake Total 1020 ml 200 ml 3190 ml Output Total 2100 ml 900 ml 6750 ml Balance -1080 ml -700 ml -3560 ml Intake Oral 1020 ml 200 ml 3160 ml IV Total 30 ml Output Urine Total 2100 ml 900 ml 6750 ml # Bowel Movements 2 1 6 General: Alert/Oriented x3, Person, Place, Situation, Mild distress, Other ( sleeping deeply, not awakened with verbal or tactile stimuli. breathing room air , not on trilogy.) HEENT: Atraumatic, PERRLA, EOMI, Scleral Anicteric, Mucous Membranes Dry Heart: Normal S1, S2, No Murmurs/Rubs/Gallops, Dysrhythmia Present (irregularly , irregular) Lungs: Coarse, Crackles Abdomen: Benign, Bowel Tones x4, Soft, Non Tender Neuro: Other (right hemiparesis at baseline (prior CVA)) Extremities: Pulses Palpable x4, Warm, No Edema Skin: Other (hyperpigmented skin of hands lower arms, bilaterally,prominent small veins/capillaries of hands/wrist) Lab/Diagnostics Lab and Imaging results reviewed in detail in EMR. BNP 18.6 CR 1.5 and Hgb 7.1 Patient/Family Conference Discussion/Goals of Care Discussion FAMILY UNDERSTANDING OF DISEASE: DISEASE PROGRESSION/EVIDENCE OF DECLINE: SYMPTOM BURDEN: GOALS: HOPES/WORRIES: FAMILY WISHES/VALUES: Do you want to be told truth about his illness, even if unpleasant? Does family want to know prognosis when it can be predicted, to better guide treatment decisions? What is quality of life for the patient: to be able to interact with their loved ones and friends, to travel, not to be bedbound, to be independent in taking care of themselves: Would patient choose quality of life over quantity of life? Would comfort care be more important than being awake and alert? If patient is no longer alert and aware because of their illness, would you choose comfort for them? Palliative Care counselled: Time spent Total time [ 45] minutes; >50% face to face with patient and/or family, providing counselling regarding plans and recommendations, and in care coordination with his/her medical teams. I also spent an additional [ ] minutes counseling for advanced care planning with the patient/the patients family/the surrogate decision maker. copies to: Emteerio Cadena MD, Deborah A MD Apr 09, 2016 18:15
[2016-04-09] MEDS: Phenytoin 100 mg ER Capsule PO SCH (20:27)
[2016-04-09] MEDS: Insulin GLARgine 100 Unit/mL Syringe SUBQ SCH (21:18)
[2016-04-10 03:25] VITALS: BP 123/66; PULSE 60; RESP 20; O2SAT 95
[2016-04-10 04:45] LABS: Mean Corpuscular Volume 78.4 fL (81-100)
--- NOTE | 2016-04-10 05:13 | NUR ---
oxygen pt wear her trilogy most of the night with a 3L bleed in. pt sleeping on and off most of the night, restless at times, SpO2 low 90s. pt SB-SR with PVCs and PACs rate 50-65, pt denies any pain
[2016-04-10 07:32] VITALS: BP 122/47; PULSE 40; RESP 19; O2SAT 97
--- NOTE | 2016-04-10 07:38 | NUR ---
Social Work Note: Continued Discharge Planning Data& Assessment:SW spoke with pt daughter Rossy who explained that the family believes they would like to open with hospice services but SW will need to confirm with pt other daughter Jessie. SW left voicemail with pt daughter Jessie regarding discharge planning. Pt daughter Rossy did confirm that the plan is still for pt to return to [facility] when medically ready. SW to follow up with pt daughter Jessie and hospice regarding opening date availability this week just in case. SW to continue to follow. Plan: Anticipated discharge to [facility] when medically ready. SW to follow to r/o Hospice. SW to follow up with pt daughter Jessie and hospice regarding opening date availability this week just in case. SW to continue to follow. MELVI Martini
[2016-04-10] MEDS: Insulin LISPRO 300 Unit/3 mL Inj SUBQ SCH ×3 (08:00→18:27)
[2016-04-10] MEDS: Furosemide 10 mg/mL 4 mL Inj IVPUSH SCH (08:00)
[2016-04-10] MEDS: Sodium Chloride LOK Flush 10 mL Syringe IVFLUSH SCH ×2 (08:11→16:54)
[2016-04-10] MEDS: predniSONE 20 mg Tablet PO SCH (08:12)
[2016-04-10] MEDS: levETIRAcetam 500 mg Tablet PO SCH (08:13)
[2016-04-10] MEDS: Isosorbide Mononitrate 30 mg ER24 Tablet PO SCH (08:48)
--- NOTE | 2016-04-10 09:13 | NUR ---
KEITH: Patient unable to accept KEITH asked VERIFICATION MANAGER to follow with daughters via phone.
[2016-04-10 10:24] VITALS: PULSE 67
[2016-04-10 11:16] VITALS: PULSE 33; RESP 21; O2SAT 100
--- NOTE | 2016-04-10 11:22 | NUR ---
AM Medications Questioned giving Amlodipine, Imdur, Lasix and Lisinopril with HR staying between 45-58. Conversed with Moshe and he wanted all to be given and will change IV lasix to PO lasix. HR came up in the 60's later this am, will continue to monitor.
--- NOTE | 2016-04-10 11:38 | NUR ---
Palliative care note D/A: Case discussed today in PC/PCC rounds. Phone call from Cherie at [facility] who indicates that family has not contacted them regarding decision about [facility]. [facility] would like family to have understanding that [facility] cannot support Trilogy machine and that pt would need to be on bipap. [facility] is also noting that it would be best care for pt to have all family members, specifically Jessie and Rossy on board regarding decision about Hospice. roxann Deutsch is working on communicating with family in regards to hospice. This worker has discussed with Dr. Persaud. She has worked with this family in the past. She will contact pt dtr Jessie to discuss [facility] and Trilogy machine. Dr. Persaud has left message for Jessie, awaiting call in return. Have also discussed with Cherie at [facility]. Pt not currently on schedule but agency does have an opening for pt if above issues are resolved. Current plan is that pt will return to [facility] on 04/11/16. P: Palliative care to continue to follow. Francisca Mazariegos [facility], [facility] Addendum: 04/11/16 at 1235 by JESSIE MAZARIEGOS Palliative care note amendment Case discussed with Dr. Persaud later in day. She has not been able to discuss with family and has left message. Pt medically stable for dc. Dr. Persaud advises discharge to SNF. Phone call to [facility] [facility] [facility], message left regarding appropriate for dc. P: Awaiting family decision regarding hospice. Pt is stable and has appropriate dc option with SNF. Pt can dc to SNF allowing family to come to a decision regarding Hospice. Francisca FLORES [facility] Addendum: 04/11/16 at 1237 by JESSIE MAZARIEGOS Palliative care note (late note for 04/10/16) Also called and discussed above with COLBY Crespo. EVELYN
[2016-04-10 12:57] VITALS: BP 149/64; PULSE 67; RESP 25; O2SAT 97
--- NOTE | 2016-04-10 16:16 | PCM.DIMED ---
Discharge Instructions Date of Service Apr 10, 2016 Dates of Hospitalization Apr 06, 2016 at 15:11 Discharge Diagnosis Discharge Diagnosis Acute on chronic respiratory failure; acute on chronic diastolic heart failure; chronic kidney disease stage III; anemia of chronic disease Diet Diabetic Activity No restrictions Call your provider Shortness of breath Patient Instructions It is important that she wear her BiPAP/Trilogy device regularly to reduce the strain on her heart and prevent flare of your congestive heart failure. Follow-up Provider: Emeterio Cadena MD Follow-up with PCP in: Other (at your next scheduled appointment or sooner if you are having difficulties) Vasyl Mesa MD Apr 10, 2016 14:22
[2016-04-10 16:54] VITALS: BP 126/50; PULSE 59; RESP 23; O2SAT 96
--- NOTE | 2016-04-10 16:59 | PCM.DC.MED ---
Discharge Summary Date of Service Apr 10, 2016 Dates of Hospitalization Date of Hospital Admission Apr 06, 2016 at 15:11 Date of Discharge: Apr 10, 2016 Providers: Admitting Physician: Raisa Mesa MD Primary Care Physician: Emeterio Cadena MD Attending Physician: Raisa Mesa MD Diagnosis at Time of Discharge Diagnosis at Time of Discharge Acute on chronic respiratory failure; acute on chronic diastolic heart failure; chronic kidney disease stage III; anemia of chronic disease Consultations Palliative care: Summary of palliative recommendations: 04/09/16-Patient is more alert and reasonable in discussion. She does want to go home but she understands why she might do better at a facility (at least for a while). She seems almost a bit resigned today but only if not given alternative. The patient does not want to be put on a ventilator. She does not think it bad if she "dies in her sleep" especially considering her belief that she will never be able to be at home. She does not consider ECF as quality of life. (she can still go back to her far of not being able to smoke but I don't think she has smoked since last hospitalization-I think this is evidence of her memory loss and not great ability to reason) She is not for hospice because she states her daughter is against it--we have reviewed this admission and last that Rossy was interested in an info visit from hospice and could see the potential benefit. Will try and get in touch with Rossy tomorrow re ECF and hospice option. Dr. Moni Persaud Palliative care note D/A: Case discussed today in PC/PCC rounds. Phone call from Cherie at [facility] who indicates that family has not contacted them regarding decision about HN[facility]. [facility] would like family to have understanding that [facility] cannot support Trilogy machine and that pt would need to be on bipap. [facility] is also noting that it would be best care for pt to have all family members, specifically Jessie and Rossy on board regarding decision about Hospice. This worker has discussed with Dr. Persaud. She has worked with this family in the past. She will contact pt dtr Jessie to discuss HNW and Trilogy machine. Dr. Persaud has left message for Jessie, awaiting call in return. Have also discussed with Cherie at [facility]. Pt not currently on schedule but agency does have an opening for pt if above issues are resolved. Current plan is that pt will return to [facility]. Jessie WATTERS . Procedures XRay, CTs & MRIs Chest x-ray 04/06/16 at 11:09 Increased pleural effusions and minimal pulmonary edema with cardiomegaly compatible with congestive heart failure Brief History History of Present Illness (per admission note): 70-year-old woman with end-stage COPD presented to [facility] emergency department on transfer from [facility] due to acute on chronic respiratory failure. She has been reportedly not compliant with her BiPAP. There were no other new clinical complaints noted at the time of admission. At the time of admission, patient is currently obtunded and family are not present. History is obtained to chart records and conversation with emergency department M.D. She reportedly has experienced a decline in respiratory function over 1-2 days with reduced mental status. Recently been seen by the palliative care service at [facility] was recently discharged under "Comfort Care" care plan. Apparently her daughters, DPOA, expressed wish for full medical treatment without intubation or ACLS. . Hospital Course # Acute on chronic respiratory failure with hypoxia and hypercarbia. Will picture is COPD decompensation due to poor BiPAP compliance, with acute diastolic congestive heart failure due to hypoxic respiratory failure.. - Oxygen support with BiPAP as needed - Reinforce need for use of Trilogy pressure support device, a low she wishes to transition to comfort care measures with opioid treatment of respiratory distress. - Palliative care was again consulted to help manage this patient's end-stage and near-terminal respiratory failure. # Acute on chronic diastolic CHF. Lung exam revealed bilateral rales in most lung gilman. ProBNP was markedly elevated at 18, 612. Fluid balance -4 L over first 72 hours. Urine output greater than 0.5 mL per KG per hour. - She is returned to her baseline daily Lasix at time of discharge # Acute on chronic COPD with exacerbation. She was not clearly bronchospastic upon admission. - DuoNeb's - She briefly received a glucocorticoid pulse # Acute kidney injury with CK D. serum creatinine 1.58 on admission. Likely secondary to CHF. Now improving with diuresis and oxygen therapy. Creatinine declined to 1.1-1.24 at time of discharge - Stable # Muscle spasms and leg pain. No evidence of infection, clot or acute arthritis. - Resolved # Hypertension. Acutely uncontrolled at time of admission. Her pressure was 206/96 at [facility] emergency department. - Returned to her prior medications without changes at time of discharge # History of pulmonary embolism on oral anticoagulant - Continue her rivaroxaban # Type 2 diabetes mellitus -She was treated with basal bolus insulin coverage then return to her usual medications at time of discharge. Other chronic, stable, and/or resolved problems: - History of CVA, status post CEA - History of breast cancer on anastrozole - History of coronary artery disease. On aspirin, statin, when necessary nitroglycerin. - Depression on sertraline . Exam Vital Signs (Last) Date Time Temp Pulse Resp B/P Pulse Ox O2 Delivery O2 Flow Rate FiO2 04/10/16 12:57 36.6 67 25 149/64 97 Nasal Cannula 2.00 04/07/16 08:00 28 Exam General: Elderly woman with nasal cannula sleeping upside down in bed HEENT: sclerae anicteric Neck: JVD is difficult to assess, neck is supple Chest: Reduced but coarse breath sounds, generally clear, no wheeze Cardiac: S1S2, no murmur Abdomen: BS normal, non-tender Extremities: No edema; Neuro: Minimal conversation but nods head affirmatively about discharge from hospital today, cranial nerves symmetric, moving all 4 extremities normally Test 04/06/16 16:45 04/07/16 04:50 04/08/16 06:38 04/10/16 03:22 Hemoglobin A1c 7.3% (4.8-5.6) Total Bilirubin 0.2mg/dL (0.0-1.2) Aspartate Amino Transf (AST/SGOT) 28U/L (0-50) Alanine Aminotransferase (ALT/SGPT) 28U/L (0-32) Alkaline Phosphatase 168U/L (25-165) Pro-B-Type Natriuretic Peptide 52581hw/mL (0-301) Total Protein 6.0g/dL (6.4-8.4) Albumin 3.0g/dL (3.4-5.0) Magnesium Level 1.7mg/dL (1.6-2.6) Urine Color Yellow (YELLOW) Urine Appearance Hazy (CLEAR,HAZY) Urine pH 6.5 (5.0-8.0) Urine Specific Powell 1.010 (1.003-1.035) Urine Protein 30mg/dL (NEG,TRACE) Urine Glucose (UA) Negativemg/dL (NEGATIVE) Urine Ketones Negativemg/dL (NEGATIVE) Urine Occult Blood Trace (NEGATIVE) Urine Nitrite Negative (NEGATIVE) Urine Bilirubin Negative (NEGATIVE) Urine Urobilinogen Normalmg/dL (NORMAL) Urine Leukocyte Esterase Trace (NEGATIVE) Urine RBC 0-2/hpf (0-2) Urine WBC 0-5/hpf (0-5) Urine Epithelial Cells Occasional/hpf (NONE-MOD) Urine Crystals None seen (NONE SEEN) Urine Bacteria Few/hpf (NONE-FEW) Urine Hyaline Casts None/lpf (NONE) Urine Granular Casts None seen (NONE SEEN) Urine Waxy Casts None seen (NONE SEEN) Urine Red Blood Cell Casts None seen (NONE SEEN) Urine White Blood Cell Casts None seen (NONE SEEN) Urine Mucus None seen (None Seen) Urine Trichomonas None seen (NONE SEEN) Urine Yeast None (NONE SEEN) Urinalysis Comment None Urine Culture Reflexed Indicated White Blood Count 5.6th/mm3 (3.8-10.1) Red Blood Count 3.47mil/mm3 (3.90-5.20) Hemoglobin 7.3g/dL (12.0-15.6) Hematocrit 27.2% (35.0-46.0) Mean Corpuscular Volume 78.4fL (81-100) Mean Corpuscular Hemoglobin 21.0pg (27.0-35.0) Mean Corpuscular Hemoglobin Concent 26.8% (32.0-37.0) Red Cell Distribution Width 18.2% (12.3-15.4) Platelet Count 151bil/L (150-400) Sodium Level 144mEq/L (134-144) Potassium Level 3.8mEq/L (3.5-5.2) Chloride Level 100mEq/L (97-108) Carbon Dioxide Level 34mmol/L (18-29) Blood Urea Nitrogen 37mg/dL (8-27) Creatinine 1.24mg/dL (0.57-1.00) Estimat Glomerular Filtration Rate 61mL/min (>59) Glucose Level 101mg/dL (60-99) Calcium Level 7.5mg/dL (8.5-10.1) Discharge Medications Discharge Medications Amlodipine (Amlodipine) 10 Mg Tablet 10 MG PO DAILY (Reported) Anastrozole (Anastrozole) 1 Mg Tablet 1 MG PO DAILY (Reported) Apixaban (Eliquis) 2.5 Mg Tablet 2.5 MG PO BID Prescribed by: RAISA MESA MD Aspirin (Aspirin) 81 Mg Tablet 81 MG PO DAILY (Reported) Calcium Carbonate/Vitamin D3 (Calcium 500 + Vit D 400 Tablet) 1 Each Tablet 1 EACH PO BID (Reported) Cholecalciferol (Vitamin D3) (Vitamin D) 1,000 Unit Tablet 1,000 UNIT PO DAILY ( Reported) Cyanocobalamin (Vitamin B-12) (Vitamin B-12) 250 Mcg Lozenge 250 MCG PO DAILY ( Reported) Fluticasone/Salmeterol (Advair Hfa 115-21 Mcg Inhaler) 12 Gm Hfa.aer.ad 2 PUFF INH BID (Reported) Furosemide (Furosemide) 20 Mg Tab 20 MG PO DAILY Prescribed by: RUDDY COVINGTON MD Isosorbide MN ER (Isosorbide MN ER) 30 Mg Tab.er.24h 30 MG PO DAILY (Reported) Levetiracetam (Levetiracetam) 1,000 Mg Tablet 1,000 MG PO BID (Reported) Nicotine 7 mg/24 hr Patch (Nicotine 7 mg/24 hr Patch) 1 Each Patch.td24 1 PATCH TOPICAL DAILY Prescribed by: ROBERTO RODRÍGUEZ MD Omeprazole (Omeprazole) 20 Mg Capsule.dr 20 MG PO DAILYWD Prescribed by: ROBERTO RODRÍGUEZ MD Phenytoin Sodium Extended (Phenytoin Sodium Extended) 100 Mg Capsule 300 MG PO HS (Reported) Rosuvastatin Calcium (Rosuvastatin Calcium) 40 Mg Tablet 40 MG PO HS (Reported) Sertraline HCl (Sertraline) 100 Mg Tablet 100 MG PO DAILY (Reported) As needed Albuterol Neb Soln (Albuterol Neb Soln) 2.5 Mg/3 Ml Vial.neb 2.5 MG INH q2 hours PRN PRN For Shortness of Breath (Reported) Albuterol/Ipratropium (Combivent Respimat Inhal Milligan) 120 Spr/4 Gm Inhaler 1 PUFF IH QID PRN PRN For Shortness of Breath (Reported) Ibuprofen (Ibuprofen) 600 Mg Tablet 600 MG PO TID PRN PRN For Pain (Reported) Loperamide (Loperamide) 2 Mg Capsule 2-4 MG PO Q4H PRN PRN For Diarrhea or Loose Stool (Reported) Lorazepam (Lorazepam) 0.5 Mg Tablet 0.25-0.5 MG PO q12 hours PRN PRN For Anxiety (Reported) Nitroglycerin SL (Nitrostat) 0.4 Mg Tab.subl 0.4 MG SL Q5MIN PRN PRN For Chest Pain (Reported) Saliva Substitution Combo No.9 (Biotene) 1,000 Ml Mouthwash 1,000 ML MM DAILY PRN PRN dry mouth (Reported) Followup Plan Disposition: [facility] SNF Discharge Diet: Diabetic Discharge Activity: No restrictions Patient Instructions It is important that she wear her BiPAP/Trilogy device regularly to reduce the strain on her heart and prevent flare of your congestive heart failure. Follow-up Provider: Emeterio Cadena MD Follow-up with PCP in: Other (at your next scheduled appointment or sooner if you are having difficulties) Time spent 35 minutes of patient assessment in care coordination on the unit. copies to: Emeterio Cadena MD, Jeffrey W MD Apr 10, 2016 16:30
--- NOTE | 2016-04-10 18:12 | NUR ---
Social Work Note : Discharge Data& Assessment: EMR reviewed. Per pt is medically ready for discharge. SW confirmed with Lisa from [facility] to confirm they are able to accept pt and meet pt's needs for Trilogy. Pt daughters are still deciding on whether or not they would like to open with Hospice and plan to follow up with Hospice in the next 1-2 days. Pt daughter Rossy at bedside and stated she will transport pt Trilogy to [facility]. SW arranged Medicaid Transport Wheelchair van for 6:30p.m. Pt, RN, MD, and facility all updated and agreeable to plan. Pt and pt daughter Rossy deny any other needs. No other discharge needs identified. Plan: Per pt is medically ready to discharge back to [facility] via wheelchair van and pt daughters plan to follow up with Hospice on whether or not they would like to open services. Pt, RN, , and facility all updated and agreeable to plan. Pt and pt daughter Rossy deny any other needs. No other discharge needs identified. MELVI Martini
--- NOTE | 2016-04-10 18:24 | NUR ---
Discharge Pt discharged via yellow cab, daughter at side. All belongings taken with, pt stated she had brought her purse but no records of it on admit. Pt is a diabetic, gave 4 units insulin prior to leaving and sent her with a pudding and grilled cheese if there is no food available at the facility for her being this late. IV and tele removed, brief changed prior to leaving, all questions answered, packet sent with pt and belongings. Report called to JEROME.
--- NOTE | 2016-04-10 21:42 | PCM.PALLBR ---
Palliative Care Recommendation Summary of palliative recommendations: This is a 70 yr old woman known previously to the palliative care team. She is readmitted with expected dyspnea in keeping with known heart disease and COPD. Summary of palliative recommendations: 04/10/16- Msg left with daughter Jessie-no return call. Called Sidney -- other daughter who said she thought they were in agreement about hospice. Informed re issue of Trilogy switching to CPAP if decides to go on Hospice. She stated she would review this with her sister and call us back. Still pending Reviewed with hospitalist and SS/CM-decision on hospice may not come from her daughters and if medically stable she can return to [facility]. Encouraged use of Trilogy through eveing but also for naps etc. Close monitoring fo fluid balance to minimize input of CHF on lung dysfxn Reviewed poor prognosis due to severity of lung ds and heart ds. 04/09/16-Patient is more alert and reasonable in discussion. She does want to go home but she understands why she might do better at a facility (at least for a while). She seems almost a bit resigned today but only if not given alternative. The patient does not want to be put on a ventilator. She does not think it bad if she "dies in her sleep" especially considering her belief that she will never be able to be at home. She does not consider ECF as quality of life. (she can still go back to her far of not being able to smoke but I don't think she has smoked since last hospitalization-I think this is evidence of her memory loss and not great ability to reason) She is not for hospice because she states her daughter is against it--we have reviewed this admission and last that Rossy was interested in an info visit from hospice and could see the potential benefit. Will try and get in touch with Rossy tomorrow re ECF and hospice option. -Symptom management (Pain/other) Dyspnea-chronic: 1. On 03/27/16 (prior admission)Dr. Persaud ordered low-dose morphine (0.5-1mg po q 3 hours) to try and control anxiety and dyspnea, however RNs did not use this prn order at all, so Dr. Lerma discontinued it on day of discharge, . Consider re-starting this scehduled for SOB, if plan evolves to comfort care again. Delirium: Palliative care believes she likely has some mild baseline dementia complicated by hospitalization, progressive weakness. She does not have capacity for complex decisions. she does state that she trusts Rossy and Jessie- daughters to be decision makers for her. Baseline-line dementia: Mentation and reasoning tends to improve as oxygenation improves. Insight is still marginal Per 03/27 Palliative Care Discussion with patient: held by Dr. Persaud when patient alert and talking. At that time, she was angry at her daughter due to decision for ECF. She acknowledges need for 24/ 7 care. She acknowledges that her grandson would not be able to manage this but she continues to insist that she wants to go home. She also notes one reason is that she does not really want to stop smoking. She fears ECF would not allow her to smoke. She acknowledges ongoing severe shortness of breath. She also acknowledges feeling short of breath even when oximetry is in the mid 90s. She is interested in trial of medications to decrease her sense of dyspnea. She has chronic diarrhea ever since her colectomy for colon CA. She acknowledges weight loss and lack of appetite Per 04/08 Discussion with Dtr Rossy and Dr. Lerma: Dr. Lerma counsels Rossy that although Courtney is improving with some support from hospital (steroids/ nebs/tweaking heart meds), Mrs. Almanzar still has end-stage heart and lung failure and ongoing decline is a reality. Dr. Lrema asks, do you really want your mother to keep coming back to the hospital repeatedly when hospice can help aggressively manage her symptoms in a facility? Daughters unable to meet [id number] today. Rosys says that she and Radha (dtrs) would like to have a Hospice information visit for their mother, and they would like to talk to CM re: prior facility Courtney was just placed in ([facility]). VICKEY Marinelli re: family request for hospice info visit. (Family have declined hospice info visit offered at previous admissions in late fall 2015 and in early Mar 2016.) Dr. Lerma gave Rossy the CM phone number re: placement issues. Dr. Lerma called CM to make them aware of family's request to speak with CM. Plan for 04/09: ongoing support from Palliative Care, see if daughters willing to meet in person to re-write POLST to their liking. With comfort care and hospice? or with limited interventions to include frequent return trips to hospital? Disposition: On Mrs Almanzar's 03/29/16 discharge, Case Management set up [facility] with Dr. Keating to follow. Rossy is now thinking about requesting an alternative SNF. DPOA/Advanced Directives/POLST: 1. prior POLST: DNR/DNI, limited. Reviewed 03/27 and goals were changed to DNR /DNI and comfort pathway. 2. On 04/06, Daughters Rossy (financial POA) and Radha (healthcare POA) told [facility] ED physician that the goal is DNR/DNI with return to hospital for reversible conditions (exacerbations of CHF/ COPD). 3. On 04/08, Rossy states she and her sister are interested in hospice info visit, and possibly trying to keep her mother in a facility, if they can keep her comfortable there when she becomes SOB. 4. Patient has prior HCPOA paperwork in paper chart now: 1. Maru Mitchell (daughter/healthcare POA) [phone], [phone]. 1st Alternate: Rossy Daniel (daughter- financial POA) [phone] Family/emotional support: Strong family support from two daughters Rossy and Radha. Additional Medical Diagnoses with primary management by Hospitalist team include : 1. Acute on chronic respiratory failure with hypoxia and hypercarbia. Likely COPD exacerbation with acute diastolic congestive heart failure. - Oxygen support with BiPAP as needed - DuoNeb's and glucocorticoid pulse 2. Acute on chronic diastolic CHF. ProBNP 18, 612. Fluid balance -1.9 L over first 24 hours. Urine output greater than 0.5 mL per KG per hour - Intravenous Lasix to achieve 2 L net negative fluid balance every 24 hours - Topical nitrates for blood pressure control and preload reduction if needed - No beta blockers at present due to concern over COPD and bronchospasm 3.Acute kidney injury with CK D. serum creatinine approximately 1.55 in first 24 hours. Likely secondary to CHF. 4. Muscle spasms and leg pain. No evidence of infection, clot or acute arthritis. Use when necessary lorazepam and or baclofen 5. Hypertension. Acutely uncontrolled at time of admission. Her pressure was 206/[address] [facility] emergency department. - Follow with current treatment of CHF - When necessary hydralazine as needed 6. History of pulmonary embolism on oral anticoagulant - Continue her rivaroxaban 7. Type 2 diabetes mellitus - Every 6 hours Regular Insulin correctional at present until patient is alert and taking a diet. Problems: End of Life Preferences pt prefers home; family not able to provide this. CM to assist. I believe patient is only partially decisional due to her inability to grasp severity of her disease and her care needs DNR/DNI and no feeding tube. Reviewed consideration for use of hospice for additional support particularly if she improves enough to be able to go home She is more accepting today than yesterday Goals of Care DNR/DNI Disposition To [facility] Resuscitation Status Resuscitation Status: DNR/DNI:Do Not Resuscitate/Intubate POLST Updates/Changes Previous POLST?: Yes POLST Last Review Date: Mar 27, 2016 Artificially Admin Nutrition: No Artifical Nutrition by Tube POLST Discussed with: Patient, Health Care Agent (DPOAHC) . Symptom management: Drowsiness/sleepiness, Dyspnea Total time [ 50] minutes; >50% face to face with patient and/or family, providing counselling regarding plans and recommendations, and in care coordination with his/her medical teams. I also spent an additional [ ] minutes counseling for advanced care planning with the patient/the patients family/the surrogate decision maker. Palliative Brief Note Date of Service Apr 10, 2016 . Patient in bed with her head at the foot of bed which is her usual position. She has NC on but wore her Trilogy most of the night. She notes her SOB is uncomfortable but about normal. She remains angry about having to go to [facility]-wants to go home. Reviewed OK to work at pending sale to [employer] to see if she could get home She continues to be not interested in hospice. Sat on N/C 90-94% RR 25, shallow respir/rapid no edema mentation appropriate Hgb 7.3, BNP 18K diuresed 5# Moni Persaud MD Apr 10, 2016 21:42
== END 2016-04-10 18:20 | DRG 189 ==
LOC: PCC 15:11
PROVIDERS: ADMIT Internal Medicine; ATTEND Internal Medicine
PROC: 4A033R1 Measurement of Arterial Saturation, Peripheral, Percutaneous Approach (ICD-10-PCS; principal; 2016-04-06)
DX: J96.21 Acute and chronic respiratory failure with hypoxia (principal); I50.33 Acute on chronic diastolic (congestive) heart failure; J44.1 Chronic obstructive pulmonary disease with (acute) exacerbation; N17.9 Acute kidney failure, unspecified; J96.22 Acute and chronic respiratory failure with hypercapnia; E11.9 Type 2 diabetes mellitus without complications; Z79.52 Long term (current) use of systemic steroids; Z86.711 Personal history of pulmonary embolism; Z79.82 Long term (current) use of aspirin; I12.9 Hypertensive chronic kidney disease with stage 1 through stage 4 chronic kidney disease, or unspecified chronic kidney disease; Z85.3 Personal history of malignant neoplasm of breast; Z66 Do not resuscitate; Z86.73 Personal history of transient ischemic attack (TIA), and cerebral infarction without residual deficits; Z51.5 Encounter for palliative care; N18.3 Chronic kidney disease, stage 3 (moderate); F32.9 Major depressive disorder, single episode, unspecified; I25.10 Atherosclerotic heart disease of native coronary artery without angina pectoris